=== PATIENT | male | born 1990 | race Two or more races ===

== ENCOUNTER 2018-04-27 02:12 | Emergency (ER) | payer MEDICAID ==
[~2018-04-27] VITALS: Ht 182.9 cm; Wt 79.4 kg
[2018-04-27] MEDS ORDERED: IV NS 0.9% 1,000 ML BAG IV ONE ×2 (02:30→04:00)
--- NOTE | 2018-04-27 02:30 | NUR ---
PT BIBSELF COMPLAINING OF GENERALIZED BODY PAIN X7 HOURS. PT COMPLAINING OF ABDOMINAL PAIN, NAUSEA, HEADACHE. PT DENIES SOB, CHEST PAIN, V/D. PT IS AAOX4. RESPIRATIONS EVEN AND UNLABORED. SKIN WARM AND INTACT. NO ACUTE DISTRESS NOTED AT THIS TIME. PT PLACED ON MONITOR, WILL CONTINUE TO MONITOR.
--- NOTE | 2018-04-27 02:41 | NUR ---
RT AT BEDSIDE FOR ABG
--- NOTE | 2018-04-27 02:45 | NUR ---
IV INITIATED LEFT AC 18G. LABS DRAWN FROM SITE. ELEMENTARY INSTRUCTIONAL COACH AT BEDSIDE FOR COLLECTION. IV INTACT AND PATENT.
[2018-04-27 02:48] LABS: ABG BASE EXCESS -1.9 mmol/L; ABG OXYGEN SATURATION 95.2 % (92.0-98.5); ABG PCO2 42.1 mmHg (35.0-45.0); ABG PH 7.364 (7.350-7.450); ABG PO2 86.5 mmHg (75.0-100.0); AaDO2 12.8 mmHg; COHb 3.2 % (0.5-1.5); O2Hb 92.2 % (94.0-97.0); SITE, ABG Right Radial; VENT MODE, BG ROOM AIR
[2018-04-27] MEDS ORDERED: oxyCODONE/APAP (5/325 MG) 1 UDTAB TABLET ONE (02:59)
[2018-04-27] MEDS ORDERED: ONDANSETRON HCL/PF 4 MG/2 ML VIAL ONE (02:59)
[2018-04-27] MEDS ORDERED: oxyCODONE/APAP (5/325 MG) 1 UDTAB TABLET PO ONE (03:00)
[2018-04-27] MEDS ORDERED: ONDANSETRON HCL/PF - ER 4 MG/2 ML VIAL IV ONE (03:00)
[2018-04-27 03:08] LABS: BASOPHILS # (AUTO) 0.1 /CMM (0.0-0.2); BASOPHILS % (AUTO) 0.9 % (0.0-2.0); EOSINOPHILS % (AUTO) 0.6 % (0.0-6.0); HEMATOCRIT 44 % (39-51); HEMOGLOBIN 14.5 g/dL (13.5-17.5); LYMPHOCYTES % (AUTO) 28.4 % (20.0-44.0); MEAN CORPUSCULAR HGB CONC 33 g/dl (31.0-36.0); MEAN CORPUSCULAR VOLUME 94 fL (80-96); MONOCYTES # (AUTO) 0.8 /CMM (0.1-1.30); MONOCYTES % (AUTO) 7.4 % (2.0-12.0); NEUTROPHILS # (AUTO) 6.7 /CMM (1.8-8.9); NEUTROPHILS % (AUTO) 62.7 % (43.0-81.0); PLATELET COUNT (AUTO) 264 /CMM (150-450); RED BLOOD CELL COUNT(AUTO) 4.66 MIL/uL (4.5-6.0); WHITE BLOOD COUNT (AUTO) 10.7 K/uL (4.3-11.0)
[2018-04-27 03:36] LABS: ALBUMIN 3.8 g/dL (3.4-5.0); BILIRUBIN,DIRECT 0.1 mg/dL (0.0-0.2); BILIRUBIN,TOTAL 0.7 mg/dL (0.2-1.0); CALCIUM, SERUM 8.8 mg/dL (8.5-10.1); CREATININE 1.4 mg/dL (0.6-1.3); TOTAL PROTEIN, SERUM 7.7 g/dL (6.4-8.2)
[2018-04-27] MEDS ORDERED: POTASSIUM CHLORIDE 20 MEQ TAB.PRT.SR PO ONE ×2 (04:00→04:07)
[2018-04-27] MEDS ORDERED: INSULIN REGULAR, HUMAN 100 UNIT/ML 10 ML VIAL IV ONE (04:00)
[2018-04-27] MEDS ORDERED: INSULIN REGULAR, HUMAN 100 UNIT/ML 10 ML VIAL ONE (04:07)
--- NOTE | 2018-04-27 05:27 | NUR ---
PT RESTING COMFORTABLY IN BED. DOZING INTERMITTENTLY BUT EASILY AROUSABLE. VITAL SIGNS STABLE. WILL CONTINUE TO MONITOR
[2018-04-27 06:15] LABS: CALCIUM, SERUM 7.7 mg/dL (8.5-10.1); CREATININE 1.3 mg/dL (0.6-1.3); POTASSIUM 3.6 mmol/L (3.5-5.1)
[2018-04-27 09:09] VITALS: BP 152/88
== END 2018-04-27 09:10 | disposition home or self-care (01) ==
LOC: ER 02:15
DX: E10.10 Type 1 diabetes mellitus with ketoacidosis without coma (principal); Z90.89 Acquired absence of other organs
CPT/HCPCS: 36415; 36600; 80048-TC; 80076-TC; 82010-TC; 82803-TC; 82962-TC; 83605-TC; 85025-TC; A4606; J1815; J2405; J7030; Z7610

== ENCOUNTER 2018-08-13 01:46 | Emergency (ER) | payer MEDICAID ==
[~2018-08-13] VITALS: Ht 182.9 cm; Wt 77.1 kg
--- NOTE | 2018-08-13 01:56 | NUR ---
PT BIBS FOR NAUSEA X ALL DAY; PT AAOX4, PT ON MONITOR, BS OF = HI; VSS, NAD NOTED, CHEKO RIZVI
[2018-08-13] MEDS ORDERED: ONDANSETRON HCL/PF 4 MG/2 ML VIAL ONE (01:59)
[2018-08-13] MEDS ORDERED: IV NS 0.9% 1,000 ML BAG IV ONE ×2 (02:00→03:30)
[2018-08-13] MEDS ORDERED: ONDANSETRON HCL/PF - ER 4 MG/2 ML VIAL IV ONE (02:00)
[2018-08-13] MEDS ORDERED: KETOROLAC TROMETHAMINE INJ 30 MG/ML VIAL ONE (02:05)
[2018-08-13 02:13] LABS: BASOPHILS # (AUTO) 0.1 /CMM (0.0-0.2); BASOPHILS % (AUTO) 0.6 % (0.0-2.0); EOSINOPHILS % (AUTO) 0.5 % (0.0-6.0); HEMATOCRIT 42 % (39-51); HEMOGLOBIN 13.8 g/dL (13.5-17.5); LYMPHOCYTES # (AUTO) 2.3 /CMM (0.8-4.8); LYMPHOCYTES % (AUTO) 23.1 % (20.0-44.0); MEAN CORPUSCULAR HGB CONC 33 g/dl (31.0-36.0); MEAN CORPUSCULAR VOLUME 93 fL (80-96); MONOCYTES # (AUTO) 0.8 /CMM (0.1-1.30); NEUTROPHILS # (AUTO) 6.7 /CMM (1.8-8.9); NEUTROPHILS % (AUTO) 67.8 % (43.0-81.0); PLATELET COUNT (AUTO) 261 /CMM (150-450); RED BLOOD CELL COUNT(AUTO) 4.54 MIL/uL (4.5-6.0); WHITE BLOOD COUNT (AUTO) 9.9 K/uL (4.3-11.0)
--- NOTE | 2018-08-13 02:17 | NUR ---
CALLED [facility]. SPOKE TO HOUSE JACOB HURT. REQUESTED PT MEDICAL RECORDS. WAITING FOR FAX NUMBER TO FAX CONSENT FOR MEDICAL INFORMATION.
[2018-08-13 02:26] LABS: ALANINE AMINOTRANSFERASE 20 U/L (12-78); ALBUMIN 4.1 g/dL (3.4-5.0); ALKALINE PHOSPHATASE 74 U/L (46-116); ASPARTATE AMINOTRANSFERASE 17 U/L (15-37); BILIRUBIN,DIRECT 0.2 mg/dL (0.0-0.2); BILIRUBIN,TOTAL 0.8 mg/dL (0.2-1.0); CALCIUM, SERUM 8.9 mg/dL (8.5-10.1); CARBON DIOXIDE 24 mmol/L (21-32); CHLORIDE 94 mmol/L (98-107); CREATININE 1.5 mg/dL (0.6-1.3); LIPASE 107 U/L (73-393); POTASSIUM 4.3 mmol/L (3.5-5.1); SODIUM SERUM 130 mmol/L (136-145); TOTAL PROTEIN, SERUM 7.2 g/dL (6.4-8.2); UREA NITROGEN, BLOOD 17 mg/dL (7-18)
[2018-08-13 02:28] LABS: GLUCOSE 727 mg/dL (74-106)
[2018-08-13] MEDS ORDERED: KETOROLAC TROMETHAMINE INJ 30 MG/ML VIAL IV ONE (02:30)
[2018-08-13 03:27] LABS: APPEARANCE,URINE CLEAR (CLEAR); BILIRUBIN,URINE NEGATIVE (NEGATIVE); BLOOD, URINE NEGATIVE Ery/uL (NEGATIVE); COLOR,URINE YELLOW (YELLOW); KETONES,URINE TRACE (NEGATIVE); LEUKOCYTE ESTERASE ,URINE NEGATIVE (NEGATIVE); NITRITE, URINE NEGATIVE (NEGATIVE); PROTEIN,URINE NEGATIVE (NEGATIVE); UGLUCOSE 3+ mg/dL (NEGATIVE); UROBILINOGEN,URINE 0.2 EU/dL (0.2)
[2018-08-13] MEDS ORDERED: POTASSIUM CL. PREMIX PERIPHER. 50 ML IV ONE (03:29)
[2018-08-13] MEDS ORDERED: INSULIN REGULAR, HUMAN 100 UNIT/ML 10 ML VIAL IV ONE (03:30)
[2018-08-13] MEDS ORDERED: POTASSIUM CHLORIDE 20 MEQ TAB.PRT.SR PO ONE ×2 (03:30→03:38)
[2018-08-13 03:34] LABS: BACTERIA,URINE Rare /HPF (None Seen); RBC,URINE 0-2 /HPF (0-2); SQUAMOUS EPITHELIAL CELL,UR Rare /HPF (None Seen); WBC,URINE 0-2 /HPF (0-3)
[2018-08-13] MEDS ORDERED: POTASSIUM CL. PREMIX PERIPHER. 50 ML ONE (03:37)
[2018-08-13] MEDS ORDERED: INSULIN REGULAR, HUMAN 100 UNIT/ML 10 ML VIAL ONE (03:40)
[2018-08-13] MEDS ORDERED: HYDROCODONE/APAP 10/325MG 1 EA TABLET ONE (04:23)
[2018-08-13] MEDS ORDERED: HYDROCODONE/APAP 10/325MG 1 EA TABLET PO ONE (04:30)
[2018-08-13 06:24] VITALS: BP 122/75
--- NOTE | 2018-08-13 06:24 | NUR ---
Patient discharged to home in stable condition. Written and verbal after care instructions given. Patient verbalizes understanding of instruction. IV removed. Catheter intact and site benign. Pressure and 4x4 applied to site. No bleeding noted.
== END 2018-08-13 06:25 | disposition home or self-care (01) ==
LOC: ER 01:47
DX: E10.65 Type 1 diabetes mellitus with hyperglycemia (principal); R11.2 Nausea with vomiting, unspecified; R10.10 Upper abdominal pain, unspecified; Z90.89 Acquired absence of other organs
CPT/HCPCS: 36415; 71045-TC; 80048-TC; 80076-TC; 81000-TC; 82010-TC; 82962-TC; 83690-TC; 84484-TC; 85025-TC; 85730-TC; J1815; J1885; J2405; J3480; J7030

== ENCOUNTER 2019-02-08 22:01 | Emergency (ER) | payer MEDICAID ==
[~2019-02-08] VITALS: Ht 182.9 cm; Wt 80.3 kg
[2019-02-08 22:23] VITALS: BP 108/76
== END 2019-02-09 01:32 | disposition home or self-care (01) ==
LOC: ER 22:03
DX: S39.012A Strain of muscle, fascia and tendon of lower back, initial encounter (principal); R11.2 Nausea with vomiting, unspecified; R10.9 Unspecified abdominal pain; E10.9 Type 1 diabetes mellitus without complications; Z90.89 Acquired absence of other organs; X58.XXXA Exposure to other specified factors, initial encounter; Y93.89 Activity, other specified; Y92.89 Other specified places as the place of occurrence of the external cause; Y99.8 Other external cause status
CPT/HCPCS: 72110-TC

== ENCOUNTER 2019-03-26 02:33 | Emergency (ER) | payer MEDICAID ==
[~2019-03-26] VITALS: Ht 182.9 cm; Wt 79.4 kg
--- NOTE | 2019-03-26 02:37 | NUR ---
PT BIB SELF C/O ABD PAIN WITH N/V SINCE YESTERDAY. PT IS AAOX4, NOT IN RESPIRAOTRY DISTRESS, V/S STABLE, KEPT RESTED AND COMFORTABLE, WILL CONTINUE TO MONITOR.
[2019-03-26] MEDS ORDERED: ONDANSETRON HCL/PF 4 MG/2 ML VIAL ONE (02:48)
--- NOTE | 2019-03-26 02:51 | NUR ---
AT BEDSIDE FOR EVAL.
[2019-03-26] MEDS ORDERED: ONDANSETRON HCL/PF 4 MG/2 ML VIAL IVP ONE (03:00)
[2019-03-26] MEDS ORDERED: MAG HYDROX/AL HYDROX/SIMETH 30 ML UDC PO ONE ×2 (03:00→05:00)
[2019-03-26] MEDS ORDERED: IV NS 0.9% 1,000 ML BAG IV ONE (03:00)
--- NOTE | 2019-03-26 03:05 | NUR ---
IV LINE ESTABLISHED, BLOOD DRAWN AND SENT TO LAB.
[2019-03-26 03:10] LABS: BASOPHILS # (AUTO) 0.1 /CMM (0.0-0.2); BASOPHILS % (AUTO) 0.8 % (0.0-2.0); EOSINOPHILS % (AUTO) 0.4 % (0.0-6.0); HEMATOCRIT 45 % (39-51); HEMOGLOBIN 15.5 g/dL (13.5-17.5); LYMPHOCYTES # (AUTO) 3.5 /CMM (0.8-4.8); LYMPHOCYTES % (AUTO) 27.5 % (20.0-44.0); MEAN CORPUSCULAR HGB CONC 35 g/dl (31.0-36.0); MEAN CORPUSCULAR VOLUME 89 fL (80-96); MONOCYTES # (AUTO) 0.9 /CMM (0.1-1.30); MONOCYTES % (AUTO) 7.2 % (2.0-12.0); NEUTROPHILS # (AUTO) 8.3 /CMM (1.8-8.9); NEUTROPHILS % (AUTO) 64.1 % (43.0-81.0); PLATELET COUNT (AUTO) 292 /CMM (150-450); WHITE BLOOD COUNT (AUTO) 12.9 K/uL (4.3-11.0)
[2019-03-26] MEDS ORDERED: MAG HYDROX/AL HYDROX/SIMETH 30 ML UDC ONE ×2 (03:17→04:51)
[2019-03-26 03:25] LABS: ALBUMIN 3.9 g/dL (3.4-5.0); BILIRUBIN,DIRECT 0.2 mg/dL (0.0-0.2); BILIRUBIN,TOTAL 0.8 mg/dL (0.2-1.0); CALCIUM, SERUM 8.6 mg/dL (8.5-10.1); CREATININE 1.1 mg/dL (0.6-1.3); POTASSIUM 3.3 mmol/L (3.5-5.1); TOTAL PROTEIN, SERUM 7.7 g/dL (6.4-8.2)
--- NOTE | 2019-03-26 04:41 | NUR ---
PT IS BACK FROM THE CT SCAN.
[2019-03-26] MEDS ORDERED: PANTOPRAZOLE 40 MG TABLET.DR PO ONE ×2 (04:51→05:00)
--- NOTE | 2019-03-26 05:20 | NUR ---
IV removed. Catheter intact and site benign. Pressure and 4x4 applied to site. No bleeding noted. Patient discharged to home in stable condition. Written and verbal after care instructions given. Patient verbalizes understanding of instruction.
[2019-03-26 05:21] VITALS: BP 122/91
== END 2019-03-26 05:22 | disposition home or self-care (01) ==
LOC: ER 02:34
DX: K52.9 Noninfective gastroenteritis and colitis, unspecified (principal); E10.9 Type 1 diabetes mellitus without complications; R11.2 Nausea with vomiting, unspecified; R10.13 Epigastric pain; Z90.89 Acquired absence of other organs
CPT/HCPCS: 36415; 74177; 80048; 80076; 82962; 83690; 85025; 96361; 96374; 99284; J2405; J7030

== ENCOUNTER 2021-08-23 19:08 | Emergency (ER) | payer MEDICAID ==
[~2021-08-23] VITALS: Ht 180.3 cm; Wt 77.1 kg
[2021-08-23] MEDS ORDERED: Potassium Chloride 20 MEQ in IV NS 0.9% 1,000 ML IV ONE (19:10)
--- NOTE | 2021-08-23 19:20 | NUR ---
BIBS FOR C/O N/V/D AND ABD PAIN, "I'M IN DKA". BLOOD SUGAR READ AT HOME "HI RAN OUT OF LANTUS X 2 DAYS. PATIENT ALERT AND ORIENTED X3. AMBULATORY WITH NON LABORED BREATHING IN BED 04 ON MONITOR.
[2021-08-23] MEDS ORDERED: ONDANSETRON HCL/PF - ER 4 MG/2 ML VIAL IV ONE (19:30)
[2021-08-23] MEDS ORDERED: IV NS 0.9% 2,000 ML IV ONE (19:30)
[2021-08-23] MEDS ORDERED: HALOPERIDOL LACTATE INJ 5 MG/ML VIAL ONE (19:36)
[2021-08-23] MEDS ORDERED: MORPHINE SULFATE INJ 4 MG/ML DISP.SYRIN ONE (19:36)
--- NOTE | 2021-08-23 19:44 | NUR ---
BLOOD COLLECTED AND SENT TO LAB
--- NOTE | 2021-08-23 19:45 | NUR ---
PATIENT UNABLE TO PROVIDE URINE AT THIS TIME.
[2021-08-23] MEDS ORDERED: MORPHINE SULFATE INJ 2 MG/ML DISP.SYRIN IV ONE (20:00)
[2021-08-23] MEDS ORDERED: HALOPERIDOL LACTATE INJ 5 MG/ML VIAL IM ONE (20:00)
[2021-08-23 20:08] LABS: CALCIUM, SERUM 9.6 mg/dL (8.5-10.1); CREATININE 1.7 mg/dL (0.6-1.3); POTASSIUM 3.5 mmol/L (3.5-5.1)
[2021-08-23 20:12] LABS: BASOPHILS # (AUTO) 0.1 K/uL (0.0-0.2); BASOPHILS % (AUTO) 0.3 % (0.0-2.0); HEMATOCRIT 45 % (39-51); HEMOGLOBIN 15.2 g/dL (13.5-17.5); LYMPHOCYTES # (AUTO) 1.6 K/uL (0.8-4.8); LYMPHOCYTES % (AUTO) 9.2 % (20.0-44.0); MEAN CORPUSCULAR HGB CONC 34 g/dl (31.0-36.0); MEAN CORPUSCULAR VOLUME 90 fL (80-96); MONOCYTES # (AUTO) 0.5 K/uL (0.1-1.30); MONOCYTES % (AUTO) 2.6 % (2.0-12.0); NEUTROPHILS # (AUTO) 15.3 K/uL (1.8-8.9); NEUTROPHILS % (AUTO) 87.9 % (43.0-81.0); PLATELET COUNT (AUTO) 383 K/uL (150-450); RED BLOOD CELL COUNT(AUTO) 5.04 MIL/uL (4.5-6.0); WHITE BLOOD COUNT (AUTO) 17.4 K/uL (4.3-11.0)
--- NOTE | 2021-08-23 20:19 | NUR ---
COVID SWAB COLLECTED AND SENT TO LAB
[2021-08-23] MEDS ORDERED: INSULIN REGULAR, HUMAN 100 UNIT/ML 10 ML VIAL ONE (20:28)
--- NOTE | 2021-08-23 20:28 | NUR ---
Pt was made aware he will be admitted. Pt stated he would like to AMA and not be admitted. MD aware. MD will speak to the pt regarding plan of care.
[2021-08-23] MEDS ORDERED: IV PREMIX NS +20MEQ KCL 1,000 L IV PRN (20:30)
[2021-08-23] MEDS ORDERED: INSULIN REGULAR, HUMAN 100 UNITS in IV NS 0.9% 100 ML IV PRN ×2 (20:30)
[2021-08-23 20:34] LABS: ALBUMIN 4.5 g/dL (3.4-5.0); BILIRUBIN,TOTAL 0.9 mg/dL (0.2-1.0); TOTAL PROTEIN, SERUM 8.9 g/dL (6.4-8.2)
--- NOTE | 2021-08-23 20:38 | NUR ---
DR MORA AT BED SIDE SPEAKING TO THE PT REGARDING RISK VS BENEFITS OF LEAVING AMA
[2021-08-23 20:49] LABS: MAGNESIUM 1.7 mg/dL (1.8-2.4); PHOSPHORUS 2.1 mg/dL (2.5-4.9)
--- NOTE | 2021-08-23 21:13 | NUR ---
Patient does not wish to proceed with medical care recommended by Dr. Hale. Patient given information related to possible complications, up to and including , which could occur as a result of leaving the hospital at this time. Patient verbalizes understanding of risks involved due to leaving against medical advice. Patient has signed AMA form. IV line removed.
[2021-08-23 21:22] VITALS: BP 122/67
== END 2021-08-23 21:22 | disposition left against medical advice (07) ==
LOC: ER 19:09
DX: E10.10 Type 1 diabetes mellitus with ketoacidosis without coma (principal); Z79.4 Long term (current) use of insulin; Z53.29 Procedure and treatment not carried out because of patient's decision for other reasons; Z20.822 Contact with and (suspected) exposure to COVID-19
CPT/HCPCS: 36415; 80053; 83690; 83735; 84100; 85025; 87426; 96361; 96365; 96366; 96375; 99291; C9803; J1630; J1815; J2270; J2405; J3480; J7030 ×4; J3490

== ENCOUNTER 2021-09-11 20:44 | Inpatient (IN) | payer MEDICAID ==
[~2021-09-11] VITALS: Ht 180.3 cm; Wt 73.7 kg
[2021-09-11] MEDS ORDERED: IV NS 0.9% 1,000 ML BAG IV ONE ×2 (21:00→23:30)
[2021-09-11] MEDS ORDERED: ONDANSETRON HCL/PF 4 MG/2 ML VIAL IVP ONE (21:00)
--- NOTE | 2021-09-11 21:00 | NUR ---
CLOTH SECONDS SORTER @ BEDSIDE
--- NOTE | 2021-09-11 21:00 | NUR ---
BIBS C/O NAUSEA AND VOMITTING SINCE 12PM. ALSO C/O BODY AND STOMACH PAIN BS 207. PATIENT ALERT AND ORIENTED X3. AMBULATORY WITH NON LABORED BREATHING IN BED 03 AWAITING MD RIZVI
--- NOTE | 2021-09-11 21:01 | NUR ---
PT UNABLE TO GIVE URINE AT THIS TIME.
[2021-09-11] MEDS ORDERED: ONDANSETRON HCL/PF 4 MG/2 ML VIAL ONE (21:02)
--- NOTE | 2021-09-11 21:04 | NUR ---
BLOOD COLLECTED AND SENT TO LAB
[2021-09-11 21:22] LABS: BASOPHILS # (AUTO) 0.1 K/uL (0.0-0.2); BASOPHILS % (AUTO) 0.5 % (0.0-2.0); EOSINOPHILS % (AUTO) 0.4 % (0.0-6.0); HEMATOCRIT 45 % (39-51); HEMOGLOBIN 15.1 g/dL (13.5-17.5); LYMPHOCYTES % (AUTO) 6.3 % (20.0-44.0); MEAN CORPUSCULAR HGB CONC 34 g/dl (31.0-36.0); MEAN CORPUSCULAR VOLUME 88 fL (80-96); MONOCYTES # (AUTO) 0.4 K/uL (0.1-1.30); MONOCYTES % (AUTO) 2.4 % (2.0-12.0); NEUTROPHILS # (AUTO) 14.5 K/uL (1.8-8.9); NEUTROPHILS % (AUTO) 90.4 % (43.0-81.0); PLATELET COUNT (AUTO) 377 K/uL (150-450); RED BLOOD CELL COUNT(AUTO) 5.09 MIL/uL (4.5-6.0)
[2021-09-11 21:34] LABS: CALCIUM, SERUM 10.2 mg/dL (8.5-10.1); CREATININE 1.7 mg/dL (0.6-1.3)
[2021-09-11] MEDS ORDERED: MORPHINE SULFATE INJ 2 MG/ML DISP.SYRIN ONE (21:52)
[2021-09-11] MEDS ORDERED: FAMOTIDINE/PF INJ 20 MG/2 ML VIAL IV ONE ×2 (21:52→22:00)
[2021-09-11] MEDS ORDERED: LORAZEPAM INJ 2 MG/ML VIAL ONE (21:56)
[2021-09-11] MEDS ORDERED: LORAZEPAM INJ 2 MG/ML VIAL IV ONE (22:00)
[2021-09-11] MEDS ORDERED: MORPHINE SULFATE INJ 2 MG/ML DISP.SYRIN IV ONE (22:00)
[2021-09-11 22:13] LABS: ALBUMIN 4.6 g/dL (3.4-5.0); BILIRUBIN,DIRECT 0.1 mg/dL (0.0-0.2); BILIRUBIN,TOTAL 0.8 mg/dL (0.2-1.0); TOTAL PROTEIN, SERUM 9.6 g/dL (6.4-8.2)
--- NOTE | 2021-09-11 22:19 | NUR ---
XRAY AT BEDSIDE
[2021-09-11 22:40] LABS: BAND % (MANUAL) 1 % (0.0-5.0); LYMPHOCYTES % (MANUAL) 9 % (16-48); NEUTROPHILS % (MANUAL) 90 (42-76)
[2021-09-11 23:25] LABS: ABG BASE EXCESS -0.1 mmol/L; ABG PH 7.405 (7.350-7.450); ABG PO2 38.6 mmHg (75.0-100.0); COHb 0.6 % (0.5-1.5); MetHb 0.5 % (0.0-1.5); O2Hb 78.2 % (94.0-97.0); VENT MODE, BG room air
--- NOTE | 2021-09-11 23:32 | NUR ---
COVID TEST COLLECTED AND SENT TO LAB
[2021-09-11 23:36] LABS: BILIRUBIN,URINE MODERATE (NEGATIVE); COLOR,URINE YELLOW (YELLOW); LEUKOCYTE ESTERASE ,URINE NEGATIVE (NEGATIVE); NITRITE, URINE NEGATIVE (NEGATIVE); PROTEIN,URINE >=300 mg/dl (NEGATIVE); UGLUCOSE NEGATIVE (NEGATIVE); UROBILINOGEN,URINE 0.2 EU/dL (0.2)
[2021-09-12] MEDS ORDERED: MAGNESIUM HYDROXIDE 30 ML UDC PO PRN
[2021-09-12] MEDS ORDERED: Z GUARD REMEDY 4 OZ OINT TP PRN
[2021-09-12] MEDS ORDERED: ACETAMINOPHEN 325 MG TABLET PO PRN
[2021-09-12] MEDS ORDERED: MORPHINE SULFATE INJ 2 MG/ML DISP.SYRIN IV PRN
[2021-09-12] MEDS ORDERED: MAG HYDROX/AL HYDROX/SIMETH 30 ML UDC PO PRN
[2021-09-12] MEDS ORDERED: DEXTROSE 50%-WATER 50 ML DISP.SYRIN IV PRN
--- NOTE | 2021-09-12 00:07 | NUR ---
MRSA SWAB COLLECTED AND SENT TO LAB. PATIENT'S BELONGINGS LIST DONE.
[2021-09-12] MEDS ORDERED: MORPHINE SULFATE INJ 2 MG/ML DISP.SYRIN ONE ×2 (02:21→08:14)
[2021-09-12] MEDS ORDERED: ONDANSETRON HCL/PF 4 MG/2 ML VIAL ONE (03:00)
[2021-09-12] MEDS: IV NS 0.9% 1,000 ML IV PRN ×3 (03:10→18:06)
[2021-09-12] MEDS: ONDANSETRON HCL/PF 4 MG/2 ML VIAL IVP PRN ×2 (03:10→10:47)
[2021-09-12 05:13] LABS: BASOPHILS # (AUTO) 0.1 K/uL (0.0-0.2); BASOPHILS % (AUTO) 0.4 % (0.0-2.0); HEMATOCRIT 42 % (39-51); HEMOGLOBIN 13.9 g/dL (13.5-17.5); LYMPHOCYTES # (AUTO) 1.8 K/uL (0.8-4.8); LYMPHOCYTES % (AUTO) 11.2 % (20.0-44.0); MEAN CORPUSCULAR HGB CONC 33 g/dl (31.0-36.0); MEAN CORPUSCULAR VOLUME 89 fL (80-96); MONOCYTES # (AUTO) 1.2 K/uL (0.1-1.30); MONOCYTES % (AUTO) 7.8 % (2.0-12.0); NEUTROPHILS # (AUTO) 12.8 K/uL (1.8-8.9); NEUTROPHILS % (AUTO) 80.6 % (43.0-81.0); PLATELET COUNT (AUTO) 312 K/uL (150-450); WHITE BLOOD COUNT (AUTO) 15.8 K/uL (4.3-11.0)
[2021-09-12 05:37] LABS: CALCIUM, SERUM 8.8 mg/dL (8.5-10.1); CREATININE 1.3 mg/dL (0.6-1.3); MAGNESIUM 1.9 mg/dL (1.8-2.4); PHOSPHORUS 3.8 mg/dL (2.5-4.9); POTASSIUM 3.7 mmol/L (3.5-5.1)
[2021-09-12] MEDS: BLOOD SUGAR DIAGNOSTIC 1 EACH STRIP VI SCH ×4 (07:29→21:35)
[2021-09-12] MEDS ORDERED: PANT40TA49 PO (07:49)
[2021-09-12] MEDS ORDERED: INSU100I26 SQ (07:49)
[2021-09-12] MEDS ORDERED: LORA-258 PO (07:49)
[2021-09-12] MEDS ORDERED: INSU100I34 SQ (07:49)
[2021-09-12] MEDS ORDERED: PANTOPRAZOLE 40 MG VIAL ONE (07:57)
[2021-09-12] MEDS: PANTOPRAZOLE 40 MG VIAL IV SCH (08:00)
[2021-09-12] MEDS: MORPHINE SULFATE INJ 2 MG/ML DISP.SYRIN IV PRN ×2 (08:20→13:11)
[2021-09-12] MEDS ORDERED: LORAZEPAM INJ 2 MG/ML VIAL ONE (08:30)
[2021-09-12] MEDS: LORAZEPAM INJ 2 MG/ML VIAL IV PRN ×3 (08:35→21:39)
--- NOTE | 2021-09-12 09:48 | NUR ---
room 313-1
--- NOTE | 2021-09-12 10:05 | NUR ---
report given to Lynsey for martina.
--- NOTE | 2021-09-12 10:06 | NUR ---
wheeled patient via wheelchair in no distress going to med surg room 313-1.
[2021-09-12 10:10] VITALS: BP 188/100
--- NOTE | 2021-09-12 10:10 | NUR ---
MS REFRIGERATION MECHANIC HELPER NOTES RECEIVED PATIENT FROM ER ENDORSED BY JACKIE LANDEROS VIA [facility]. PATIENT IS AWAKE AND A/O X4. ON ROOM AIR TOLERATING WELL. NO SOB NOTED. NOT IN DISTRESS. PATIENT IS AMBULATORY. SKIN IS INTACT. WITH COMPLAINTS OF ABDOMINAL PAIN AT THE SCALE OF 6/10. PATIENT SEEN VOMITING WATERY FLUID. COMFORT MEASURES PROVIDED. WITH IV ACCESS AT RIGHT AC G18 WITH IVF NS AT 125ML/HR INFUSING WELL. IV SITE IS PATENT AND INTACT. SAFETY MEASURES IN PLACED. CALL LIGHT WITHIN REACH. BED ON LOWEST LOCKED POSITION, SIDE RAILS UP X2. WILL CONTINUE TO MONITOR.
[2021-09-12 11:00] VITALS: BP 188/100
[2021-09-12] MEDS: INSULIN REGULAR, HUMAN 100 UNIT/ML 3 ML VIAL SQ PRN ×2 (13:02→18:04)
[2021-09-12] MEDS: MORPHINE SULFATE INJ 4 MG/ML DISP.SYRIN IV PRN ×3 (13:51→22:52)
[2021-09-12] MEDS: ONDANSETRON HCL/PF 4 MG/2 ML VIAL IVP SCH ×2 (18:03→23:11)
[2021-09-12] MEDS: HALOPERIDOL 5 MG TABLET PO SCH (18:03)
--- NOTE | 2021-09-12 18:44 | NUR ---
MS RN CLOSING NOTES PATIENT IN BED, AWAKE, ALERT AND ORIENTED X 4. ABLE TO MAKE NEEDS KNOWN. ON ROOM AIR TOLERATING WELL. NO COMPLAINTS OF PAIN AND DISCOMFORT AT THIS TIME. WITH IV ACCESS AT RIGHT AC G18 WITH IVF NS AT 125ML/HR INFUSING WELL. DUE MEDS GIVEN. SAFETY MEASURES IN PLACED: BED LOCKED ON LOWEST POSITION, SIDE RAILS UPX2, CALL LIGHT WITHIN REACH. WILL ENDORSE TO NEXT SHIFT FOR DONTAE.
[2021-09-12 20:00] VITALS: BP 149/86
[2021-09-12] MEDS: *INSULIN REGULAR(HUMULIN R)HUM 100 UNIT/ML VIAL SQ PRN (21:37)
[2021-09-13] MEDS: LORAZEPAM INJ 2 MG/ML VIAL IV PRN ×4 (03:51→23:33)
[2021-09-13] MEDS: MORPHINE SULFATE INJ 4 MG/ML DISP.SYRIN IV PRN ×4 (03:56→20:07)
[2021-09-13] MEDS: ONDANSETRON HCL/PF 4 MG/2 ML VIAL IVP SCH ×4 (06:01→23:34)
[2021-09-13] MEDS: BLOOD SUGAR DIAGNOSTIC 1 EACH STRIP VI SCH ×4 (06:38→21:46)
[2021-09-13 06:42] LABS: BASOPHILS # (AUTO) 0.1 K/uL (0.0-0.2); BASOPHILS % (AUTO) 0.6 % (0.0-2.0); HEMATOCRIT 36 % (39-51); HEMOGLOBIN 12.5 g/dL (13.5-17.5); LYMPHOCYTES # (AUTO) 3.9 K/uL (0.8-4.8); MEAN CORPUSCULAR HGB CONC 35 g/dl (31.0-36.0); MEAN CORPUSCULAR VOLUME 88 fL (80-96); MONOCYTES # (AUTO) 0.9 K/uL (0.1-1.30); MONOCYTES % (AUTO) 8.1 % (2.0-12.0); NEUTROPHILS # (AUTO) 5.6 K/uL (1.8-8.9); NEUTROPHILS % (AUTO) 53.3 % (43.0-81.0); PLATELET COUNT (AUTO) 271 K/uL (150-450); RED BLOOD CELL COUNT(AUTO) 4.08 MIL/uL (4.5-6.0); WHITE BLOOD COUNT (AUTO) 10.5 K/uL (4.3-11.0)
[2021-09-13 07:24] LABS: POTASSIUM 3.4 mmol/L (3.5-5.1)
--- NOTE | 2021-09-13 07:30 | NUR ---
MS RN OPENING NOTES PATIENT IN BED, AWAKE, ALERT AND ORIENTED X 4. ABLE TO MAKE NEEDS KNOWN. ON ROOM AIR TOLERATING WELL. NO COMPLAINTS OF PAIN AND DISCOMFORT AT THIS TIME. WITH IV ACCESS AT RIGHT AC G18 WITH IVF NS AT 125ML/HR INFUSING WELL. SAFETY MEASURES IN PLACED: BED LOCKED ON LOWEST POSITION, SIDE RAILS UPX2, CALL LIGHT WITHIN REACH. WILL ENDORSE TO NEXT SHIFT FOR DONTAE.
[2021-09-13 08:00] VITALS: BP 117/71
[2021-09-13] MEDS: PANTOPRAZOLE 40 MG VIAL IV SCH (08:25)
[2021-09-13] MEDS: HALOPERIDOL 5 MG TABLET PO SCH ×2 (08:25→16:05)
[2021-09-13] MEDS: INSULIN GLARGINE, 100 UNIT/ML CARTRIDGE SQ SCH (08:38)
[2021-09-13] MEDS ORDERED: POTASSIUM CHLORIDE 20 MEQ POWDER PACKET PO SCH (11:00)
[2021-09-13] MEDS: INSULIN REGULAR, HUMAN 100 UNIT/ML 3 ML VIAL SQ PRN ×2 (12:50→17:49)
[2021-09-13 16:00] VITALS: BP 126/107
[2021-09-13] MEDS: IV NS 0.9% 1,000 ML IV PRN (17:48)
[2021-09-13 20:00] VITALS: BP 164/97
--- NOTE | 2021-09-13 20:10 | NUR ---
MS RN NOTE PATIENT AWAKE IN BED, ALERT/ORIENTED X 4, PT ABLE TO MAKE NEEDS KNOWN. PATIENT REPORTING 8/10 ABDOMINAL PAIN, PRN MORPHINE 4 MG IV Q4H GIVEN ORDERED. PATIENT STABLE ON RA, NO S/S OF DISTRESS OR SOB NOTED, BREATHING EVEN AND UNLABORED. IV ACCESS ON LEFT AC INTACT AND FLUSHING WELL, INFUSING NS @ 125 ML/HR. PATIENT IS AMBULATORY AND STEADY, BRP. SAFETY MEASURES IN PLACE: CALL LIGHT WITHIN REACH, SIDE RAILS UP X 2, BED LOCKED IN LOWEST POSITION. WILL CONTINUE TO MONITOR PATIENT
--- NOTE | 2021-09-13 21:41 | NUR ---
MS RN NOTE PATIENT BLOOD SUGAR 67, GAVE PATIENT ORANGE JUICE AND SNACK. WILL CONTINUE TO MONITOR
[2021-09-13] MEDS: *INSULIN REGULAR(HUMULIN R)HUM 100 UNIT/ML VIAL SQ PRN (21:47)
--- NOTE | 2021-09-13 23:40 | NUR ---
MS RN NOTE PATIENT FEELING ANXIOUS, REQUESTED ATIVAN, MEDICATION GIVEN ORDERED. PT ALSO REQUESTED TO HAVE IVF DISCONNECTED FOR THE NIGHT SO HE CAN SLEEP WITHOUT HAVING TO KEEP GETTING UP TO PEE, PATIENT DRINKING PLENTY OF FLUIDS. WILL CONTINUE TO MONITOR PATIENT
[2021-09-14] MEDS: MORPHINE SULFATE INJ 4 MG/ML DISP.SYRIN IV PRN (03:21)
[2021-09-14] MEDS: IV NS 0.9% 1,000 ML IV PRN (05:20)
[2021-09-14] MEDS: ONDANSETRON HCL/PF 4 MG/2 ML VIAL IVP SCH ×2 (05:28→11:51)
--- NOTE | 2021-09-14 05:28 | NUR ---
MS RN NOTE PATIENT REFUSED SCHEDULED 6 AM ZOFRAN 4 MG IV, STATED HE DOESN'T HAVE ANY NAUSEA OR VOMITING. WILL CONTINUE TO MONITOR PATIENT
[2021-09-14 06:22] LABS: BASOPHILS % (AUTO) 0.5 % (0.0-2.0); CALCIUM, SERUM 8.5 mg/dL (8.5-10.1); CREATININE 0.9 mg/dL (0.6-1.3); EOSINOPHILS % (AUTO) 1.5 % (0.0-6.0); HEMATOCRIT 36 % (39-51); HEMOGLOBIN 12.3 g/dL (13.5-17.5); LYMPHOCYTES # (AUTO) 2.8 K/uL (0.8-4.8); LYMPHOCYTES % (AUTO) 31.8 % (20.0-44.0); MEAN CORPUSCULAR HGB CONC 34 g/dl (31.0-36.0); MEAN CORPUSCULAR VOLUME 89 fL (80-96); MONOCYTES # (AUTO) 0.8 K/uL (0.1-1.30); MONOCYTES % (AUTO) 8.5 % (2.0-12.0); NEUTROPHILS # (AUTO) 5.1 K/uL (1.8-8.9); NEUTROPHILS % (AUTO) 57.7 % (43.0-81.0); PLATELET COUNT (AUTO) 252 K/uL (150-450); POTASSIUM 3.8 mmol/L (3.5-5.1); RED BLOOD CELL COUNT(AUTO) 4.08 MIL/uL (4.5-6.0); WHITE BLOOD COUNT (AUTO) 8.8 K/uL (4.3-11.0)
--- NOTE | 2021-09-14 06:55 | NUR ---
MS RN NOTE PATIENT BS 58, GAVE ORANGE JUICE WITH SUGAR. WILL REASSESS IN 15 MINUTES
--- NOTE | 2021-09-14 07:24 | NUR ---
MS RN NOTE REASSESSED BS AND IT DROPPED TO 34 DESPITE 5 ORANGE JUICES WITH SUGAR GIVEN. DEXTROSE GIVEN PER PROTOCOL
--- NOTE | 2021-09-14 07:35 | NUR ---
MS RN CLOSING NOTE PATIENT AWAKE IN BED, PT SLEPT WELL THROUGHOUT THE NIGHT. PATIENT STABLE ON RA, NO S/S OF DISTRESS OR SOB NOTED, BREATHING EVEN AND UNLABORED. IV ACCESS ON LEFT AC INTACT AND INFUSING NS @ 125 ML/HR. PATIENT IS AMBULATORY AND STEADY, BRP. MEDICATIONS GIVEN ORDERED, PT NEEDS MET THROUGHOUT SHIFT. BS WAS 34 DESPITE 5 ORANGE JUICES GIVEN WITH SUGAR, GAVE DEXTROSE, ENDORSED TO DAY SHIFT NURSE TO REASSESS BS. SAFETY MEASURES IN PLACE: CALL LIGHT WITHIN REACH, SIDE RAILS UP X 2, BED LOCKED IN LOWEST POSITION. ENDORSED TO DAY SHIFT NURSE FOR CONTINUITY OF CARE
--- NOTE | 2021-09-14 07:43 | NUR ---
RN OPENING NOTES Patient seen comfortably lying in bed, able to make needs known, no tremors, breathing even and unlabored, no shortness of breath, no apparent distress noted, denies any pain or discomfort at this time, no grimacing. Call light left within reach, safety precautions in place, brakes locked, side rails up X 2, will monitor closely for any changes.
--- NOTE | 2021-09-14 08:14 | NUR ---
Blood sugar rechecked and resulted as 181, no s/s of hypo or hyperglycemia, no tremors, no change in level of consciousness, able to make needs known, can follow simple commands, per patient he is feeling okay right now and will call for assistance as needed, call light left within reach, will monitor closely for any changes.
[2021-09-14] MEDS: BLOOD SUGAR DIAGNOSTIC 1 EACH STRIP VI SCH ×2 (08:16→11:52)
[2021-09-14] MEDS: HALOPERIDOL 5 MG TABLET PO SCH (09:19)
[2021-09-14] MEDS: PANTOPRAZOLE 40 MG VIAL IV SCH (09:19)
[2021-09-14] MEDS: INSULIN GLARGINE, 100 UNIT/ML CARTRIDGE SQ SCH (09:21)
[2021-09-14] MEDS: INSULIN REGULAR, HUMAN 100 UNIT/ML 3 ML VIAL SQ PRN (11:52)
--- NOTE | 2021-09-14 12:22 | NUR ---
Patient to be discharged home today, no apparent distress noted, no shortness of breath, respirations even and unlabored, denies any pain or discomfort at this time, abdominal bowel sound present in all quadrants, no grimacing when abdomen palpated, no nausea, no vomiting, no dizziness, no palpitations, no chest pain, no numbness, no s/s of hypo/hyperglycemia, no change in level in consciousness, able to follow simple commands, can make needs known, can ambulate with steady gait. no tremors. Patient made aware of the situation, he signed all discharge paper works, all belongings taken, inventory list signed by patient. Health teaching provided, verbalized understanding and gratitude. Reminded patient to pick up driver prescribed medications in 1 week and to schedule a follow up with primary physician verbalized understanding and gratitude. Skin assessment done prior to discharge, skin intact, warm to touch, no pallor or cyanosis noted. Peripheral IV line on left antecubital removed prior to discharge, complete and intact, no excessive bleeding noted, site covered with dry dressing. Name wristband removed prior to discharge, surgical mask provided for patient to use. RN assisted patient going to the hospital parking lot via wheelchair, left unit at [id number] stable condition, exit care documents handed to patient.
[2021-09-15] MEDS ORDERED: PANTOPRAZOLE 40 MG/PACK PACK PO SCH (09:00)
== END 2021-09-14 12:20 | disposition home or self-care (01) | DRG 48 ==
LOC: ER 20:45 → TRANSITION 09-12 00:39 → MED 09-12 09:50
PROVIDERS: ADMIT Internal Medicine; ATTEND Family Medicine
DX: E11.43 Type 2 diabetes mellitus with diabetic autonomic (poly)neuropathy (principal); N17.0 Acute kidney failure with tubular necrosis; E11.00 Type 2 diabetes mellitus with hyperosmolarity without nonketotic hyperglycemic-hyperosmolar coma (NKHHC); K31.84 Gastroparesis; Z79.4 Long term (current) use of insulin; Z90.49 Acquired absence of other specified parts of digestive tract; Z91.19 Patient's noncompliance with other medical treatment and regimen; Z79.899 Other long term (current) drug therapy; E11.65 Type 2 diabetes mellitus with hyperglycemia
CPT/HCPCS: 36415; 36600; 74021; 80048-TC; 80076-TC; 82010-TC; 82803-TC; 82962-TC; 83605-TC; 83690-TC; 83735-TC; 84100-TC; 85025-TC; 87081-TC; C9113; C9803; G0378; J1815; J2060; J2270; J2405; J3490; J7030

== ENCOUNTER 2021-09-22 11:58 | Emergency (ER) | payer MEDICAID ==
[~2021-09-22] VITALS: Ht 170.2 cm; Wt 77.1 kg
[~2021-09-22 11:58] MED LIST: INSU100I26 SQ; INSU100I34 SQ; LORA-258 PO; PANT40TA49 PO
--- NOTE | 2021-09-22 12:06 | NUR ---
To ER bed 3, c/o "Feeling sick, nausea/vomiting. Blood Glucose monitor Hi." Diaphoretic/clammy,Dry Heaving, blood sugar 48 upon arrival, aaox3, connected to monitor
--- NOTE | 2021-09-22 12:12 | NUR ---
BLOOD SUGAR 148, PA WILMAN AWARE
[2021-09-22] MEDS ORDERED: METOCLOPRAMIDE HCL 10 MG/2 ML VIAL ONE (12:19)
[2021-09-22] MEDS ORDERED: FAMOTIDINE/PF INJ 20 MG/2 ML VIAL IV ONE ×2 (12:20→12:30)
[2021-09-22] MEDS ORDERED: MORPHINE SULFATE INJ 2 MG/ML DISP.SYRIN IV ONE (12:30)
[2021-09-22] MEDS ORDERED: METOCLOPRAMIDE HCL 10 MG/2 ML VIAL IV ONE (12:30)
[2021-09-22] MEDS ORDERED: HALOPERIDOL LACTATE INJ 5 MG/ML VIAL IVP ONE (12:30)
[2021-09-22] MEDS ORDERED: HALOPERIDOL LACTATE INJ 5 MG/ML VIAL ONE (12:41)
[2021-09-22] MEDS ORDERED: MORPHINE SULFATE INJ 4 MG/ML DISP.SYRIN ONE (12:41)
[2021-09-22 12:48] LABS: BASOPHILS # (AUTO) 0.1 K/uL (0.0-0.2); BASOPHILS % (AUTO) 0.6 % (0.0-2.0); EOSINOPHILS % (AUTO) 0.6 % (0.0-6.0); HEMATOCRIT 42 % (39-51); LYMPHOCYTES # (AUTO) 2.6 K/uL (0.8-4.8); LYMPHOCYTES % (AUTO) 17.3 % (20.0-44.0); MEAN CORPUSCULAR HGB CONC 34 g/dl (31.0-36.0); MEAN CORPUSCULAR VOLUME 88 fL (80-96); MONOCYTES # (AUTO) 0.7 K/uL (0.1-1.30); MONOCYTES % (AUTO) 4.8 % (2.0-12.0); NEUTROPHILS # (AUTO) 11.4 K/uL (1.8-8.9); NEUTROPHILS % (AUTO) 76.7 % (43.0-81.0); PLATELET COUNT (AUTO) 323 K/uL (150-450); RED BLOOD CELL COUNT(AUTO) 4.72 MIL/uL (4.5-6.0); WHITE BLOOD COUNT (AUTO) 14.8 K/uL (4.3-11.0)
--- NOTE | 2021-09-22 12:49 | NUR ---
PATIENT REFUSED CT, DR HOWARD AWARE
[2021-09-22 13:11] LABS: BILIRUBIN,DIRECT 0.1 mg/dL (0.0-0.2); BILIRUBIN,TOTAL 0.4 mg/dL (0.2-1.0); POTASSIUM 3.3 mmol/L (3.5-5.1); TOTAL PROTEIN, SERUM 7.8 g/dL (6.4-8.2)
--- NOTE | 2021-09-22 13:27 | NUR ---
Still unable to provide urine at this time
[2021-09-22] MEDS ORDERED: METO-295 PO (14:23)
[2021-09-22 14:37] VITALS: BP 145/88
--- NOTE | 2021-09-22 14:38 | NUR ---
Patient discharged to home in stable condition. Written and verbal after care instructions given. Patient verbalizes understanding of instruction.IV removed. Catheter intact and site benign. Pressure and 4x4 applied to site. No bleeding noted.
== END 2021-09-22 14:38 | disposition home or self-care (01) ==
LOC: ER 12:07
DX: K31.84 Gastroparesis (principal); R11.2 Nausea with vomiting, unspecified; R10.84 Generalized abdominal pain; E10.8 Type 1 diabetes mellitus with unspecified complications; Z90.89 Acquired absence of other organs; Z79.4 Long term (current) use of insulin; Z79.899 Other long term (current) drug therapy
CPT/HCPCS: 36415; 80048; 80076; 82962; 83690; 85025; 96374; 96375; 99284; J1630; J2270; J2765; J3490

== ENCOUNTER 2021-10-12 11:56 | Inpatient (IN) | payer MEDICAID ==
[~2021-10-12] VITALS: Ht 170.2 cm; Wt 77.1 kg
[~2021-10-12 11:56] MED LIST changes: +METO-295 PO
[2021-10-12] MEDS ORDERED: ONDANSETRON HCL/PF 4 MG/2 ML VIAL ONE (12:28)
[2021-10-12] MEDS ORDERED: ONDANSETRON HCL/PF 4 MG/2 ML VIAL IVP ONE (12:30)
[2021-10-12] MEDS ORDERED: IV NS 0.9% 1,000 ML BAG IV ONE (12:30)
[2021-10-12 12:32] LABS: BASOPHILS # (AUTO) 0.1 K/uL (0.0-0.2); BASOPHILS % (AUTO) 0.7 % (0.0-2.0); EOSINOPHILS % (AUTO) 1.5 % (0.0-6.0); HEMATOCRIT 46 % (39-51); LYMPHOCYTES # (AUTO) 3.1 K/uL (0.8-4.8); LYMPHOCYTES % (AUTO) 28.2 % (20.0-44.0); MEAN CORPUSCULAR HGB CONC 33 g/dl (31.0-36.0); MEAN CORPUSCULAR VOLUME 90 fL (80-96); MONOCYTES # (AUTO) 0.8 K/uL (0.1-1.30); MONOCYTES % (AUTO) 7.5 % (2.0-12.0); NEUTROPHILS # (AUTO) 6.8 K/uL (1.8-8.9); NEUTROPHILS % (AUTO) 62.1 % (43.0-81.0); PLATELET COUNT (AUTO) 276 K/uL (150-450); RED BLOOD CELL COUNT(AUTO) 5.06 MIL/uL (4.5-6.0)
[2021-10-12] MEDS ORDERED: HALOPERIDOL LACTATE INJ 5 MG/ML VIAL ONE (12:53)
--- NOTE | 2021-10-12 12:55 | NUR ---
MOVE SHEET SUBMITTED.
[2021-10-12] MEDS ORDERED: HALOPERIDOL LACTATE INJ 5 MG/ML VIAL IV ONE (13:00)
[2021-10-12 13:09] LABS: CALCIUM, SERUM 9.5 mg/dL (8.5-10.1); CREATININE 1.2 mg/dL (0.6-1.3); POTASSIUM 3.6 mmol/L (3.5-5.1)
--- NOTE | 2021-10-12 13:24 | NUR ---
[facility] CALLED CERTIFIED FIRE INVESTIGATOR PAGED.
[2021-10-12] MEDS ORDERED: MORPHINE SULFATE INJ 2 MG/ML DISP.SYRIN IV ONE (13:30)
[2021-10-12 13:58] LABS: ALBUMIN 4.3 g/dL (3.4-5.0); BILIRUBIN,DIRECT 0.1 mg/dL (0.0-0.2); BILIRUBIN,TOTAL 0.3 mg/dL (0.2-1.0); TOTAL PROTEIN, SERUM 8.3 g/dL (6.4-8.2)
[2021-10-12] MEDS ORDERED: MAG HYDROX/AL HYDROX/SIMETH 30 ML UDC PO PRN (14:30)
[2021-10-12] MEDS ORDERED: MORPHINE SULFATE INJ 2 MG/ML DISP.SYRIN IV PRN (14:30)
[2021-10-12] MEDS ORDERED: ACETAMINOPHEN 325 MG TABLET PO PRN (14:30)
[2021-10-12] MEDS ORDERED: LORAZEPAM INJ 2 MG/ML VIAL IV PRN (14:30)
[2021-10-12] MEDS ORDERED: Z GUARD REMEDY 4 OZ OINT TP PRN (14:30)
[2021-10-12] MEDS ORDERED: MAGNESIUM HYDROXIDE 30 ML UDC PO PRN (14:30)
[2021-10-12] MEDS ORDERED: IV 1/2NS 1000 ML 1,000 ML IV PRN (14:30)
[2021-10-12] MEDS ORDERED: INSULIN REGULAR, HUMAN 100 UNIT/ML 3 ML VIAL SQ PRN (14:30)
[2021-10-12] MEDS ORDERED: ZOLPIDEM TARTRATE 5 MG TABLET PO PRN (14:30)
[2021-10-12] MEDS ORDERED: ONDANSETRON HCL/PF 4 MG/2 ML VIAL IVP PRN (14:30)
[2021-10-12] MEDS ORDERED: DEXTROSE 50%-WATER 50 ML DISP.SYRIN IV PRN (14:30)
[2021-10-12] MEDS ORDERED: diphenhydrAMINE HCL 50 MG/ML VIAL IV ONE (17:00)
[2021-10-12] MEDS ORDERED: METOCLOPRAMIDE HCL 10 MG/2 ML VIAL IV SCH (17:00)
[2021-10-12] MEDS ORDERED: diphenhydrAMINE HCL 50 MG/ML VIAL ONE (18:15)
[2021-10-12] MEDS ORDERED: METOCLOPRAMIDE HCL 10 MG/2 ML VIAL ONE (18:15)
[2021-10-12] MEDS: BLOOD SUGAR DIAGNOSTIC 1 EACH STRIP IN SCH ×2 (18:22→19:11)
[2021-10-12] MEDS ORDERED: INSULIN REGULAR, HUMAN 100 UNIT/ML 10 ML VIAL ONE (18:23)
[2021-10-12 19:24] LABS: BILIRUBIN,URINE NEGATIVE (NEGATIVE); COLOR,URINE YELLOW (YELLOW); LEUKOCYTE ESTERASE ,URINE NEGATIVE (NEGATIVE); NITRITE, URINE NEGATIVE (NEGATIVE); PROTEIN,URINE 100 mg/dl (NEGATIVE); UGLUCOSE >=1000 mg/dL (NEGATIVE); UROBILINOGEN,URINE 0.2 EU/dL (0.2)
[2021-10-12 19:44] LABS: BACTERIA,URINE Few /HPF (None Seen); RBC,URINE 51-80 /HPF (0-2); SQUAMOUS EPITHELIAL CELL,UR Few /HPF (None Seen); WBC,URINE 0-2 /HPF (0-3)
--- NOTE | 2021-10-12 20:51 | NUR ---
Patient does not wish to proceed with medical care recommended by Dr. DENNEY . Patient given information related to possible complications, up to and including , which could occur as a result of leaving the hospital at this time. Patient verbalizes understanding of risks involved due to leaving against medical advice. Patient has signed AMA form.
[2021-10-12 20:53] VITALS: BP 138/75
[2021-10-12] MEDS ORDERED: INSULIN GLARGINE, 100 UNIT/ML CARTRIDGE SQ SCH (22:00)
[2021-10-13] MEDS ORDERED: PANTOPRAZOLE 40 MG VIAL IV SCH (09:00)
== END 2021-10-12 21:00 | disposition left against medical advice (07) | DRG 48 ==
LOC: ER 12:03 → TRANSITION 17:09 → MED 20:09
PROVIDERS: ADMIT Nurse Practitioner Family; ATTEND Nurse Practitioner Family
DX: E10.43 Type 1 diabetes mellitus with diabetic autonomic (poly)neuropathy (principal); E10.65 Type 1 diabetes mellitus with hyperglycemia; R11.15 Cyclical vomiting syndrome unrelated to migraine; K31.84 Gastroparesis; Z79.4 Long term (current) use of insulin; Z90.49 Acquired absence of other specified parts of digestive tract; Z79.899 Other long term (current) drug therapy; Z91.19 Patient's noncompliance with other medical treatment and regimen
CPT/HCPCS: 36415; 74018; 80048-TC; 80076-TC; 81001; 82010-TC; 82962-TC; 83690-TC; 85025-TC; C9803; G0378; J1200; J1630; J1815; J2405; J2765; J3490; J7030

== ENCOUNTER 2022-05-22 20:34 | Emergency (ER) | payer MEDICAID ==
[~2022-05-22] VITALS: Ht 172.7 cm; Wt 69.9 kg
[2022-05-22 22:04] VITALS: BP 117/73
[2022-05-22] MEDS ORDERED: ONDANSETRON HCL/PF 4 MG/2 ML VIAL ONE ×2 (22:13→23:44)
[2022-05-22] MEDS ORDERED: IV NS 0.9% 1,000 ML BAG IV ONE (22:30)
[2022-05-22] MEDS ORDERED: ONDANSETRON HCL/PF 4 MG/2 ML VIAL IVP ONE (22:30)
[2022-05-22] MEDS ORDERED: PANTOPRAZOLE 40 MG VIAL IV ONE (22:30)
[2022-05-22] MEDS ORDERED: PANTOPRAZOLE 40 MG VIAL ONE (22:31)
[2022-05-22 22:51] LABS: BASOPHILS # (AUTO) 0.1 K/uL (0.0-0.2); BASOPHILS % (AUTO) 0.5 % (0.0-2.0); EOSINOPHILS % (AUTO) 7.9 % (0.0-6.0); HEMATOCRIT 44 % (39-51); HEMOGLOBIN 14.4 g/dL (13.5-17.5); LYMPHOCYTES # (AUTO) 0.4 K/uL (0.8-4.8); LYMPHOCYTES % (AUTO) 2.7 % (20.0-44.0); MEAN CORPUSCULAR HGB CONC 33 g/dl (31.0-36.0); MEAN CORPUSCULAR VOLUME 89 fL (80-96); MONOCYTES % (AUTO) 0.1 % (2.0-12.0); NEUTROPHILS # (AUTO) 13.9 K/uL (1.8-8.9); NEUTROPHILS % (AUTO) 88.8 % (43.0-81.0); PLATELET COUNT (AUTO) 353 K/uL (150-450); RED BLOOD CELL COUNT(AUTO) 4.92 MIL/uL (4.5-6.0); WHITE BLOOD COUNT (AUTO) 15.6 K/uL (4.3-11.0)
[2022-05-22 23:14] LABS: CALCIUM, SERUM 9.3 mg/dL (8.5-10.1); CREATININE 1.5 mg/dL (0.6-1.3); POTASSIUM 4.2 mmol/L (3.5-5.1)
[2022-05-22 23:20] LABS: ALBUMIN 4.5 g/dL (3.4-5.0); BILIRUBIN,DIRECT 0.2 mg/dL (0.0-0.2); BILIRUBIN,TOTAL 0.7 mg/dL (0.2-1.0); TOTAL PROTEIN, SERUM 8.9 g/dL (6.4-8.2)
[2022-05-22] MEDS ORDERED: LORA-258 PO (23:29)
[2022-05-22] MEDS ORDERED: ONDANSETRON HCL/PF - ER 4 MG/2 ML VIAL IV ONE (23:30)
== END 2022-05-23 01:02 | disposition home or self-care (01) ==
LOC: ER 20:37
DX: E10.43 Type 1 diabetes mellitus with diabetic autonomic (poly)neuropathy (principal); K31.84 Gastroparesis; R11.2 Nausea with vomiting, unspecified; Z79.4 Long term (current) use of insulin; Z90.89 Acquired absence of other organs; Z79.899 Other long term (current) drug therapy
CPT/HCPCS: 99284; 96374; 71045; 96361; 96375; 85025; 80048; 83690; 80076; 36415; J2405; J7030; C9113

== ENCOUNTER 2022-05-23 12:56 | Emergency (ER) | payer MEDICAID ==
[~2022-05-23] VITALS: Ht 180.3 cm; Wt 77.1 kg
--- NOTE | 2022-05-23 13:30 | NUR ---
BIBS C/O ABDOMINAL PAIN, NAUSEA AND VOMITING SINCE YESTERDAY. AMBULATORY, PLACED ON BED, BREATHING UNLABORED.
[2022-05-23] MEDS ORDERED: ONDANSETRON HCL/PF 4 MG/2 ML VIAL ONE (13:53)
[2022-05-23] MEDS ORDERED: ONDANSETRON HCL/PF 4 MG/2 ML VIAL IVP ONE (14:00)
[2022-05-23] MEDS ORDERED: IV NS 0.9% 1,000 ML BAG IV ONE (14:00)
--- NOTE | 2022-05-23 14:04 | NUR ---
Patient does not wish to proceed with medical care recommended by . Patient verbalizes understanding of risks involved due to leaving against medical advice. Patient has signed AMA form.
[2022-05-23 14:07] VITALS: BP 156/115
== END 2022-05-23 14:04 | disposition left against medical advice (07) ==
LOC: ER 12:56
DX: R11.2 Nausea with vomiting, unspecified (principal); E10.43 Type 1 diabetes mellitus with diabetic autonomic (poly)neuropathy; K31.84 Gastroparesis; Z79.4 Long term (current) use of insulin
CPT/HCPCS: J2405

== ENCOUNTER 2022-05-25 23:11 | Emergency (ER) | payer MEDICAID ==
--- NOTE | 2022-05-26 | NUR ---
CALLED TO TRIAGE NO ANSWER
--- NOTE | 2022-05-26 00:30 | NUR ---
CALLED TO TRIAGE NO ANSWER
== END 2022-05-26 00:51 | disposition left against medical advice (07) ==
LOC: ER 23:12
DX: Z53.21 Procedure and treatment not carried out due to patient leaving prior to being seen by health care provider (principal)

== ENCOUNTER 2022-07-02 16:13 | Emergency (ER) | payer MEDICAID ==
[~2022-07-02] VITALS: Ht 180.3 cm; Wt 77.1 kg
--- NOTE | 2022-07-02 16:25 | NUR ---
BIBS FOR MED REFILL; STATES "I CAN'T GET IN TOUCH W/ PCP; NO INSULIN NOR SYRINGES AT THE MOMENT".
--- NOTE | 2022-07-02 17:05 | NUR ---
SEEN BY MD AT BEDSIDE
--- NOTE | 2022-07-02 17:37 | NUR ---
acchucheck bs 78mg/dl
--- NOTE | 2022-07-02 18:07 | NUR ---
SPOKE W/ [facility] PHARMACIST, OKAY FOR PT TO [facility] DIRECTLY; DR VAZQUEZ AWARE.
[2022-07-02 18:13] VITALS: BP 120/79
--- NOTE | 2022-07-02 18:13 | NUR ---
Patient discharged to home in stable condition. Written and verbal after care instructions given. Patient verbalizes understanding of instruction.
== END 2022-07-02 18:13 | disposition home or self-care (01) ==
LOC: ER 16:14
DX: E11.43 Type 2 diabetes mellitus with diabetic autonomic (poly)neuropathy (principal); K31.84 Gastroparesis; Z76.0 Encounter for issue of repeat prescription; Z79.899 Other long term (current) drug therapy; Z79.4 Long term (current) use of insulin
CPT/HCPCS: 82962-TC

== ENCOUNTER 2022-07-22 08:09 | Emergency (ER) | payer MEDICAID ==
[~2022-07-22] VITALS: Ht 180.3 cm; Wt 77.1 kg
--- NOTE | 2022-07-22 08:15 | NUR ---
bibself for abdominal pain 03/13 , + nausea. states that he went to [employer] but AMA for work.
--- NOTE | 2022-07-22 08:29 | NUR ---
at bedside for eval
[2022-07-22] MEDS ORDERED: ONDANSETRON HCL/PF 4 MG/2 ML VIAL IVP ONE (08:30)
[2022-07-22] MEDS ORDERED: IV NS 0.9% 1,000 ML BAG IV ONE (08:30)
[2022-07-22] MEDS ORDERED: LORAZEPAM INJ 2 MG/ML VIAL IV ONE (08:30)
[2022-07-22] MEDS ORDERED: ONDANSETRON HCL/PF 4 MG/2 ML VIAL ONE (08:36)
[2022-07-22] MEDS ORDERED: LORAZEPAM INJ 2 MG/ML VIAL ONE (08:36)
[2022-07-22 08:53] LABS: BASOPHILS % (AUTO) 0.4 % (0.0-2.0); EOSINOPHILS % (AUTO) 1.7 % (0.0-6.0); HEMATOCRIT 46 % (39-51); HEMOGLOBIN 15.2 g/dL (13.5-17.5); LYMPHOCYTES # (AUTO) 2.7 K/uL (0.8-4.8); MEAN CORPUSCULAR HGB CONC 33 g/dl (31.0-36.0); MEAN CORPUSCULAR VOLUME 88 fL (80-96); MONOCYTES # (AUTO) 0.9 K/uL (0.1-1.30); MONOCYTES % (AUTO) 9.8 % (2.0-12.0); NEUTROPHILS # (AUTO) 5.6 K/uL (1.8-8.9); NEUTROPHILS % (AUTO) 59.1 % (43.0-81.0); PLATELET COUNT (AUTO) 356 K/uL (150-450); RED BLOOD CELL COUNT(AUTO) 5.21 MIL/uL (4.5-6.0); WHITE BLOOD COUNT (AUTO) 9.5 K/uL (4.3-11.0)
--- NOTE | 2022-07-22 08:59 | NUR ---
medicated as order
[2022-07-22] MEDS ORDERED: diphenhydrAMINE HCL 50 MG/ML VIAL IV ONE (09:00)
[2022-07-22] MEDS ORDERED: diphenhydrAMINE HCL 50 MG/ML VIAL ONE (09:04)
[2022-07-22 09:13] LABS: CALCIUM, SERUM 9.7 mg/dL (8.5-10.1); CREATININE 1.3 mg/dL (0.6-1.3); POTASSIUM 3.5 mmol/L (3.5-5.1)
[2022-07-22 09:16] LABS: ALBUMIN 4.3 g/dL (3.4-5.0); BILIRUBIN,DIRECT 0.2 mg/dL (0.0-0.2); BILIRUBIN,TOTAL 0.6 mg/dL (0.2-1.0); TOTAL PROTEIN, SERUM 8.8 g/dL (6.4-8.2)
[2022-07-22] MEDS ORDERED: METO-295 PO (10:08)
--- NOTE | 2022-07-22 10:54 | NUR ---
IV removed. Catheter intact and site benign. Pressure and 4x4 applied to site. No bleeding noted.
[2022-07-22 11:01] VITALS: BP 165/98
== END 2022-07-22 11:05 | disposition home or self-care (01) ==
LOC: ER 08:20
DX: E11.43 Type 2 diabetes mellitus with diabetic autonomic (poly)neuropathy (principal); K31.84 Gastroparesis; Z79.4 Long term (current) use of insulin; Z79.899 Other long term (current) drug therapy
CPT/HCPCS: 99284; 96374; 96375; 96361; 85025; 80048; 83690; 80076; 36415; J2060; J1200; J2405; J7030

== ENCOUNTER 2022-08-21 01:27 | Emergency (ER) | payer MEDICAID ==
[~2022-08-21] VITALS: Ht 180.3 cm; Wt 77.1 kg
[2022-08-21 01:48] VITALS: BP 125/88
--- NOTE | 2022-08-21 01:48 | NUR ---
bibself from home C/o out of insulin pen and needle x today, needs Rx
--- NOTE | 2022-08-21 02:09 | NUR ---
Patient discharged to home in stable condition. Written and verbal after care instructions given. Patient verbalizes understanding of instruction.
== END 2022-08-21 02:11 | disposition home or self-care (01) ==
LOC: ER 01:29
DX: E10.43 Type 1 diabetes mellitus with diabetic autonomic (poly)neuropathy (principal); K31.84 Gastroparesis; Z79.899 Other long term (current) drug therapy; Z79.4 Long term (current) use of insulin

== ENCOUNTER 2022-12-21 22:59 | Emergency (ER) | payer MEDICAID ==
[~2022-12-21] VITALS: Ht 177.8 cm; Wt 78.5 kg
[~2022-12-21 22:59] MED LIST changes: -INSU100I26 SQ; +INSU100V7 SQ; -LORA-258 PO; -METO-295 PO; -PANT40TA49 PO; +Zantac PO
--- NOTE | 2022-12-21 23:41 | NUR ---
BIBGF CC OF NAUSEA/VOMITING(SEV EPISODES) DIARRHEA 4X TODAY AN HOUR AGO. BS 156 PATCH SETTER INJECTED 8U INSULIN. PT AAOX4, IN NAD, AMBULATORY. PLACED IN BED, VITALS CHECKED. AWAITING MD RIZVI.
[2022-12-21] MEDS ORDERED: METOCLOPRAMIDE HCL 10 MG/2 ML VIAL ONE (23:48)
[2022-12-21] MEDS ORDERED: MORPHINE SULFATE INJ 4 MG/ML DISP.SYRIN ONE (23:49)
--- NOTE | 2022-12-21 23:58 | NUR ---
20GA TO RIGHT HAND ESTABLISHED; BLOOD WORK COLLECTED, GIVEN TO LINK FABRIC MACHINE OPERATOR AT BEDSIDE
[2022-12-22] MEDS ORDERED: METOCLOPRAMIDE HCL 10 MG/2 ML VIAL IV ONE
[2022-12-22] MEDS ORDERED: IV NS 0.9% 1,000 ML BAG IV ONE
[2022-12-22] MEDS ORDERED: MORPHINE SULFATE INJ 2 MG/ML DISP.SYRIN IV ONE
--- NOTE | 2022-12-22 00:06 | NUR ---
PT TAKEN TO CT W/ TECH
--- NOTE | 2022-12-22 00:16 | NUR ---
PT RETURNED FROM CT
--- NOTE | 2022-12-22 00:26 | NUR ---
URINE COLLECTED, SENT TO LAB
--- NOTE | 2022-12-22 00:28 | NUR ---
URINE SPECIMEN COLLECTED AND SENT TO LAB.
[2022-12-22 00:48] LABS: POTASSIUM 4.3 mmol/L (3.5-5.1)
[2022-12-22 00:49] LABS: BILIRUBIN,DIRECT 0.1 mg/dL (0.0-0.2); BILIRUBIN,TOTAL 0.3 mg/dL (0.2-1.0); CALCIUM, SERUM 9.4 mg/dL (8.5-10.1); CREATININE 1.6 mg/dL (0.6-1.3)
[2022-12-22 00:50] LABS: ALBUMIN 4.2 g/dL (3.4-5.0); TOTAL PROTEIN, SERUM 8.5 g/dL (6.4-8.2)
[2022-12-22 01:10] LABS: BASOPHILS # (AUTO) 0.1 K/uL (0.0-0.2); BASOPHILS % (AUTO) 0.4 % (0.0-2.0); EOSINOPHILS % (AUTO) 0.9 % (0.0-6.0); HEMATOCRIT 39 % (39-51); HEMOGLOBIN 12.4 g/dL (13.5-17.5); LYMPHOCYTES # (AUTO) 3.1 K/uL (0.8-4.8); LYMPHOCYTES % (AUTO) 19.2 % (20.0-44.0); MEAN CORPUSCULAR HGB CONC 32 g/dl (31.0-36.0); MEAN CORPUSCULAR VOLUME 86 fL (80-96); MONOCYTES # (AUTO) 1.6 K/uL (0.1-1.30); MONOCYTES % (AUTO) 9.9 % (2.0-12.0); NEUTROPHILS # (AUTO) 11.1 K/uL (1.8-8.9); NEUTROPHILS % (AUTO) 69.6 % (43.0-81.0); PLATELET COUNT (AUTO) 322 K/uL (150-450); RED BLOOD CELL COUNT(AUTO) 4.51 MIL/uL (4.5-6.0)
[2022-12-22 01:32] LABS: BILIRUBIN,URINE NEGATIVE (NEGATIVE); COLOR,URINE YELLOW (YELLOW); LEUKOCYTE ESTERASE ,URINE NEGATIVE (NEGATIVE); NITRITE, URINE NEGATIVE (NEGATIVE); PH,URINE 5.5 (5.0-8.0); PROTEIN,URINE 2+ mg/dl (NEGATIVE); UGLUCOSE NEGATIVE (NEGATIVE); UROBILINOGEN,URINE 0.2 EU/dL (0.2)
[2022-12-22] MEDS ORDERED: ONDANSETRON HCL/PF 4 MG/2 ML VIAL ONE (01:40)
[2022-12-22 01:54] LABS: BACTERIA,URINE Few /HPF (None Seen); MUCUS,URINE Moderate /LPF (None Seen); SQUAMOUS EPITHELIAL CELL,UR None Seen /HPF (None Seen); WBC,URINE 0-2 /HPF (0-3)
[2022-12-22] MEDS ORDERED: METO-295 PO (01:58)
[2022-12-22] MEDS ORDERED: ONDANSETRON HCL/PF 4 MG/2 ML VIAL IV ONE (02:00)
[2022-12-22 02:12] VITALS: BP 149/99; TEMP 98; O2SAT 96
[2022-12-23] MEDS ORDERED: METO-295 PO (13:52)
[2022-12-23] MEDS ORDERED: ONDA4TAB11 PO (13:52)
== END 2022-12-22 02:20 | disposition home or self-care (01) ==
LOC: ER 23:03
DX: E11.43 Type 2 diabetes mellitus with diabetic autonomic (poly)neuropathy (principal); K31.84 Gastroparesis; Z90.49 Acquired absence of other specified parts of digestive tract; Z79.899 Other long term (current) drug therapy; Z88.1 Allergy status to other antibiotic agents
CPT/HCPCS: 99285; 74176; 36415; 82962; 96374; 96375; 96361; 85025; 80048; 83690; 80076; 81001; 85730; J2270; J2765; J2405; J7030

== ENCOUNTER 2022-12-23 11:26 | Emergency (ER) | payer MEDICAID ==
[~2022-12-23] VITALS: Ht 177.8 cm; Wt 79.4 kg
[~2022-12-23 11:26] MED LIST changes: +METO-295 PO
--- NOTE | 2022-12-23 11:40 | NUR ---
BIBS C/O NAUSEA AND VOMITING 2 HRS. AMBULATORY, PLACED IN BED, AAOX4.
--- NOTE | 2022-12-23 11:41 | NUR ---
BLOOD DRAWN AND SENT TO LAB
[2022-12-23] MEDS ORDERED: IV NS 0.9% 1,000 ML BAG IV ONE (12:00)
[2022-12-23] MEDS ORDERED: METOCLOPRAMIDE HCL 10 MG/2 ML VIAL IV ONE (12:00)
[2022-12-23] MEDS ORDERED: METOCLOPRAMIDE HCL 10 MG/2 ML VIAL ONE (12:22)
[2022-12-23 12:30] LABS: BASOPHILS % (AUTO) 0.2 % (0.0-2.0); EOSINOPHILS % (AUTO) 0.2 % (0.0-6.0); HEMATOCRIT 44 % (39-51); LYMPHOCYTES # (AUTO) 1.8 K/uL (0.8-4.8); LYMPHOCYTES % (AUTO) 12.4 % (20.0-44.0); MEAN CORPUSCULAR HGB CONC 32 g/dl (31.0-36.0); MEAN CORPUSCULAR VOLUME 85 fL (80-96); MONOCYTES # (AUTO) 0.7 K/uL (0.1-1.30); MONOCYTES % (AUTO) 4.7 % (2.0-12.0); NEUTROPHILS # (AUTO) 12.3 K/uL (1.8-8.9); NEUTROPHILS % (AUTO) 82.5 % (43.0-81.0); PLATELET COUNT (AUTO) 374 K/uL (150-450); RED BLOOD CELL COUNT(AUTO) 5.14 MIL/uL (4.5-6.0); WHITE BLOOD COUNT (AUTO) 14.9 K/uL (4.3-11.0)
[2022-12-23 12:56] LABS: CALCIUM, SERUM 9.7 mg/dL (8.5-10.1); POTASSIUM 3.5 mmol/L (3.5-5.1)
[2022-12-23 13:02] LABS: BILIRUBIN,DIRECT 0.1 mg/dL (0.0-0.2); BILIRUBIN,TOTAL 0.6 mg/dL (0.2-1.0); TOTAL PROTEIN, SERUM 8.2 g/dL (6.4-8.2)
[2022-12-23] MEDS ORDERED: DEXTROSE 50%-WATER 50 ML DISP.SYRIN ONE (13:11)
--- NOTE | 2022-12-23 13:14 | NUR ---
GLU- 44 DEXTROSE 50% 50ML IV GIVEN ORDERED.
[2022-12-23] MEDS ORDERED: DEXTROSE 50%-WATER 50 ML DISP.SYRIN IVP ONE (13:30)
[2022-12-23] MEDS ORDERED: IV D5/0.45 NACL 1,000 ML IV ONE (13:30)
--- NOTE | 2022-12-23 13:45 | NUR ---
RECHECKED GLU- 275 IV D5 1/2 NS INF. D/C ORDERED BY MD
[2022-12-23] MEDS ORDERED: METO-295 PO (13:52)
[2022-12-23] MEDS ORDERED: ONDA4TAB11 PO (13:52)
--- NOTE | 2022-12-23 13:58 | NUR ---
IV removed. Catheter intact and site benign. Pressure and 4x4 applied to site. No bleeding noted.Patient discharged to home in stable condition. Written and verbal after care instructions given. Patient verbalizes understanding of instruction.
[2022-12-23 13:59] VITALS: BP 125/70; TEMP 98.3; O2SAT 98
== END 2022-12-23 13:58 | disposition home or self-care (01) ==
LOC: ER 11:36
DX: E10.43 Type 1 diabetes mellitus with diabetic autonomic (poly)neuropathy (principal); K31.84 Gastroparesis; Z90.89 Acquired absence of other organs; Z88.8 Allergy status to other drugs, medicaments and biological substances
CPT/HCPCS: 99284; 96374; 96361 ×2; 96375; 85025; 80048; 83690; 80076; 36415; 82962 ×2; J2765; J3490; J7030; A4223

== ENCOUNTER 2023-01-06 13:11 | Inpatient (IN) | payer MEDICAID ==
[~2023-01-06] VITALS: Ht 180.3 cm; Wt 79.4 kg
[~2023-01-06 13:11] MED LIST changes: +ONDA4TAB11 PO
[2023-01-06] MEDS ORDERED: FAMOTIDINE/PF INJ 20 MG/2 ML VIAL IV ONE ×2 (14:30→14:35)
[2023-01-06] MEDS ORDERED: LORAZEPAM INJ 2 MG/ML VIAL IV ONE ×2 (14:30→16:00)
[2023-01-06] MEDS: PROMETHAZINE HCL 25 MG TABLET PO SCH ×2 (14:35→14:53)
[2023-01-06] MEDS ORDERED: LORAZEPAM INJ 2 MG/ML VIAL ONE ×2 (14:37→15:53)
[2023-01-06 14:48] LABS: BASOPHILS % (AUTO) 0.4 % (0.0-2.0); EOSINOPHILS % (AUTO) 0.1 % (0.0-6.0); HEMATOCRIT 43 % (39-51); HEMOGLOBIN 13.8 g/dL (13.5-17.5); LYMPHOCYTES # (AUTO) 0.9 K/uL (0.8-4.8); LYMPHOCYTES % (AUTO) 7.6 % (20.0-44.0); MEAN CORPUSCULAR HEMOGLOBIN 28 PG (26.0-33.0); MEAN CORPUSCULAR HGB CONC 32 g/dl (31.0-36.0); MEAN CORPUSCULAR VOLUME 86 fL (80-96); MONOCYTES # (AUTO) 0.3 K/uL (0.1-1.30); MONOCYTES % (AUTO) 2.5 % (2.0-12.0); NEUTROPHILS # (AUTO) 11.1 K/uL (1.8-8.9); NEUTROPHILS % (AUTO) 89.4 % (43.0-81.0); PLATELET COUNT (AUTO) 408 K/uL (150-450); RED BLOOD CELL COUNT(AUTO) 4.99 MIL/uL (4.5-6.0); RED CELL DISTRIBUTION WIDTH 15.3 % (11.5-15.0); WHITE BLOOD COUNT (AUTO) 12.4 K/uL (4.3-11.0)
[2023-01-06 15:06] LABS: INR 1.05 (0.91-1.10); PARTIAL THROMBOPLASTIN TIME 24.5 SEC (24.3-34.3)
[2023-01-06 15:07] LABS: CALCIUM, SERUM 10.3 mg/dL (8.5-10.1); CREATININE 1.3 mg/dL (0.6-1.3); POTASSIUM 4.1 mmol/L (3.5-5.1)
[2023-01-06 15:14] LABS: ALBUMIN 4.6 g/dL (3.4-5.0); BILIRUBIN,DIRECT 0.1 mg/dL (0.0-0.2); BILIRUBIN,TOTAL 0.7 mg/dL (0.2-1.0); TOTAL PROTEIN, SERUM 9.5 g/dL (6.4-8.2)
[2023-01-06] MEDS ORDERED: IV NS 0.9% 1,000 ML BAG IV ONE (15:30)
[2023-01-06 16:48] LABS: APPEARANCE,URINE CLEAR (CLEAR); BILIRUBIN,URINE NEGATIVE (NEGATIVE); BLOOD, URINE 1+ Ery/uL (NEGATIVE); COLOR,URINE YELLOW (YELLOW); KETONES,URINE 1+ mg/dL (NEGATIVE); LEUKOCYTE ESTERASE ,URINE NEGATIVE (NEGATIVE); NITRITE, URINE NEGATIVE (NEGATIVE); PROTEIN,URINE 3+ mg/dl (NEGATIVE); UGLUCOSE 3+ mg/dL (NEGATIVE); UROBILINOGEN,URINE 0.2 EU/dL (0.2)
[2023-01-06 16:53] LABS: ADD URINE CULTURE NO; BACTERIA,URINE None seen /HPF (None Seen); SQUAMOUS EPITHELIAL CELL,UR 0-2 /HPF (None Seen); WBC,URINE 0-2 /HPF (0-3)
[2023-01-06] MEDS ORDERED: INSULIN REGULAR, HUMAN 100 UNIT/ML 10 ML VIAL SQ ONE (17:30)
[2023-01-06] MEDS ORDERED: INSULIN REGULAR, HUMAN 100 UNIT/ML 10 ML VIAL ONE (17:35)
[2023-01-06] MEDS ORDERED: METO-295 PO (19:05)
[2023-01-06 21:33] LABS: AMPHETAMINE, URINE NEGATIVE (NEGATIVE); BARBITURATE, URINE NEGATIVE (NEGATIVE); BENZODIAZEPINE, URINE NEGATIVE (NEGATIVE); COCCAINE, URINE NEGATIVE (NEGATIVE); OPIATE, URINE NEGATIVE (NEGATIVE); PHENCYCLIDINE SCREEN,URINE NEGATIVE (NEGATIVE)
[2023-01-06 21:34] VITALS: BP 164/104; TEMP 97.8; O2SAT 100
[2023-01-06 21:35] LABS: CANNABINOID, URINE POSITIVE (NEGATIVE)
[2023-01-06] MEDS ORDERED: ONDANSETRON HCL/PF 4 MG/2 ML VIAL IVP PRN (22:30)
[2023-01-06] MEDS ORDERED: MAGNESIUM HYDROXIDE 30 ML UDC PO PRN (22:30)
[2023-01-06] MEDS ORDERED: MAG HYDROX/AL HYDROX/SIMETH 30 ML UDC PO PRN (22:30)
[2023-01-06] MEDS ORDERED: METOCLOPRAMIDE HCL 10 MG/2 ML VIAL IV PRN (22:30)
[2023-01-06] MEDS ORDERED: IV NS 0.9% 1,000 ML IV PRN (22:30)
[2023-01-06] MEDS ORDERED: INSULIN REGULAR, HUMAN 100 UNIT/ML 3 ML VIAL SQ PRN (22:30)
[2023-01-06] MEDS ORDERED: Z GUARD REMEDY 4 OZ OINT TP PRN (22:30)
[2023-01-06] MEDS ORDERED: ZOLPIDEM TARTRATE 5 MG TABLET PO PRN (22:30)
[2023-01-06] MEDS ORDERED: DEXTROSE 50%-WATER 50 ML DISP.SYRIN IV PRN (22:30)
[2023-01-06] MEDS ORDERED: ACETAMINOPHEN 325 MG TABLET PO PRN (22:30)
[2023-01-07] VITALS: BP 117/72; TEMP 97.8; O2SAT 100; O2SAT 99
[2023-01-07] MEDS ORDERED: BLOOD SUGAR DIAGNOSTIC 1 EACH STRIP IN SCH (07:30)
[2023-01-07] MEDS ORDERED: PANTOPRAZOLE 40 MG VIAL IV SCH (09:00)
== END 2023-01-07 03:30 | disposition left against medical advice (07) | DRG 48 ==
LOC: ER 13:12 → TELE 21:28 → MED 22:40
PROVIDERS: ADMIT Nurse Practitioner Acute Care; ATTEND Nurse Practitioner Acute Care
DX: E11.43 Type 2 diabetes mellitus with diabetic autonomic (poly)neuropathy (principal); F12.10 Cannabis abuse, uncomplicated; R11.2 Nausea with vomiting, unspecified; K31.84 Gastroparesis; Z79.4 Long term (current) use of insulin
CPT/HCPCS: 36415; 80048-TC; 80076-TC; 81001; 82962-TC; 83690-TC; 85025-TC; 85730-TC; A4223; G0378; J1815; J2060; J3490; J7030; Q0169

== ENCOUNTER 2023-01-17 18:42 | Inpatient (IN) | payer MEDICAID ==
[~2023-01-17] VITALS: Ht 180.3 cm; Wt 76.2 kg
[2023-01-17] MEDS ORDERED: MORPHINE SULFATE INJ 2 MG/ML DISP.SYRIN IV ONE (19:30)
[2023-01-17] MEDS ORDERED: IV NS 0.9% 1,000 ML BAG IV ONE ×2 (19:30→21:00)
[2023-01-17] MEDS ORDERED: FAMOTIDINE/PF INJ 20 MG/2 ML VIAL IV ONE ×2 (19:30→19:50)
[2023-01-17] MEDS ORDERED: ONDANSETRON HCL/PF - ER 4 MG/2 ML VIAL IV ONE (19:30)
[2023-01-17] MEDS ORDERED: MORPHINE SULFATE INJ 2 MG/ML DISP.SYRIN ONE (19:50)
[2023-01-17] MEDS ORDERED: ONDANSETRON HCL/PF 4 MG/2 ML VIAL ONE (19:50)
[2023-01-17 19:52] LABS: BASOPHILS # (AUTO) 0.1 K/uL (0.0-0.2); BASOPHILS % (AUTO) 1.3 % (0.0-2.0); HEMATOCRIT 42 % (39-51); HEMOGLOBIN 13.5 g/dL (13.5-17.5); LYMPHOCYTES # (AUTO) 0.8 K/uL (0.8-4.8); LYMPHOCYTES % (AUTO) 7.4 % (20.0-44.0); MEAN CORPUSCULAR HEMOGLOBIN 27 PG (26.0-33.0); MEAN CORPUSCULAR HGB CONC 32 g/dl (31.0-36.0); MEAN CORPUSCULAR VOLUME 85 fL (80-96); MONOCYTES # (AUTO) 0.3 K/uL (0.1-1.30); MONOCYTES % (AUTO) 2.5 % (2.0-12.0); NEUTROPHILS # (AUTO) 9.8 K/uL (1.8-8.9); NEUTROPHILS % (AUTO) 88.8 % (43.0-81.0); PLATELET COUNT (AUTO) 380 K/uL (150-450); RED BLOOD CELL COUNT(AUTO) 4.94 MIL/uL (4.5-6.0); RED CELL DISTRIBUTION WIDTH 15.5 % (11.5-15.0)
[2023-01-17 20:05] LABS: CALCIUM, SERUM 10.1 mg/dL (8.5-10.1); CARBON DIOXIDE 24 mmol/L (21-32); CHLORIDE 102 mmol/L (98-107); CREATININE 1.4 mg/dL (0.6-1.3); GLUCOSE 238 mg/dL (74-106); POTASSIUM 3.9 mmol/L (3.5-5.1); SODIUM SERUM 141 mmol/L (136-145); UREA NITROGEN, BLOOD 12 mg/dL (7-18)
[2023-01-17 20:14] LABS: ALANINE AMINOTRANSFERASE 25 U/L (12-78); ALBUMIN 4.7 g/dL (3.4-5.0); ALKALINE PHOSPHATASE 119 U/L (46-116); ASPARTATE AMINOTRANSFERASE 27 U/L (15-37); BILIRUBIN,DIRECT 0.1 mg/dL (0.0-0.2); BILIRUBIN,TOTAL 0.7 mg/dL (0.2-1.0); LIPASE 16 U/L (73-393); TOTAL PROTEIN, SERUM 9.1 g/dL (6.4-8.2)
[2023-01-17] MEDS ORDERED: METOCLOPRAMIDE HCL 10 MG/2 ML VIAL ONE (20:39)
[2023-01-17] MEDS ORDERED: LORAZEPAM INJ 2 MG/ML VIAL ONE (20:50)
[2023-01-17] MEDS ORDERED: LORAZEPAM INJ 2 MG/ML VIAL IV ONE (21:00)
[2023-01-17] MEDS ORDERED: METOCLOPRAMIDE HCL 10 MG/2 ML VIAL IV ONE (21:00)
[2023-01-17] MEDS ORDERED: IV NS 0.9% 1,000 ML IV PRN (22:30)
[2023-01-17] MEDS ORDERED: INSULIN REGULAR, HUMAN 100 UNIT/ML 3 ML VIAL SQ PRN (22:30)
[2023-01-17] MEDS ORDERED: DEXTROSE 50%-WATER 50 ML DISP.SYRIN IV PRN (22:30)
[2023-01-17] MEDS ORDERED: ONDANSETRON HCL/PF 4 MG/2 ML VIAL IVP PRN (22:30)
[2023-01-17] MEDS ORDERED: ACETAMINOPHEN 325 MG TABLET PO PRN (22:30)
[2023-01-17 23:19] VITALS: BP 160/94; TEMP 98.5; O2SAT 99
[2023-01-17] MEDS: METOCLOPRAMIDE HCL 10 MG/2 ML VIAL IV SCH (23:25)
[2023-01-17] MEDS: MORPHINE SULFATE INJ 2 MG/ML DISP.SYRIN IV PRN (23:41)
[2023-01-17] MEDS: BLOOD SUGAR DIAGNOSTIC 1 EACH STRIP IN SCH (23:51)
[2023-01-18 04:00] VITALS: BP 112/68; TEMP 98.6; O2SAT 99
[2023-01-18] MEDS: MORPHINE SULFATE INJ 2 MG/ML DISP.SYRIN IV PRN (04:18)
[2023-01-18 05:39] LABS: BASOPHILS % (AUTO) 0.4 % (0.0-2.0); EOSINOPHILS % (AUTO) 0.1 % (0.0-6.0); HEMATOCRIT 34 % (39-51); HEMOGLOBIN 11.2 g/dL (13.5-17.5); LYMPHOCYTES # (AUTO) 2.8 K/uL (0.8-4.8); MEAN CORPUSCULAR HEMOGLOBIN 28 PG (26.0-33.0); MEAN CORPUSCULAR HGB CONC 33 g/dl (31.0-36.0); MEAN CORPUSCULAR VOLUME 85 fL (80-96); MONOCYTES # (AUTO) 1.3 K/uL (0.1-1.30); MONOCYTES % (AUTO) 10.5 % (2.0-12.0); NEUTROPHILS # (AUTO) 8.4 K/uL (1.8-8.9); PLATELET COUNT (AUTO) 300 K/uL (150-450); RED BLOOD CELL COUNT(AUTO) 4.05 MIL/uL (4.5-6.0); RED CELL DISTRIBUTION WIDTH 15.9 % (11.5-15.0); WHITE BLOOD COUNT (AUTO) 12.5 K/uL (4.3-11.0)
[2023-01-18 05:53] LABS: CALCIUM, SERUM 8.5 mg/dL (8.5-10.1); CREATININE 1.2 mg/dL (0.6-1.3); MAGNESIUM 1.7 mg/dL (1.8-2.4); POTASSIUM 3.5 mmol/L (3.5-5.1)
[2023-01-18] MEDS: METOCLOPRAMIDE HCL 10 MG/2 ML VIAL IV SCH (05:58)
[2023-01-18] MEDS: BLOOD SUGAR DIAGNOSTIC 1 EACH STRIP IN SCH (07:44)
[2023-01-18] MEDS ORDERED: BLOO-668 IN (08:39)
[2023-01-18] MEDS ORDERED: INSU100V7 SQ (08:39)
[2023-01-18] MEDS ORDERED: MAGNESIUM OXIDE 400 MG TABLET PO ONE (09:00)
[2023-01-18] MEDS ORDERED: PANTOPRAZOLE 40 MG VIAL IV SCH (09:00)
== END 2023-01-18 10:17 | disposition left against medical advice (07) | DRG 48 ==
LOC: ER 19:07 → MEDSG1 22:32
PROVIDERS: ADMIT Nurse Practitioner Acute Care; ATTEND Nurse Practitioner Acute Care
DX: E11.43 Type 2 diabetes mellitus with diabetic autonomic (poly)neuropathy (principal); N17.0 Acute kidney failure with tubular necrosis; K31.84 Gastroparesis; Z90.49 Acquired absence of other specified parts of digestive tract; E11.65 Type 2 diabetes mellitus with hyperglycemia; Z79.4 Long term (current) use of insulin; Z88.8 Allergy status to other drugs, medicaments and biological substances; F12.188 Cannabis abuse with other cannabis-induced disorder
CPT/HCPCS: 36415; 71045-TC; 80048-TC; 80076-TC; 82962-TC; 83690-TC; 83735-TC; 84100-TC; 84484-TC; 85025-TC; 87081-TC; A4623; C9113; G0378; J1815; J2060; J2270; J2405; J2765; J3490; J7030

== ENCOUNTER 2023-02-08 11:43 | Emergency (ER) | payer MEDICAID ==
[~2023-02-08] VITALS: Ht 175.3 cm; Wt 77.1 kg
[~2023-02-08 11:43] MED LIST changes: +BLOO-668 IN; -METO-295 PO; -ONDA4TAB11 PO; -Zantac PO
[2023-02-08] MEDS ORDERED: HYDROMORPHONE INJ 2 MG/ML DISP.SYRIN IV ONE (12:30)
[2023-02-08] MEDS ORDERED: KETOROLAC TROMETHAMINE INJ 30 MG/ML VIAL IV ONE (12:30)
[2023-02-08] MEDS ORDERED: IV NS 0.9% 1,000 ML BAG IV ONE (12:30)
[2023-02-08] MEDS ORDERED: ONDANSETRON HCL/PF 4 MG/2 ML VIAL IVP ONE (12:30)
[2023-02-08] MEDS ORDERED: KETOROLAC TROMETHAMINE INJ 30 MG/ML VIAL ONE (12:43)
[2023-02-08] MEDS ORDERED: ONDANSETRON HCL/PF 4 MG/2 ML VIAL ONE (12:43)
[2023-02-08] MEDS ORDERED: HYDROMORPHONE 1 MG/1 ML DISP.SYRIN ONE (12:43)
[2023-02-08 12:51] LABS: BASOPHILS # (AUTO) 0.1 K/uL (0.0-0.2); BASOPHILS % (AUTO) 0.7 % (0.0-2.0); EOSINOPHILS # (AUTO) 0.1 K/uL (0.0-0.7); EOSINOPHILS % (AUTO) 0.9 % (0.0-6.0); HEMATOCRIT 40 % (39-51); HEMOGLOBIN 13.1 g/dL (13.5-17.5); LYMPHOCYTES # (AUTO) 2.3 K/uL (0.8-4.8); LYMPHOCYTES % (AUTO) 23.1 % (20.0-44.0); MEAN CORPUSCULAR HEMOGLOBIN 28 PG (26.0-33.0); MEAN CORPUSCULAR HGB CONC 33 g/dl (31.0-36.0); MEAN CORPUSCULAR VOLUME 87 fL (80-96); MONOCYTES # (AUTO) 0.5 K/uL (0.1-1.30); MONOCYTES % (AUTO) 4.6 % (2.0-12.0); NEUTROPHILS # (AUTO) 7.1 K/uL (1.8-8.9); NEUTROPHILS % (AUTO) 70.7 % (43.0-81.0); PLATELET COUNT (AUTO) 374 K/uL (150-450); RED BLOOD CELL COUNT(AUTO) 4.61 MIL/uL (4.5-6.0); RED CELL DISTRIBUTION WIDTH 16.1 % (11.5-15.0)
[2023-02-08 13:08] LABS: ALBUMIN 4.2 g/dL (3.4-5.0); BILIRUBIN,DIRECT 0.1 mg/dL (0.0-0.2); BILIRUBIN,TOTAL 0.5 mg/dL (0.2-1.0); CALCIUM, SERUM 9.6 mg/dL (8.5-10.1); CREATININE 1.2 mg/dL (0.6-1.3); POTASSIUM 3.8 mmol/L (3.5-5.1); TOTAL PROTEIN, SERUM 8.7 g/dL (6.4-8.2)
[2023-02-08] MEDS ORDERED: OMEP40CA21 PO (13:43)
[2023-02-08] MEDS ORDERED: ONDA4TAB5 PO (13:43)
[2023-02-08] MEDS ORDERED: METOCLOPRAMIDE HCL 10 MG/2 ML VIAL ONE ×2 (13:57→15:40)
[2023-02-08] MEDS ORDERED: METOCLOPRAMIDE HCL 10 MG/2 ML VIAL IV ONE ×2 (14:00→16:00)
[2023-02-08] MEDS ORDERED: MORPHINE SULFATE INJ 2 MG/ML DISP.SYRIN ONE (15:40)
[2023-02-08] MEDS ORDERED: MORPHINE SULFATE INJ 2 MG/ML DISP.SYRIN IV ONE (16:00)
[2023-02-08 16:44] VITALS: BP 151/98; TEMP 98.1; O2SAT 97
== END 2023-02-08 16:45 | disposition home or self-care (01) ==
LOC: ER 12:05
DX: E11.43 Type 2 diabetes mellitus with diabetic autonomic (poly)neuropathy (principal); Z79.899 Other long term (current) drug therapy; Z90.49 Acquired absence of other specified parts of digestive tract; Z88.1 Allergy status to other antibiotic agents
CPT/HCPCS: 99285; 74176; 96374; 96375; 96361; 96376; 85025; 80048; 83690; 80076; 36415; J2765 ×2; J1885; J2405; J7030; J2270; J1170

== ENCOUNTER 2023-02-12 09:07 | Emergency (ER) | payer MEDICAID ==
[~2023-02-12] VITALS: Ht 167.6 cm; Wt 77.1 kg
[~2023-02-12 09:07] MED LIST changes: +OMEP40CA21 PO; +ONDA4TAB5 PO
[2023-02-12] MEDS ORDERED: diphenhydrAMINE HCL 50 MG/ML VIAL ONE (09:43)
[2023-02-12] MEDS ORDERED: ONDANSETRON HCL/PF 4 MG/2 ML VIAL ONE (09:43)
[2023-02-12] MEDS ORDERED: LORAZEPAM INJ 2 MG/ML VIAL ONE (09:44)
[2023-02-12] MEDS ORDERED: diphenhydrAMINE HCL 50 MG/ML VIAL IV ONE (10:00)
[2023-02-12] MEDS ORDERED: LORAZEPAM INJ 2 MG/ML VIAL IV ONE (10:00)
[2023-02-12] MEDS ORDERED: ONDANSETRON HCL/PF - ER 4 MG/2 ML VIAL IV ONE (10:00)
[2023-02-12 10:24] LABS: ALBUMIN 4.6 g/dL (3.4-5.0); BILIRUBIN,DIRECT 0.1 mg/dL (0.0-0.2); BILIRUBIN,TOTAL 0.3 mg/dL (0.2-1.0); CREATININE 1.3 mg/dL (0.6-1.3); POTASSIUM 3.2 mmol/L (3.5-5.1); TOTAL PROTEIN, SERUM 8.8 g/dL (6.4-8.2)
[2023-02-12] MEDS ORDERED: DEXTROSE 50%-WATER 50 ML DISP.SYRIN ONE (10:30)
[2023-02-12 10:38] LABS: BASOPHILS # (AUTO) 0.1 K/uL (0.0-0.2); BASOPHILS % (AUTO) 0.4 % (0.0-2.0); EOSINOPHILS % (AUTO) 0.2 % (0.0-6.0); HEMATOCRIT 41 % (39-51); HEMOGLOBIN 13.4 g/dL (13.5-17.5); LYMPHOCYTES # (AUTO) 2.3 K/uL (0.8-4.8); LYMPHOCYTES % (AUTO) 16.7 % (20.0-44.0); MEAN CORPUSCULAR HEMOGLOBIN 28 PG (26.0-33.0); MEAN CORPUSCULAR HGB CONC 33 g/dl (31.0-36.0); MEAN CORPUSCULAR VOLUME 85 fL (80-96); MONOCYTES # (AUTO) 1.1 K/uL (0.1-1.30); NEUTROPHILS # (AUTO) 10.1 K/uL (1.8-8.9); NEUTROPHILS % (AUTO) 74.7 % (43.0-81.0); PLATELET COUNT (AUTO) 444 K/uL (150-450); RED CELL DISTRIBUTION WIDTH 15.7 % (11.5-15.0); WHITE BLOOD COUNT (AUTO) 13.6 K/uL (4.3-11.0)
[2023-02-12] MEDS ORDERED: ONDA4TAB5 PO (12:28)
[2023-02-12 13:18] VITALS: BP 142/68; TEMP 98.6; O2SAT 100
== END 2023-02-12 13:18 | disposition home or self-care (01) ==
LOC: ER 09:07
DX: E11.43 Type 2 diabetes mellitus with diabetic autonomic (poly)neuropathy (principal); K31.84 Gastroparesis; R10.84 Generalized abdominal pain; Z90.49 Acquired absence of other specified parts of digestive tract; Z79.899 Other long term (current) drug therapy; Z79.4 Long term (current) use of insulin; Z88.1 Allergy status to other antibiotic agents
CPT/HCPCS: 99285; 96374; 96375; 85025; 80048; 83690; 80076; 36415; 82962 ×2; J2060; J1200; J2405

== ENCOUNTER 2023-02-13 23:58 | Emergency (ER) | payer MEDICAID ==
[~2023-02-13] VITALS: Ht 177.8 cm; Wt 77.1 kg
[2023-02-14] MEDS ORDERED: METOCLOPRAMIDE HCL 10 MG/2 ML VIAL ONE (01:39)
[2023-02-14] MEDS ORDERED: DEXTROSE 50%-WATER 50 ML DISP.SYRIN ONE (01:50)
[2023-02-14] MEDS ORDERED: DICYCLOMINE HCL INJ 20 MG/2 ML AMPUL IM ONE (01:50)
[2023-02-14] MEDS ORDERED: IV NS 0.9% 1,000 ML BAG IV ONE (02:00)
[2023-02-14] MEDS ORDERED: METOCLOPRAMIDE HCL 10 MG/2 ML VIAL IV ONE (02:00)
[2023-02-14] MEDS ORDERED: DEXTROSE 50%-WATER 50 ML DISP.SYRIN IVP ONE (02:00)
[2023-02-14] MEDS: DICYCLOMINE HCL INJ 20 MG/2 ML AMPUL IM ONE ×2 (02:07→02:33)
[2023-02-14 02:21] LABS: BASOPHILS # (AUTO) 0.1 K/uL (0.0-0.2); BASOPHILS % (AUTO) 0.4 % (0.0-2.0); EOSINOPHILS # (AUTO) 0.1 K/uL (0.0-0.7); EOSINOPHILS % (AUTO) 0.6 % (0.0-6.0); HEMATOCRIT 39 % (39-51); HEMOGLOBIN 12.7 g/dL (13.5-17.5); LYMPHOCYTES # (AUTO) 3.3 K/uL (0.8-4.8); LYMPHOCYTES % (AUTO) 24.3 % (20.0-44.0); MEAN CORPUSCULAR HEMOGLOBIN 28 PG (26.0-33.0); MEAN CORPUSCULAR HGB CONC 33 g/dl (31.0-36.0); MEAN CORPUSCULAR VOLUME 86 fL (80-96); MONOCYTES # (AUTO) 1.2 K/uL (0.1-1.30); MONOCYTES % (AUTO) 8.7 % (2.0-12.0); NEUTROPHILS # (AUTO) 8.9 K/uL (1.8-8.9); PLATELET COUNT (AUTO) 403 K/uL (150-450); RED BLOOD CELL COUNT(AUTO) 4.52 MIL/uL (4.5-6.0); RED CELL DISTRIBUTION WIDTH 16.5 % (11.5-15.0); WHITE BLOOD COUNT (AUTO) 13.5 K/uL (4.3-11.0)
[2023-02-14 02:28] LABS: INR 1.09 (0.91-1.10); PARTIAL THROMBOPLASTIN TIME 28.5 SEC (24.3-34.3); PROTHROMBIN TIME 11.4 SECS (9.2-11.1)
[2023-02-14 02:36] LABS: ALBUMIN 4.4 g/dL (3.4-5.0); BILIRUBIN,DIRECT 0.1 mg/dL (0.0-0.2); BILIRUBIN,TOTAL 0.4 mg/dL (0.2-1.0); CALCIUM, SERUM 9.5 mg/dL (8.5-10.1); CREATININE 1.2 mg/dL (0.6-1.3); POTASSIUM 3.5 mmol/L (3.5-5.1); TOTAL PROTEIN, SERUM 8.4 g/dL (6.4-8.2)
[2023-02-14] MEDS ORDERED: diphenhydrAMINE HCL 50 MG/ML VIAL IV ONE (03:00)
[2023-02-14] MEDS ORDERED: METO-295 PO (03:09)
[2023-02-14] MEDS ORDERED: diphenhydrAMINE HCL 50 MG/ML VIAL ONE (03:12)
[2023-02-14 06:36] VITALS: BP 150/89; TEMP 98.3; O2SAT 99
== END 2023-02-14 06:37 | disposition home or self-care (01) ==
LOC: ER 23:59
DX: E11.43 Type 2 diabetes mellitus with diabetic autonomic (poly)neuropathy (principal); K31.84 Gastroparesis; Z90.49 Acquired absence of other specified parts of digestive tract; Z79.899 Other long term (current) drug therapy; Z79.4 Long term (current) use of insulin; Z88.1 Allergy status to other antibiotic agents
CPT/HCPCS: 99285; 96374; 96375; 96361; 85025; 80048; 83690; 80076; 36415; 85730; 82962 ×2; 96372; J1200; J2765; J7030; J0500

== ENCOUNTER 2023-03-10 11:30 | Emergency (ER) | payer MEDICAID ==
[~2023-03-10] VITALS: Ht 180.3 cm; Wt 77.1 kg
[~2023-03-10 11:30] MED LIST changes: +METO-295 PO
[2023-03-10] MEDS ORDERED: LORAZEPAM INJ 2 MG/ML VIAL IV ONE (12:00)
[2023-03-10] MEDS ORDERED: METOCLOPRAMIDE HCL 10 MG/2 ML VIAL IV ONE (12:00)
[2023-03-10] MEDS ORDERED: IV NS 0.9% 1,000 ML BAG IV ONE (12:00)
[2023-03-10] MEDS ORDERED: DICYCLOMINE HCL INJ 20 MG/2 ML AMPUL IM ONE ×2 (12:00→12:07)
[2023-03-10] MEDS ORDERED: diphenhydrAMINE HCL 50 MG/ML VIAL IV ONE (12:00)
[2023-03-10] MEDS ORDERED: diphenhydrAMINE HCL 50 MG/ML VIAL ONE (12:07)
[2023-03-10] MEDS ORDERED: LORAZEPAM INJ 2 MG/ML VIAL ONE (12:08)
[2023-03-10] MEDS ORDERED: METOCLOPRAMIDE HCL 10 MG/2 ML VIAL ONE (12:08)
[2023-03-10 12:46] LABS: BASOPHILS # (AUTO) 0.1 K/uL (0.0-0.2); BASOPHILS % (AUTO) 0.3 % (0.0-2.0); HEMATOCRIT 36 % (39-51); HEMOGLOBIN 11.6 g/dL (13.5-17.5); LYMPHOCYTES # (AUTO) 0.9 K/uL (0.8-4.8); LYMPHOCYTES % (AUTO) 5.8 % (20.0-44.0); MEAN CORPUSCULAR HEMOGLOBIN 28 PG (26.0-33.0); MEAN CORPUSCULAR HGB CONC 33 g/dl (31.0-36.0); MEAN CORPUSCULAR VOLUME 86 fL (80-96); MONOCYTES # (AUTO) 0.5 K/uL (0.1-1.30); MONOCYTES % (AUTO) 3.2 % (2.0-12.0); NEUTROPHILS # (AUTO) 13.6 K/uL (1.8-8.9); NEUTROPHILS % (AUTO) 90.7 % (43.0-81.0); PLATELET COUNT (AUTO) 245 K/uL (150-450); RED BLOOD CELL COUNT(AUTO) 4.14 MIL/uL (4.5-6.0); RED CELL DISTRIBUTION WIDTH 15.8 % (11.5-15.0)
[2023-03-10 12:53] LABS: CALCIUM, SERUM 8.9 mg/dL (8.5-10.1); CARBON DIOXIDE 24 mmol/L (21-32); CHLORIDE 105 mmol/L (98-107); CREATININE 1.1 mg/dL (0.6-1.3); GLUCOSE 277 mg/dL (74-106); POTASSIUM 3.4 mmol/L (3.5-5.1); SODIUM SERUM 140 mmol/L (136-145); UREA NITROGEN, BLOOD 16 mg/dL (7-18)
[2023-03-10 12:59] LABS: ALANINE AMINOTRANSFERASE 15 U/L (12-78); ALBUMIN 4.3 g/dL (3.4-5.0); ALKALINE PHOSPHATASE 103 U/L (46-116); ASPARTATE AMINOTRANSFERASE 19 U/L (15-37); BILIRUBIN,TOTAL 0.5 mg/dL (0.2-1.0); LIPASE 15 U/L (16-77); TOTAL PROTEIN, SERUM 8.2 g/dL (6.4-8.2)
[2023-03-10] MEDS ORDERED: METO-295 PO (13:36)
[2023-03-10] MEDS ORDERED: DICY10CA37 PO (13:36)
[2023-03-10 13:48] LABS: ACETONE, SERUM NEGATIVE (NEGATIVE)
[2023-03-10] MEDS ORDERED: ONDANSETRON HCL/PF 4 MG/2 ML VIAL ONE (13:50)
[2023-03-10] MEDS ORDERED: ONDANSETRON HCL/PF 4 MG/2 ML VIAL IV ONE (14:00)
[2023-03-10 14:46] VITALS: BP 137/110; TEMP 97.9; O2SAT 100
[2023-03-11 08:51] LABS: SITE, VBG Other; VBG BASE EXCESS -3.5 mmol/L (-3-3); VBG COHb 0.8 %; VBG MetHb 0.1 %; VBG O2Hb 45.9 %; VBG OXYGEN SATURATION 46.3 %; VBG PH 7.333 (7.31-7.41); VBG PO2 27.1 mmHg (30-50); VBG TOTAL HEMOGLOBIN 13.5 G/dL (13.5-18.0); VENT MODE, VBG ROOM AIR
== END 2023-03-10 14:46 | disposition home or self-care (01) ==
LOC: ER 11:41
DX: E11.43 Type 2 diabetes mellitus with diabetic autonomic (poly)neuropathy (principal); K31.84 Gastroparesis; R11.15 Cyclical vomiting syndrome unrelated to migraine; E11.65 Type 2 diabetes mellitus with hyperglycemia; Z90.49 Acquired absence of other specified parts of digestive tract; Z79.899 Other long term (current) drug therapy; Z79.4 Long term (current) use of insulin
CPT/HCPCS: 99284; 96374; 96375; 96361; 82803; 85025; 82010; 83690; 36415; 80053; 82962; 96372; J2060; J1200; J2765; J2405; J7030; J0500

== ENCOUNTER 2023-04-20 21:09 | Emergency (ER) | payer MEDICAID ==
[~2023-04-20] VITALS: Ht 180.3 cm; Wt 77.1 kg
[~2023-04-20 21:09] MED LIST changes: +DICY10CA37 PO
[2023-04-20] MEDS ORDERED: INSU100V7 SQ ×2 (22:00→22:59)
[2023-04-20 22:09] VITALS: BP 133/80; TEMP 98.3; O2SAT 99
== END 2023-04-20 22:09 | disposition home or self-care (01) ==
LOC: ER 21:11
DX: E11.9 Type 2 diabetes mellitus without complications (principal); Z76.0 Encounter for issue of repeat prescription; Z98.890 Other specified postprocedural states; Z79.899 Other long term (current) drug therapy; Z79.4 Long term (current) use of insulin

== ENCOUNTER 2023-06-17 13:00 | Emergency (ER) | payer MEDICAID, OTHER ==
[~2023-06-17] VITALS: Ht 180.3 cm; Wt 77.6 kg
[2023-06-17 13:58] LABS: BASOPHILS # (AUTO) 0.1 K/uL (0.0-0.2); BASOPHILS % (AUTO) 0.8 % (0.0-2.0); EOSINOPHILS # (AUTO) 0.1 K/uL (0.0-0.7); EOSINOPHILS % (AUTO) 0.7 % (0.0-6.0); HEMATOCRIT 41 % (39-51); HEMOGLOBIN 13.2 g/dL (13.5-17.5); LYMPHOCYTES # (AUTO) 2.7 K/uL (0.8-4.8); LYMPHOCYTES % (AUTO) 24.9 % (20.0-44.0); MEAN CORPUSCULAR HEMOGLOBIN 28 PG (26.0-33.0); MEAN CORPUSCULAR HGB CONC 32 g/dl (31.0-36.0); MEAN CORPUSCULAR VOLUME 87 fL (80-96); MONOCYTES # (AUTO) 0.5 K/uL (0.1-1.30); MONOCYTES % (AUTO) 4.8 % (2.0-12.0); NEUTROPHILS # (AUTO) 7.5 K/uL (1.8-8.9); NEUTROPHILS % (AUTO) 68.8 % (43.0-81.0); PLATELET COUNT (AUTO) 309 K/uL (150-450); RED BLOOD CELL COUNT(AUTO) 4.74 MIL/uL (4.5-6.0); RED CELL DISTRIBUTION WIDTH 15.6 % (11.5-15.0); WHITE BLOOD COUNT (AUTO) 10.9 K/uL (4.3-11.0)
[2023-06-17] MEDS ORDERED: IV NS 0.9% 1,000 ML BAG IV ONE (14:00)
[2023-06-17 14:15] LABS: BILIRUBIN,DIRECT 0.1 mg/dL (0.0-0.2); BILIRUBIN,TOTAL 0.4 mg/dL (0.2-1.0); CALCIUM, SERUM 9.4 mg/dL (8.5-10.1); CREATININE 1.2 mg/dL (0.6-1.3); POTASSIUM 3.6 mmol/L (3.5-5.1); TOTAL PROTEIN, SERUM 8.4 g/dL (6.4-8.2)
[2023-06-17] MEDS ORDERED: METOCLOPRAMIDE HCL 10 MG/2 ML VIAL ONE (14:24)
[2023-06-17] MEDS ORDERED: HYDROMORPHONE 1 MG/1 ML DISP.SYRIN ONE ×2 (14:24→15:30)
[2023-06-17] MEDS ORDERED: HYDROMORPHONE INJ 2 MG/ML DISP.SYRIN IV ONE ×2 (14:30→15:30)
[2023-06-17] MEDS ORDERED: METOCLOPRAMIDE HCL 10 MG/2 ML VIAL IV ONE (14:30)
[2023-06-17 15:58] VITALS: BP 145/87; TEMP 98.4; O2SAT 97
== END 2023-06-17 15:59 | disposition home or self-care (01) ==
LOC: ER 13:06
DX: E11.43 Type 2 diabetes mellitus with diabetic autonomic (poly)neuropathy (principal); K31.84 Gastroparesis; Z90.89 Acquired absence of other organs; Z88.8 Allergy status to other drugs, medicaments and biological substances; Z91.013 Allergy to seafood
CPT/HCPCS: 99284; 96374; 96361; 96375; 85025; 80048; 83690; 80076; 36415; 82962; 96372; J2765; J7030; J1170 ×2

== ENCOUNTER 2023-06-30 11:54 | Emergency (ER) | payer OTHER ==
[~2023-06-30] VITALS: Ht 180.3 cm; Wt 77.1 kg
[2023-06-30 11:55] VITALS: TEMP 98
[2023-06-30] MEDS ORDERED: METOCLOPRAMIDE HCL 10 MG/2 ML VIAL ONE (12:05)
[2023-06-30] MEDS ORDERED: ONDANSETRON HCL/PF 4 MG/2 ML VIAL ONE (12:05)
[2023-06-30] MEDS ORDERED: KETOROLAC TROMETHAMINE 15 MG/ML VIAL ONE (12:05)
[2023-06-30] MEDS: ONDANSETRON HCL/PF 4 MG/2 ML VIAL IVP ONE (12:05)
[2023-06-30] MEDS: KETOROLAC TROMETHAMINE 15 MG/ML VIAL IV ONE (12:07)
[2023-06-30] MEDS: IV NS 0.9% 1,000 ML BAG IV ONE ×2 (12:10→13:20)
[2023-06-30] MEDS: METOCLOPRAMIDE HCL 10 MG/2 ML VIAL IV ONE (12:12)
[2023-06-30 12:16] LABS: BASOPHILS # (AUTO) 0.1 K/uL (0.0-0.2); BASOPHILS % (AUTO) 1.2 % (0.0-2.0); EOSINOPHILS # (AUTO) 0.2 K/uL (0.0-0.7); EOSINOPHILS % (AUTO) 1.6 % (0.0-6.0); HEMATOCRIT 41 % (39-51); HEMOGLOBIN 13.4 g/dL (13.5-17.5); LYMPHOCYTES # (AUTO) 2.3 K/uL (0.8-4.8); LYMPHOCYTES % (AUTO) 20.6 % (20.0-44.0); MEAN CORPUSCULAR HEMOGLOBIN 28 PG (26.0-33.0); MEAN CORPUSCULAR HGB CONC 33 g/dl (31.0-36.0); MEAN CORPUSCULAR VOLUME 85 fL (80-96); MONOCYTES # (AUTO) 0.7 K/uL (0.1-1.30); MONOCYTES % (AUTO) 6.6 % (2.0-12.0); NEUTROPHILS # (AUTO) 7.7 K/uL (1.8-8.9); PLATELET COUNT (AUTO) 377 K/uL (150-450); RED BLOOD CELL COUNT(AUTO) 4.81 MIL/uL (4.5-6.0); RED CELL DISTRIBUTION WIDTH 15.2 % (11.5-15.0); WHITE BLOOD COUNT (AUTO) 11.1 K/uL (4.3-11.0)
[2023-06-30] MEDS ORDERED: diphenhydrAMINE HCL 50 MG/ML VIAL ONE (12:18)
[2023-06-30] MEDS: diphenhydrAMINE HCL 50 MG/ML VIAL IV ONE (12:24)
[2023-06-30 12:36] LABS: CALCIUM, SERUM 9.8 mg/dL (8.5-10.1); CARBON DIOXIDE 27 mmol/L (21-32); CHLORIDE 97 mmol/L (98-107); CREATININE 1.3 mg/dL (0.6-1.3); GLUCOSE 238 mg/dL (74-106); POTASSIUM 3.7 mmol/L (3.5-5.1); SODIUM SERUM 137 mmol/L (136-145); UREA NITROGEN, BLOOD 13 mg/dL (7-18)
[2023-06-30 12:42] LABS: ALANINE AMINOTRANSFERASE 19 U/L (12-78); ALBUMIN 4.3 g/dL (3.4-5.0); ALKALINE PHOSPHATASE 114 U/L (46-116); ASPARTATE AMINOTRANSFERASE 14 U/L (15-37); BILIRUBIN,DIRECT 0.1 mg/dL (0.0-0.2); BILIRUBIN,TOTAL 0.6 mg/dL (0.2-1.0); LIPASE 19 U/L (16-77); TOTAL PROTEIN, SERUM 8.6 g/dL (6.4-8.2)
[2023-06-30] MEDS ORDERED: IOHEXOL-300 100 ML VIAL IV ONE (12:58)
[2023-06-30] MEDS ORDERED: IV NS 0.9% 250 ML IV ONE (12:59)
[2023-06-30] MEDS ORDERED: INSULIN REGULAR, HUMAN 100 UNIT/ML 10 ML VIAL ONE (13:03)
[2023-06-30] MEDS ORDERED: PROCHLORPERAZINE EDISYLATE 10 MG/2 ML VIAL ONE (13:03)
[2023-06-30] MEDS: PROCHLORPERAZINE EDISYLATE 10 MG/2 ML VIAL IVP ONE (13:05)
[2023-06-30] MEDS: INSULIN REGULAR, HUMAN 100 UNIT/ML 10 ML VIAL SQ ONE (13:10)
[2023-06-30] MEDS ORDERED: DIAZEPAM 5 MG/ML 2 ML DISP.SYRIN ONE (13:17)
[2023-06-30] MEDS: DIAZEPAM 5 MG/ML 2 ML DISP.SYRIN IV ONE ×2 (13:20)
[2023-06-30] MEDS: LORAZEPAM INJ 2 MG/ML VIAL IV ONE (13:22)
[2023-06-30 13:31] LABS: LACTIC ACID 3.3 mmol/L (0.4-2.0)
[2023-06-30] MEDS ORDERED: DICY10CA37 PO (13:42)
[2023-06-30] MEDS ORDERED: ONDA4TAB5 PO (13:42)
[2023-06-30] MEDS ORDERED: PROC5TAB56 PO (13:42)
[2023-06-30] MEDS ORDERED: METO-295 PO (13:42)
[2023-06-30 15:08] LABS: APPEARANCE,URINE CLEAR (CLEAR); BILIRUBIN,URINE NEGATIVE (NEGATIVE); BLOOD, URINE TRACE-INTA Ery/uL (NEGATIVE); COLOR,URINE YELLOW (YELLOW); KETONES,URINE NEGATIVE (NEGATIVE); LEUKOCYTE ESTERASE ,URINE NEGATIVE (NEGATIVE); NITRITE, URINE NEGATIVE (NEGATIVE); PROTEIN,URINE 2+ mg/dl (NEGATIVE); UGLUCOSE 1+ mg/dL (NEGATIVE); UROBILINOGEN,URINE 0.2 EU/dL (0.2)
[2023-06-30 15:31] LABS: ADD URINE CULTURE NO; BACTERIA,URINE None seen /HPF (None Seen); RBC,URINE 0-2 /HPF (0-2); SQUAMOUS EPITHELIAL CELL,UR None Seen /HPF (None Seen); WBC,URINE NONE SEEN /HPF (0-3)
[2023-06-30] MEDS: ERYTHROMYCIN BASE (250 MG) 250 MG CAPSULE.DR PO ONE (17:00)
[2023-06-30] MEDS ORDERED: ERYTHROMYCIN BASE (250 MG) 250 MG CAPSULE.DR PO ONE (17:06)
[2023-06-30 17:18] VITALS: BP 125/70; O2SAT 100
== END 2023-06-30 17:19 | disposition home or self-care (01) ==
LOC: ER 12:07
DX: E11.43 Type 2 diabetes mellitus with diabetic autonomic (poly)neuropathy (principal); K31.84 Gastroparesis; R11.2 Nausea with vomiting, unspecified; Z90.89 Acquired absence of other organs; Z88.8 Allergy status to other drugs, medicaments and biological substances; Z91.013 Allergy to seafood; Z79.4 Long term (current) use of insulin; Z79.899 Other long term (current) drug therapy
CPT/HCPCS: 99284; 96375; 96374; 96361; 85025; 80048; 83605 ×2; 83690; 80076; 81001; 36415; 82962 ×2; 96372; J0780; J3360; J1200; J1815; J2765; J2405; J7030 ×3; J7050; Q9967; J1885

== ENCOUNTER 2023-07-23 22:20 | Emergency (ER) | payer OTHER ==
[~2023-07-23] VITALS: Ht 180.3 cm; Wt 77.1 kg
[~2023-07-23 22:20] MED LIST changes: +PROC5TAB56 PO
[2023-07-24 00:37] VITALS: BP 130/83; TEMP 97.9; O2SAT 100
[2023-07-24] MEDS ORDERED: INSULIN REGULAR, HUMAN 100 UNIT/ML 10 ML VIAL ONE (00:48)
[2023-07-24] MEDS: INSULIN REGULAR, HUMAN 100 UNIT/ML 10 ML VIAL SQ ONE (00:51)
== END 2023-07-24 00:58 | disposition home or self-care (01) ==
LOC: ER 22:23
DX: E11.65 Type 2 diabetes mellitus with hyperglycemia (principal); Z90.89 Acquired absence of other organs; Z88.8 Allergy status to other drugs, medicaments and biological substances; Z91.013 Allergy to seafood; Z79.4 Long term (current) use of insulin; Z79.899 Other long term (current) drug therapy
CPT/HCPCS: 99283; 96372; 82962; J1815

== ENCOUNTER 2023-09-17 23:59 | Emergency (ER) | payer MEDICAID, OTHER ==
[~2023-09-17] VITALS: Ht 177.8 cm; Wt 74.8 kg
[2023-09-18 01:00] VITALS: BP 132/81; TEMP 98.8; O2SAT 98
[2023-09-18 01:51] LABS: BASOPHILS % (AUTO) 0.4 % (0.0-2.0); EOSINOPHILS % (AUTO) 1.6 % (0.0-6.0); HEMATOCRIT 34 % (39-51); HEMOGLOBIN 11.3 g/dL (13.5-17.5); LYMPHOCYTES % (AUTO) 24.9 % (20.0-44.0); MEAN CORPUSCULAR HEMOGLOBIN 29 PG (26.0-33.0); MEAN CORPUSCULAR HGB CONC 33 g/dl (31.0-36.0); MEAN CORPUSCULAR VOLUME 86 fL (80-96); MONOCYTES % (AUTO) 13.6 % (2.0-12.0); NEUTROPHILS % (AUTO) 59.5 % (43.0-81.0); PLATELET COUNT (AUTO) 320 K/uL (150-450); RED BLOOD CELL COUNT(AUTO) 3.95 MIL/uL (4.5-6.0); RED CELL DISTRIBUTION WIDTH 16.6 % (11.5-15.0); WHITE BLOOD COUNT (AUTO) 10.3 K/uL (4.3-11.0)
[2023-09-18 01:52] LABS: EOSINOPHILS # (AUTO) 0.2 K/uL (0.0-0.7); LYMPHOCYTES # (AUTO) 2.6 K/uL (0.8-4.8); MONOCYTES # (AUTO) 1.4 K/uL (0.1-1.30); NEUTROPHILS # (AUTO) 6.1 K/uL (1.8-8.9)
[2023-09-18 02:09] LABS: CALCIUM, SERUM 8.8 mg/dL (8.5-10.1); CARBON DIOXIDE 32 mmol/L (21-32); CHLORIDE 101 mmol/L (98-107); CREATININE 1.5 mg/dL (0.6-1.3); GLUCOSE 212 mg/dL (74-106); POTASSIUM 3.9 mmol/L (3.5-5.1); SODIUM SERUM 137 mmol/L (136-145); UREA NITROGEN, BLOOD 13 mg/dL (7-18)
[2023-09-18 02:15] LABS: ALANINE AMINOTRANSFERASE 15 U/L (12-78); ALBUMIN 3.5 g/dL (3.4-5.0); ALCOHOL, BLOOD < 3 mg/dL (0-10); ALKALINE PHOSPHATASE 102 U/L (46-116); ASPARTATE AMINOTRANSFERASE 15 U/L (15-37); BILIRUBIN,TOTAL 0.2 mg/dL (0.2-1.0); LIPASE 90 U/L (16-77); TOTAL PROTEIN, SERUM 7.3 g/dL (6.4-8.2)
[2023-09-18 02:17] LABS: LACTIC ACID 1.5 mmol/L (0.4-2.0)
[2023-09-18] MEDS ORDERED: DICY10CA37 PO (03:19)
[2023-09-18] MEDS ORDERED: DICYCLOMINE HCL 10 MG CAPSULE PO ONE (03:29)
[2023-09-18] MEDS ORDERED: KETOROLAC TROMETHAMINE INJ 30 MG/ML VIAL ONE (03:29)
[2023-09-18] MEDS: KETOROLAC TROMETHAMINE INJ 60 MG/2 ML VIAL IM ONE (03:39)
[2023-09-18] MEDS: DICYCLOMINE HCL 10 MG CAPSULE PO ONE (03:40)
== END 2023-09-18 03:42 | disposition home or self-care (01) ==
LOC: ER 09-18 00:03
DX: R10.9 Unspecified abdominal pain (principal); E11.9 Type 2 diabetes mellitus without complications; Z90.89 Acquired absence of other organs; Z91.013 Allergy to seafood; Z88.8 Allergy status to other drugs, medicaments and biological substances; Z79.4 Long term (current) use of insulin; Z79.899 Other long term (current) drug therapy
CPT/HCPCS: 99284; 74176; 85025; 83605; 83690; 36415; 80053; 80320; J1885; G0480

== ENCOUNTER 2023-10-03 13:12 | Emergency (ER) | payer MEDICAID ==
[~2023-10-03] VITALS: Ht 177.8 cm; Wt 77.6 kg
[2023-10-03] MEDS ORDERED: diphenhydrAMINE HCL 50 MG/ML VIAL ONE (13:34)
[2023-10-03] MEDS ORDERED: MAG HYDROX/AL HYDROX/SIMETH 30 ML UDC ONE (13:34)
[2023-10-03] MEDS ORDERED: METOCLOPRAMIDE HCL 10 MG/2 ML VIAL ONE (13:35)
[2023-10-03] MEDS ORDERED: HYDROMORPHONE 1 MG/1 ML DISP.SYRIN ONE (13:35)
[2023-10-03] MEDS ORDERED: FAMOTIDINE/PF INJ 20 MG/2 ML VIAL IV ONE (13:35)
[2023-10-03] MEDS ORDERED: LIDOCAINE VISCOUS 2% UD 15 ML UDC ONE (13:35)
[2023-10-03] MEDS: diphenhydrAMINE HCL 50 MG/ML VIAL IV ONE (13:45)
[2023-10-03] MEDS: IV NS 0.9% 1,000 ML BAG IV ONE (13:46)
[2023-10-03] MEDS: LIDOCAINE VISCOUS 2% UD 15 ML UDC MM ONE (13:46)
[2023-10-03] MEDS: FAMOTIDINE/PF INJ 20 MG/2 ML VIAL IV ONE (13:46)
[2023-10-03] MEDS: MAG HYDROX/AL HYDROX/SIMETH 30 ML UDC PO ONE (13:47)
[2023-10-03] MEDS: HYDROMORPHONE INJ 2 MG/ML DISP.SYRIN IV ONE (13:50)
[2023-10-03] MEDS: METOCLOPRAMIDE HCL 10 MG/2 ML VIAL IV ONE (13:51)
[2023-10-03 14:01] LABS: ABG OXYGEN SATURATION 63.4 % (92.0-98.5); ABG PCO2 40.4 mmHg (35.0-45.0); ABG PH 7.419 (7.350-7.450); ABG PO2 33.1 mmHg (75.0-100.0); ABG TOTAL HEMOGLOBIN 12.5 G/dL (13.5-18.0); COHb 0.1 % (0.5-1.5); MetHb 0.3 % (0.0-1.5); O2Hb 63.1 % (94.0-97.0); SITE, ABG Other; VENT MODE, BG ROOM AIR
[2023-10-03 14:05] LABS: BASOPHILS # (AUTO) 0.1 K/uL (0.0-0.2); BASOPHILS % (AUTO) 0.7 % (0.0-2.0); EOSINOPHILS # (AUTO) 0.1 K/uL (0.0-0.7); EOSINOPHILS % (AUTO) 0.7 % (0.0-6.0); HEMATOCRIT 40 % (39-51); HEMOGLOBIN 12.9 g/dL (13.5-17.5); LYMPHOCYTES % (AUTO) 16.6 % (20.0-44.0); MEAN CORPUSCULAR HEMOGLOBIN 27 PG (26.0-33.0); MEAN CORPUSCULAR HGB CONC 32 g/dl (31.0-36.0); MEAN CORPUSCULAR VOLUME 84 fL (80-96); MONOCYTES # (AUTO) 0.5 K/uL (0.1-1.30); NEUTROPHILS # (AUTO) 9.3 K/uL (1.8-8.9); PLATELET COUNT (AUTO) 386 K/uL (150-450); RED BLOOD CELL COUNT(AUTO) 4.78 MIL/uL (4.5-6.0); RED CELL DISTRIBUTION WIDTH 16.8 % (11.5-15.0); WHITE BLOOD COUNT (AUTO) 11.9 K/uL (4.3-11.0)
[2023-10-03 14:22] LABS: CALCIUM, SERUM 9.2 mg/dL (8.5-10.1); CREATININE 1.2 mg/dL (0.6-1.3); POTASSIUM 4.3 mmol/L (3.5-5.1)
[2023-10-03 14:35] LABS: ALBUMIN 4.1 g/dL (3.4-5.0); BILIRUBIN,DIRECT 0.2 mg/dL (0.0-0.2); BILIRUBIN,TOTAL 0.5 mg/dL (0.2-1.0); TOTAL PROTEIN, SERUM 8.8 g/dL (6.4-8.2)
[2023-10-03] MEDS ORDERED: ONDANSETRON HCL/PF 4 MG/2 ML VIAL ONE (16:06)
[2023-10-03] MEDS: ONDANSETRON HCL/PF 4 MG/2 ML VIAL IV ONE (16:11)
[2023-10-03 16:27] LABS: APPEARANCE,URINE Clear (CLEAR); BILIRUBIN,URINE Negative (NEGATIVE); BLOOD, URINE Trace-intact Ery/uL (NEGATIVE); COLOR,URINE YELLOW (YELLOW); KETONES,URINE 15 mg/dL (NEGATIVE); LEUKOCYTE ESTERASE ,URINE Negative (NEGATIVE); NITRITE, URINE Negative (NEGATIVE); PH,URINE 8.5 (5.0-8.0); PROTEIN,URINE >=300 mg/dl (NEGATIVE); UGLUCOSE 500 MG/DL mg/dL (NEGATIVE); UROBILINOGEN,URINE 0.2 EU/dL (0.2)
[2023-10-03 16:36] LABS: AMPHETAMINE, URINE NEGATIVE (NEGATIVE); BARBITURATE, URINE NEGATIVE (NEGATIVE); BENZODIAZEPINE, URINE NEGATIVE (NEGATIVE); COCCAINE, URINE NEGATIVE (NEGATIVE); PHENCYCLIDINE SCREEN,URINE NEGATIVE (NEGATIVE)
[2023-10-03 16:40] LABS: CANNABINOID, URINE POSITIVE (NEGATIVE); OPIATE, URINE POSITIVE (NEGATIVE)
[2023-10-03 16:48] VITALS: BP 156/76; TEMP 98.2; O2SAT 98
[2023-10-03 16:58] LABS: RBC,URINE 0-2 /HPF (0-2)
[2023-10-03 16:59] LABS: ADD URINE CULTURE NO; BACTERIA,URINE Rare /HPF (None Seen); SQUAMOUS EPITHELIAL CELL,UR Rare /HPF (None Seen); WBC,URINE 0-2 /HPF (0-3)
== END 2023-10-03 16:49 | disposition home or self-care (01) ==
LOC: ER 13:18
DX: E11.65 Type 2 diabetes mellitus with hyperglycemia (principal); E11.43 Type 2 diabetes mellitus with diabetic autonomic (poly)neuropathy; K31.84 Gastroparesis; R11.15 Cyclical vomiting syndrome unrelated to migraine; Z90.89 Acquired absence of other organs; Z88.8 Allergy status to other drugs, medicaments and biological substances; Z91.013 Allergy to seafood; Z79.899 Other long term (current) drug therapy
CPT/HCPCS: 99285; 96374; 96361; 96375; 82803; 71045; 82010; 85025; 80048; 83690; 80076; 81001; 36415; 82962; 36600; 80320; 80307; J1200; J3490; J2765; J2405; J7030; J1170; G0480

== ENCOUNTER 2023-12-19 22:51 | Emergency (ER) | payer MEDICAID ==
[~2023-12-19] VITALS: Ht 180.3 cm; Wt 77.1 kg
[2023-12-20 00:50] VITALS: TEMP 98
[2023-12-20] MEDS ORDERED: HYDROCODONE/APAP 10/325MG TABLET ONE (01:57)
[2023-12-20] MEDS: HYDROCODONE/APAP 10/325MG TABLET PO ONE (02:01)
[2023-12-20] MEDS ORDERED: CYCL10TA9 PO (02:26)
[2023-12-20 03:59] VITALS: BP 136/88; O2SAT 98
== END 2023-12-20 04:08 | disposition home or self-care (01) ==
LOC: ER 22:57
DX: S16.1XXA Strain of muscle, fascia and tendon at neck level, initial encounter (principal); R51.9 Headache, unspecified; E11.9 Type 2 diabetes mellitus without complications; F19.10 Other psychoactive substance abuse, uncomplicated; Z90.49 Acquired absence of other specified parts of digestive tract; Z88.8 Allergy status to other drugs, medicaments and biological substances; Z91.013 Allergy to seafood; V43.92XA Unspecified car occupant injured in collision with other type car in traffic accident, initial encounter; Y93.89 Activity, other specified; Y92.488 Other paved roadways as the place of occurrence of the external cause; Y99.8 Other external cause status
CPT/HCPCS: 70450-TC; 72125-TC

== ENCOUNTER 2024-01-12 10:16 | Inpatient (IN) | payer MEDICAID, OTHER ==
[~2024-01-12] VITALS: Ht 180.3 cm; Wt 77.1 kg
[~2024-01-12 10:16] MED LIST changes: +CYCL10TA9 PO
[2024-01-12] MEDS: IV LR 1000 ML 1,000 ML IV ONE (10:49)
[2024-01-12] MEDS: IV NS 0.9% 1,000 ML BAG IV ONE (10:49)
[2024-01-12 10:54] LABS: BASOPHILS # (AUTO) 0.1 K/uL (0.0-0.2); BASOPHILS % (AUTO) 1.1 % (0.0-2.0); EOSINOPHILS # (AUTO) 0.1 K/uL (0.0-0.7); EOSINOPHILS % (AUTO) 0.7 % (0.0-6.0); HEMATOCRIT 37 % (39-51); HEMOGLOBIN 12.2 g/dL (13.5-17.5); LYMPHOCYTES # (AUTO) 2.1 K/uL (0.8-4.8); LYMPHOCYTES % (AUTO) 23.6 % (20.0-44.0); MEAN CORPUSCULAR HEMOGLOBIN 27 PG (26.0-33.0); MEAN CORPUSCULAR HGB CONC 33 g/dl (31.0-36.0); MEAN CORPUSCULAR VOLUME 81 fL (80-96); MONOCYTES # (AUTO) 0.7 K/uL (0.1-1.30); MONOCYTES % (AUTO) 7.4 % (2.0-12.0); NEUTROPHILS % (AUTO) 67.2 % (43.0-81.0); PLATELET COUNT (AUTO) 369 K/uL (150-450); RED CELL DISTRIBUTION WIDTH 16.9 % (11.5-15.0); WHITE BLOOD COUNT (AUTO) 8.9 K/uL (4.3-11.0)
[2024-01-12] MEDS ORDERED: ONDANSETRON HCL/PF 4 MG/2 ML VIAL ONE (10:57)
[2024-01-12] MEDS ORDERED: DICYCLOMINE HCL INJ 20 MG/2 ML AMPUL IM ONE (10:57)
[2024-01-12 10:58] LABS: CALCIUM, SERUM 9.9 mg/dL (8.5-10.1); CREATININE 1.6 mg/dL (0.6-1.3)
[2024-01-12 11:04] LABS: BILIRUBIN,DIRECT 0.1 mg/dL (0.0-0.2); BILIRUBIN,TOTAL 0.6 mg/dL (0.2-1.0); TOTAL PROTEIN, SERUM 8.5 g/dL (6.4-8.2)
[2024-01-12] MEDS: ONDANSETRON HCL/PF 4 MG/2 ML VIAL IVP ONE (11:11)
[2024-01-12] MEDS: DICYCLOMINE HCL INJ 20 MG/2 ML AMPUL IM ONE (11:12)
[2024-01-12] MEDS ORDERED: MORPHINE SULFATE INJ 4 MG/ML DISP.SYRIN ONE (11:17)
[2024-01-12] MEDS: MORPHINE SULFATE INJ 2 MG/ML DISP.SYRIN IV ONE (11:19)
[2024-01-12 12:08] LABS: SITE, VBG Other; VBG BASE EXCESS 2.5 mmol/L (-3-3); VBG COHb 0.1 %; VBG MetHb 0.9 %; VBG O2Hb 31.3 %; VBG OXYGEN SATURATION 31.6 %; VBG PCO2 33.8 mmHg (40-52); VBG PH 7.494 (7.31-7.41); VBG PO2 18.6 mmHg (30-50); VENT MODE, VBG VBG
[2024-01-12] MEDS ORDERED: LORAZEPAM INJ 2 MG/ML VIAL ONE (12:25)
[2024-01-12] MEDS ORDERED: INSU100I28 SQ (12:26)
[2024-01-12] MEDS: LORAZEPAM INJ 2 MG/ML VIAL IV ONE (12:30)
[2024-01-12] MEDS ORDERED: FAMOTIDINE (20 MG) 20 MG TABLET ONE (16:12)
[2024-01-12] MEDS: FAMOTIDINE (20 MG) 20 MG TABLET PO ONE (16:13)
[2024-01-12] MEDS ORDERED: ACETAMINOPHEN 325 MG TABLET PO PRN (18:00)
[2024-01-12] MEDS: PANTOPRAZOLE 40 MG VIAL IV SCH (18:10)
[2024-01-12] MEDS: IV NS 0.9% 1,000 ML IV PRN (18:11)
[2024-01-12] MEDS: MORPHINE SULFATE INJ 2 MG/ML DISP.SYRIN IV PRN (19:41)
[2024-01-12] MEDS: ONDANSETRON HCL/PF 4 MG/2 ML VIAL IVP PRN (19:41)
[2024-01-12 20:00] VITALS: BP 159/109; TEMP 97.7; O2SAT 100
[2024-01-12] MEDS: BLOOD SUGAR DIAGNOSTIC 1 EACH STRIP IN SCH (21:04)
[2024-01-12] MEDS: INSULIN REGULAR, HUMAN 100 UNIT/ML 3 ML VIAL SQ PRN (21:05)
[2024-01-13] VITALS: BP 159/112; TEMP 97.6; O2SAT 100
[2024-01-13] MEDS: INSULIN GLARGINE, 100 UNIT/ML CARTRIDGE SQ SCH (06:31)
[2024-01-13 06:39] LABS: BASOPHILS % (AUTO) 0.4 % (0.0-2.0); EOSINOPHILS % (AUTO) 0.3 % (0.0-6.0); HEMATOCRIT 37 % (39-51); HEMOGLOBIN 11.6 g/dL (13.5-17.5); LYMPHOCYTES # (AUTO) 2.2 K/uL (0.8-4.8); LYMPHOCYTES % (AUTO) 19.8 % (20.0-44.0); MEAN CORPUSCULAR HEMOGLOBIN 26 PG (26.0-33.0); MEAN CORPUSCULAR HGB CONC 32 g/dl (31.0-36.0); MEAN CORPUSCULAR VOLUME 82 fL (80-96); MONOCYTES # (AUTO) 0.9 K/uL (0.1-1.30); MONOCYTES % (AUTO) 8.2 % (2.0-12.0); NEUTROPHILS # (AUTO) 7.8 K/uL (1.8-8.9); NEUTROPHILS % (AUTO) 71.3 % (43.0-81.0); PLATELET COUNT (AUTO) 372 K/uL (150-450); RED BLOOD CELL COUNT(AUTO) 4.51 MIL/uL (4.5-6.0)
[2024-01-13 07:01] LABS: CALCIUM, SERUM 8.8 mg/dL (8.5-10.1); MAGNESIUM 1.7 mg/dL (1.8-2.4); PHOSPHORUS 2.8 mg/dL (2.5-4.9); POTASSIUM 3.1 mmol/L (3.5-5.1)
[2024-01-13 07:30] VITALS: BP 144/108; TEMP 98.2; O2SAT 97
[2024-01-13] MEDS ORDERED: METOCLOPRAMIDE HCL 10 MG/2 ML VIAL IV SCH ×2 (10:00→10:30)
[2024-01-13] MEDS ORDERED: MORPHINE SULFATE INJ 2 MG/ML DISP.SYRIN IV PRN (10:00)
[2024-01-13] MEDS: POTASSIUM CL. PREMIX PERIPHER. 50 ML IV SCH (10:00)
[2024-01-13] MEDS ORDERED: Magnesium 1GM/D5W 100ML PREMIX 100 ML IV SCH (10:30)
[2024-01-13] MEDS: IV D5/ 0.9% NACL 1,000 ML IV PRN (13:31)
[2024-01-13] MEDS: HYDROMORPHONE 1 MG/1 ML DISP.SYRIN IV PRN (13:36)
[2024-01-13] MEDS: ONDANSETRON HCL/PF 4 MG/2 ML VIAL IVP PRN (13:37)
[2024-01-13] MEDS: MAGNESIUM OXIDE 400 MG TABLET PO ONE (14:19)
[2024-01-13] MEDS: POTASSIUM CHLORIDE 20 MEQ TAB.PRT.SR PO ONE (14:19)
[2024-01-13 16:00] VITALS: BP 150/101; TEMP 98.2; O2SAT 100
[2024-01-13] MEDS ORDERED: IV NS 0.9% 1,000 ML BAG IV PRN (19:30)
[2024-01-13] MEDS: IV NS 0.9% 1,000 ML IV PRN (23:04)
[2024-01-14] VITALS: BP 164/119; TEMP 98.4; O2SAT 99
[2024-01-14 06:57] LABS: BASOPHILS % (AUTO) 0.6 % (0.0-2.0); EOSINOPHILS % (AUTO) 0.6 % (0.0-6.0); HEMATOCRIT 33 % (39-51); HEMOGLOBIN 10.7 g/dL (13.5-17.5); LYMPHOCYTES # (AUTO) 1.3 K/uL (0.8-4.8); LYMPHOCYTES % (AUTO) 17.1 % (20.0-44.0); MEAN CORPUSCULAR HEMOGLOBIN 27 PG (26.0-33.0); MEAN CORPUSCULAR HGB CONC 32 g/dl (31.0-36.0); MEAN CORPUSCULAR VOLUME 82 fL (80-96); MONOCYTES # (AUTO) 0.8 K/uL (0.1-1.30); MONOCYTES % (AUTO) 10.2 % (2.0-12.0); NEUTROPHILS # (AUTO) 5.4 K/uL (1.8-8.9); NEUTROPHILS % (AUTO) 71.5 % (43.0-81.0); PLATELET COUNT (AUTO) 301 K/uL (150-450); RED BLOOD CELL COUNT(AUTO) 4.04 MIL/uL (4.5-6.0); RED CELL DISTRIBUTION WIDTH 16.8 % (11.5-15.0); WHITE BLOOD COUNT (AUTO) 7.6 K/uL (4.3-11.0)
[2024-01-14 07:13] LABS: CALCIUM, SERUM 8.4 mg/dL (8.5-10.1); CREATININE 1.1 mg/dL (0.6-1.3); MAGNESIUM 1.9 mg/dL (1.8-2.4); PHOSPHORUS 2.4 mg/dL (2.5-4.9); POTASSIUM 3.5 mmol/L (3.5-5.1)
[2024-01-14 08:00] VITALS: BP 135/92; TEMP 98.2; O2SAT 100
[2024-01-14] MEDS: IV D5/ 0.9% NACL 1,000 ML IV PRN (11:40)
[2024-01-14] MEDS: diphenhydrAMINE HCL 50 MG/ML VIAL IV PRN (15:17)
[2024-01-14] MEDS: K PHOS NEUTRAL 250 MG TABLET PO ONE (17:30)
[2024-01-14] MEDS: DEXTROSE 50%-WATER 50 ML DISP.SYRIN IV PRN (21:54)
[2024-01-14 22:00] VITALS: BP 150/100; TEMP 97.5; O2SAT 100
[2024-01-15 07:00] LABS: BASOPHILS # (AUTO) 0.1 K/uL (0.0-0.2); BASOPHILS % (AUTO) 0.7 % (0.0-2.0); EOSINOPHILS # (AUTO) 0.1 K/uL (0.0-0.7); EOSINOPHILS % (AUTO) 0.9 % (0.0-6.0); HEMATOCRIT 37 % (39-51); HEMOGLOBIN 11.8 g/dL (13.5-17.5); LYMPHOCYTES % (AUTO) 37.9 % (20.0-44.0); MEAN CORPUSCULAR HEMOGLOBIN 26 PG (26.0-33.0); MEAN CORPUSCULAR HGB CONC 32 g/dl (31.0-36.0); MEAN CORPUSCULAR VOLUME 81 fL (80-96); MONOCYTES # (AUTO) 0.7 K/uL (0.1-1.30); MONOCYTES % (AUTO) 9.1 % (2.0-12.0); NEUTROPHILS # (AUTO) 4.1 K/uL (1.8-8.9); NEUTROPHILS % (AUTO) 51.4 % (43.0-81.0); PLATELET COUNT (AUTO) 347 K/uL (150-450); RED BLOOD CELL COUNT(AUTO) 4.49 MIL/uL (4.5-6.0); RED CELL DISTRIBUTION WIDTH 16.9 % (11.5-15.0)
[2024-01-15 07:25] LABS: CALCIUM, SERUM 9.1 mg/dL (8.5-10.1); CREATININE 1.1 mg/dL (0.6-1.3); MAGNESIUM 1.9 mg/dL (1.8-2.4); PHOSPHORUS 2.6 mg/dL (2.5-4.9); POTASSIUM 3.1 mmol/L (3.5-5.1)
[2024-01-15] MEDS: PANTOPRAZOLE 40 MG TABLET.DR PO SCH (07:54)
[2024-01-15 08:26] VITALS: BP 153/89; TEMP 97.9; O2SAT 100
[2024-01-15] MEDS ORDERED: KETOROLAC TROMETHAMINE 15 MG/ML VIAL IV PRN (11:30)
[2024-01-15] MEDS: POTASSIUM CHLORIDE 20 MEQ TAB.PRT.SR PO ONE (11:44)
[2024-01-15 15:57] VITALS: BP 154/100; TEMP 97.9; O2SAT 98
[2024-01-15 20:00] VITALS: BP 146/90; TEMP 98.6; O2SAT 99
[2024-01-15] MEDS: MORPHINE SULFATE INJ 2 MG/ML DISP.SYRIN IV PRN (20:10)
[2024-01-15] MEDS: HYDROMORPHONE 1 MG/1 ML DISP.SYRIN IV ONE (21:37)
[2024-01-16 02:45] VITALS: BP 144/76; TEMP 98.2; O2SAT 100
[2024-01-16] MEDS: HYDROCODONE/APAP 5/325MG TABLET PO PRN (02:46)
[2024-01-16 07:10] LABS: BASOPHILS # (AUTO) 0.1 K/uL (0.0-0.2); BASOPHILS % (AUTO) 0.6 % (0.0-2.0); EOSINOPHILS # (AUTO) 0.1 K/uL (0.0-0.7); EOSINOPHILS % (AUTO) 1.4 % (0.0-6.0); HEMATOCRIT 32 % (39-51); HEMOGLOBIN 10.4 g/dL (13.5-17.5); LYMPHOCYTES # (AUTO) 3.8 K/uL (0.8-4.8); LYMPHOCYTES % (AUTO) 37.5 % (20.0-44.0); MEAN CORPUSCULAR HEMOGLOBIN 27 PG (26.0-33.0); MEAN CORPUSCULAR HGB CONC 33 g/dl (31.0-36.0); MEAN CORPUSCULAR VOLUME 82 fL (80-96); MONOCYTES # (AUTO) 0.8 K/uL (0.1-1.30); MONOCYTES % (AUTO) 7.9 % (2.0-12.0); NEUTROPHILS # (AUTO) 5.4 K/uL (1.8-8.9); NEUTROPHILS % (AUTO) 52.6 % (43.0-81.0); PLATELET COUNT (AUTO) 306 K/uL (150-450); RED BLOOD CELL COUNT(AUTO) 3.86 MIL/uL (4.5-6.0); RED CELL DISTRIBUTION WIDTH 17.2 % (11.5-15.0); WHITE BLOOD COUNT (AUTO) 10.2 K/uL (4.3-11.0)
[2024-01-16 07:48] LABS: CALCIUM, SERUM 8.1 mg/dL (8.5-10.1); CREATININE 1.1 mg/dL (0.6-1.3); MAGNESIUM 1.9 mg/dL (1.8-2.4); PHOSPHORUS 3.2 mg/dL (2.5-4.9); POTASSIUM 3.3 mmol/L (3.5-5.1)
[2024-01-16 08:00] VITALS: BP 177/121; TEMP 98.1; O2SAT 98
[2024-01-16] MEDS: POTASSIUM CHLORIDE 20 MEQ TAB.PRT.SR PO SCH (11:05)
== END 2024-01-16 15:00 | disposition home or self-care (01) | DRG 48 ==
LOC: ER 10:16 → TELE 16:44 → MED 01-14 11:51
PROVIDERS: ADMIT Nurse Practitioner Acute Care; ATTEND Nurse Practitioner Acute Care
PROC: 05HC33Z Insertion of Infusion Device into Left Basilic Vein, Percutaneous Approach (ICD-10-PCS; principal; 2024-01-13)
DX: E11.43 Type 2 diabetes mellitus with diabetic autonomic (poly)neuropathy (principal); N17.0 Acute kidney failure with tubular necrosis; E11.649 Type 2 diabetes mellitus with hypoglycemia without coma; K31.84 Gastroparesis; R11.2 Nausea with vomiting, unspecified; E11.65 Type 2 diabetes mellitus with hyperglycemia; E87.6 Hypokalemia; F12.10 Cannabis abuse, uncomplicated; Z88.8 Allergy status to other drugs, medicaments and biological substances; Z90.49 Acquired absence of other specified parts of digestive tract; Z79.4 Long term (current) use of insulin
CPT/HCPCS: 36415; 80048-TC; 80076-TC; 82010-TC; 82803-TC; 82962-TC; 83690-TC; 83735-TC; 84100-TC; 85025-TC; A4223; G0378; J0500; J1170; J1200; J1815; J2060; J2270; J2405; J2470; J3475; J3480; J7030; J7042; J7120

== ENCOUNTER 2024-02-05 07:28 | Emergency (ER) | payer OTHER ==
[~2024-02-05] VITALS: Ht 180.3 cm; Wt 77.1 kg
[~2024-02-05 07:28] MED LIST changes: -CYCL10TA9 PO; -DICY10CA37 PO; +INSU100I28 SQ; -INSU100I34 SQ; -METO-295 PO; -OMEP40CA21 PO; -ONDA4TAB5 PO; -PROC5TAB56 PO
[2024-02-05] MEDS: ONDANSETRON HCL/PF - ER 4 MG/2 ML VIAL IV ONE (08:00)
[2024-02-05] MEDS: IV LR 1000 ML 1,000 ML BAG IV ONE (08:00)
[2024-02-05] MEDS: IV NS 0.9% 1,000 ML BAG IV ONE (08:00)
[2024-02-05] MEDS: HYDROMORPHONE 1 MG/1 ML DISP.SYRIN IV ONE ×2 (08:00→08:40)
[2024-02-05] MEDS ORDERED: ONDANSETRON HCL/PF 4 MG/2 ML VIAL ONE (08:02)
[2024-02-05] MEDS ORDERED: HYDROMORPHONE 1 MG/1 ML DISP.SYRIN ONE ×2 (08:03→08:39)
[2024-02-05 08:04] LABS: BASOPHILS # (AUTO) 0.1 K/uL (0.0-0.2); BASOPHILS % (AUTO) 0.5 % (0.0-2.0); EOSINOPHILS % (AUTO) 0.2 % (0.0-6.0); HEMATOCRIT 36 % (39-51); HEMOGLOBIN 11.2 g/dL (13.5-17.5); LYMPHOCYTES # (AUTO) 1.4 K/uL (0.8-4.8); LYMPHOCYTES % (AUTO) 10.9 % (20.0-44.0); MEAN CORPUSCULAR HEMOGLOBIN 26 PG (26.0-33.0); MEAN CORPUSCULAR HGB CONC 32 g/dl (31.0-36.0); MEAN CORPUSCULAR VOLUME 82 fL (80-96); MONOCYTES # (AUTO) 0.6 K/uL (0.1-1.30); MONOCYTES % (AUTO) 4.4 % (2.0-12.0); NEUTROPHILS # (AUTO) 10.5 K/uL (1.8-8.9); PLATELET COUNT (AUTO) 342 K/uL (150-450); RED BLOOD CELL COUNT(AUTO) 4.35 MIL/uL (4.5-6.0); RED CELL DISTRIBUTION WIDTH 17.1 % (11.5-15.0); WHITE BLOOD COUNT (AUTO) 12.4 K/uL (4.3-11.0)
[2024-02-05 08:11] LABS: CALCIUM, SERUM 9.2 mg/dL (8.5-10.1); CREATININE 1.3 mg/dL (0.6-1.3); POTASSIUM 3.2 mmol/L (3.5-5.1)
[2024-02-05 08:17] LABS: ALBUMIN 4.2 g/dL (3.4-5.0); BILIRUBIN,DIRECT 0.1 mg/dL (0.0-0.2); BILIRUBIN,TOTAL 0.5 mg/dL (0.2-1.0); TOTAL PROTEIN, SERUM 8.1 g/dL (6.4-8.2)
--- NOTE | 2024-02-05 08:18 | NUR ---
move sheet and clinicals submitted
[2024-02-05] MEDS ORDERED: INSULIN REGULAR, HUMAN 100 UNIT/ML 10 ML VIAL ONE (08:39)
[2024-02-05] MEDS: INSULIN REGULAR, HUMAN 100 UNIT/ML 10 ML VIAL SQ ONE (08:42)
--- NOTE | 2024-02-05 08:56 | NUR ---
[facility] [phone] CALLED FOR CLINICALS
--- NOTE | 2024-02-05 08:59 | NUR ---
DR. FUENTES [phone] FOR PEER TO PEER
--- NOTE | 2024-02-05 09:00 | NUR ---
FAX CLINICALS TO [facility] [phone]
--- NOTE | 2024-02-05 09:01 | NUR ---
LEFT VOICEMAIL FOR DR. FUENTES [phone] FOR PEER TO PEER
--- NOTE | 2024-02-05 09:04 | NUR ---
Clinicals faxed to [facility] [phone]
--- NOTE | 2024-02-05 09:10 | NUR ---
LATERAL TRANSFER TO [facility] IN PLACE ABD PAIN BETTER CONTROLLED PT STABLE FOR TRANSFER
--- NOTE | 2024-02-05 09:49 | NUR ---
Peer to Peer done with Dr. Randle. Pt is accepted at [facility]
[2024-02-05 10:00] LABS: COLOR,URINE STRAW (YELLOW)
--- NOTE | 2024-02-05 10:00 | NUR ---
IV START TIME 0800 IV END TIME 0900
[2024-02-05 10:01] LABS: APPEARANCE,URINE CLEAR (CLEAR); BILIRUBIN,URINE NEGATIVE (NEGATIVE); BLOOD, URINE 1+ Ery/uL (NEGATIVE); KETONES,URINE 2+ mg/dL (NEGATIVE); LEUKOCYTE ESTERASE ,URINE NEGATIVE (NEGATIVE); NITRITE, URINE NEGATIVE (NEGATIVE); PROTEIN,URINE 2+ mg/dl (NEGATIVE); UGLUCOSE 3+ mg/dL (NEGATIVE); UROBILINOGEN,URINE 0.2 EU/dL (0.2)
[2024-02-05 10:15] LABS: WBC,URINE 0-2 /HPF (0-3)
[2024-02-05 10:17] LABS: ADD URINE CULTURE NO; BACTERIA,URINE None seen /HPF (None Seen); SQUAMOUS EPITHELIAL CELL,UR None Seen /HPF (None Seen)
--- NOTE | 2024-02-05 10:18 | NUR ---
Peer to peer dr casper at [phone]
--- NOTE | 2024-02-05 11:05 | NUR ---
TRANSFER UPDATE: STILL WAITING FOR BED ASSIGMENT AT [facility] @ THIS TIME
--- NOTE | 2024-02-05 11:15 | NUR ---
Crystal from [facility] [phone] She is working on bed assignment at [facility]
--- NOTE | 2024-02-05 13:32 | NUR ---
Pt accepted to [facility] 5796 Give report to [phone] [facility] ETA [phone]
--- NOTE | 2024-02-05 13:46 | NUR ---
REPORT GIVEN TO [facility] RECEIVING RN PT REMAINS STABLE FOR TRANSFER
--- NOTE | 2024-02-05 14:15 | NUR ---
Crystal from [facility] called, the pt will be going to room 6421 not [phone]
[2024-02-05 14:32] VITALS: BP 128/69; TEMP 98; O2SAT 98
--- NOTE | 2024-02-05 15:20 | NUR ---
TRANSFER TO [facility] PT STABLE FOR TRANSFER IVHL AMAURY LEFT UPON TRANSFER
== END 2024-02-05 15:26 ==
LOC: ER 07:30
DX: E10.43 Type 1 diabetes mellitus with diabetic autonomic (poly)neuropathy (principal); K31.84 Gastroparesis; R11.15 Cyclical vomiting syndrome unrelated to migraine; G89.29 Other chronic pain; R10.9 Unspecified abdominal pain; Z90.49 Acquired absence of other specified parts of digestive tract; Z88.8 Allergy status to other drugs, medicaments and biological substances; Z91.013 Allergy to seafood
CPT/HCPCS: 99285; 96374; 96361; 96375; 93005; 82803; 96376; 85025; 80048; 82010; 83690; 80076; 81001; 36415; 94799; 96372; J1815; J2405 ×2; J7120 ×2; J7030; J1170 ×2

== ENCOUNTER 2024-03-05 19:35 | Emergency (ER) | payer OTHER ==
[~2024-03-05] VITALS: Ht 180.3 cm; Wt 74.8 kg
[2024-03-05 22:15] VITALS: BP 134/95; TEMP 98.4; O2SAT 98
[2024-03-05 22:33] LABS: APPEARANCE,URINE CLEAR (CLEAR); BILIRUBIN,URINE NEGATIVE (NEGATIVE); BLOOD, URINE NEGATIVE Ery/uL (NEGATIVE); COLOR,URINE YELLOW (YELLOW); KETONES,URINE TRACE mg/dL (NEGATIVE); LEUKOCYTE ESTERASE ,URINE NEGATIVE (NEGATIVE); NITRITE, URINE NEGATIVE (NEGATIVE); PROTEIN,URINE 2+ mg/dl (NEGATIVE); UGLUCOSE 3+ mg/dL (NEGATIVE); UROBILINOGEN,URINE 0.2 EU/dL (0.2)
[2024-03-05] MEDS ORDERED: FLUC150T PO (23:01)
[2024-03-05] MEDS ORDERED: ACETAMINOPHEN ES 500 MG TABLET ONE (23:07)
[2024-03-05] MEDS ORDERED: CEFTRIAXONE 1 G VIAL ONE (23:07)
[2024-03-05] MEDS ORDERED: LIDOCAINE /MPF 1% VIAL 5 ML VIAL ONE (23:07)
[2024-03-05] MEDS: CEFTRIAXONE 1 G VIAL IM ONE (23:17)
[2024-03-05] MEDS: AZITHROMYCIN 250 MG TABLET PO ONE (23:18)
[2024-03-07 23:06] LABS: CHLAMYDIA TRACHOMATIS NAA Negative (Negative); NEISSERIA GONORRHOEAE NAA Negative (Negative)
== END 2024-03-05 23:19 | disposition home or self-care (01) ==
LOC: ER 19:37
DX: N34.2 Other urethritis (principal); E11.43 Type 2 diabetes mellitus with diabetic autonomic (poly)neuropathy; K31.84 Gastroparesis; F19.10 Other psychoactive substance abuse, uncomplicated; Z90.49 Acquired absence of other specified parts of digestive tract; Z88.8 Allergy status to other drugs, medicaments and biological substances; Z91.013 Allergy to seafood
CPT/HCPCS: 99283; 96372; 81003; 87491; 87591; J0696; J3490

== ENCOUNTER 2024-03-28 00:10 | Emergency (ER) | payer MEDICAID, OTHER ==
[~2024-03-28] VITALS: Ht 180.3 cm; Wt 79.4 kg
[~2024-03-28 00:10] MED LIST changes: +FLUC150T PO
[2024-03-28] MEDS ORDERED: ACETAMINOPHEN W/ CODEINE#3 1 EA TABLET ONE (02:07)
[2024-03-28] MEDS: ACETAMINOPHEN W/ CODEINE#3 1 EA TABLET PO ONE (02:09)
[2024-03-28 03:33] VITALS: BP 129/68; TEMP 98.2; O2SAT 98
== END 2024-03-28 03:34 | disposition home or self-care (01) ==
LOC: ER 00:12
DX: S63.591A Other specified sprain of right wrist, initial encounter (principal); S50.11XA Contusion of right forearm, initial encounter; F19.10 Other psychoactive substance abuse, uncomplicated; E10.9 Type 1 diabetes mellitus without complications; Z88.8 Allergy status to other drugs, medicaments and biological substances; Z90.49 Acquired absence of other specified parts of digestive tract; Z91.013 Allergy to seafood; V00.848A Other accident with standing micro-mobility pedestrian conveyance, initial encounter; Y93.89 Activity, other specified; Y92.488 Other paved roadways as the place of occurrence of the external cause; Y99.8 Other external cause status
CPT/HCPCS: 73080-TC; 73090-TC; 73110

== ENCOUNTER 2024-04-09 15:44 | Emergency (ER) | payer MEDICAID ==
[~2024-04-09] VITALS: Ht 180.3 cm; Wt 77.1 kg
[2024-04-09 15:59] VITALS: TEMP 98.5
[2024-04-09] MEDS ORDERED: LIDOCAINE 1% INJ 50 ML MDV IJ ONE (16:11)
[2024-04-09] MEDS: LIDOCAINE 1% INJ 50 ML MDV IJ ONE (16:42)
[2024-04-09] MEDS: BACI/NEOM/POLY B OINT PKT 1 UDPKT PACKET TP ONE (16:42)
[2024-04-09] MEDS ORDERED: CEPH-570 PO (17:08)
[2024-04-09] MEDS ORDERED: SULF1TAB48 PO (17:08)
[2024-04-09 17:13] VITALS: BP 112/60; O2SAT 100
== END 2024-04-09 17:14 | disposition home or self-care (01) ==
LOC: ER 16:01
DX: L02.413 Cutaneous abscess of right upper limb (principal); E11.43 Type 2 diabetes mellitus with diabetic autonomic (poly)neuropathy; K31.84 Gastroparesis; Z90.49 Acquired absence of other specified parts of digestive tract; Z79.899 Other long term (current) drug therapy; Z88.8 Allergy status to other drugs, medicaments and biological substances
CPT/HCPCS: 99283; 10060; J3490; A6407

== ENCOUNTER → 2024-04-24 | Emergency (ER) | payer MEDICAID ==
[~2024-04-24] VITALS: Ht 180.3 cm; Wt 79.4 kg
[~2024-04-24] MED LIST changes: +CEPH-570 PO; +INSU100I14 SQ; +SULF1TAB48 PO
[2024-04-24 20:35] VITALS: BP 131/74; TEMP 98.4; O2SAT 100
== END | disposition home or self-care (01) ==
LOC: ER 19:54
DX: E10.9 Type 1 diabetes mellitus without complications (principal); K31.84 Gastroparesis; Z76.0 Encounter for issue of repeat prescription; Z90.49 Acquired absence of other specified parts of digestive tract; Z88.8 Allergy status to other drugs, medicaments and biological substances; Z91.013 Allergy to seafood

== ENCOUNTER 2024-04-30 09:38 | Inpatient (IN) | payer MEDICAID ==
[~2024-04-30] VITALS: Ht 180.3 cm; Wt 79.4 kg
[2024-04-30] MEDS ORDERED: ONDANSETRON HCL/PF 4 MG/2 ML VIAL ONE ×2 (10:01→12:04)
[2024-04-30] MEDS ORDERED: diphenhydrAMINE HCL 50 MG/ML VIAL ONE (10:01)
[2024-04-30] MEDS ORDERED: PANTOPRAZOLE 40 MG VIAL ONE (10:01)
[2024-04-30] MEDS ORDERED: MAG HYDROX/AL HYDROX/SIMETH 30 ML UDC ONE (10:02)
[2024-04-30] MEDS ORDERED: FAMOTIDINE/PF INJ 20 MG/2 ML VIAL IV ONE (10:02)
[2024-04-30] MEDS: IV NS 0.9% 1,000 ML BAG IV ONE ×2 (10:16→12:59)
[2024-04-30] MEDS: diphenhydrAMINE HCL 50 MG/ML VIAL IV ONE (10:18)
[2024-04-30] MEDS: MAG HYDROX/AL HYDROX/SIMETH 30 ML UDC PO ONE (10:19)
[2024-04-30] MEDS: ONDANSETRON HCL/PF 4 MG/2 ML VIAL IV ONE ×2 (10:20→12:09)
[2024-04-30] MEDS: FAMOTIDINE/PF INJ 20 MG/2 ML VIAL IV ONE (10:20)
[2024-04-30] MEDS: PANTOPRAZOLE 40 MG VIAL IV ONE (10:21)
[2024-04-30] MEDS ORDERED: PANT20TA2 PO (10:44)
[2024-04-30] MEDS ORDERED: ONDA4TAB5 PO (10:44)
[2024-04-30] MEDS ORDERED: LORAZEPAM INJ 2 MG/ML VIAL ONE (12:11)
[2024-04-30] MEDS: LORAZEPAM INJ 2 MG/ML VIAL IM ONE (12:16)
[2024-04-30 12:50] LABS: BASOPHILS % (AUTO) 0.4 % (0.0-2.0); HEMATOCRIT 39 % (39-51); HEMOGLOBIN 12.3 g/dL (13.5-17.5); LYMPHOCYTES # (AUTO) 0.9 K/uL (0.8-4.8); LYMPHOCYTES % (AUTO) 8.4 % (20.0-44.0); MEAN CORPUSCULAR HEMOGLOBIN 26 PG (26.0-33.0); MEAN CORPUSCULAR HGB CONC 32 g/dl (31.0-36.0); MEAN CORPUSCULAR VOLUME 83 fL (80-96); MONOCYTES # (AUTO) 0.2 K/uL (0.1-1.30); MONOCYTES % (AUTO) 2.1 % (2.0-12.0); NEUTROPHILS # (AUTO) 9.4 K/uL (1.8-8.9); NEUTROPHILS % (AUTO) 89.1 % (43.0-81.0); PLATELET COUNT (AUTO) 388 K/uL (150-450); RED BLOOD CELL COUNT(AUTO) 4.68 MIL/uL (4.5-6.0); RED CELL DISTRIBUTION WIDTH 17.9 % (11.5-15.0); WHITE BLOOD COUNT (AUTO) 10.6 K/uL (4.3-11.0)
[2024-04-30 13:12] LABS: SITE, VBG CL; VBG BASE EXCESS -1.8 mmol/L (-2.0-3.0); VBG COHb 0.1 % (0.5-1.5); VBG MetHb 0.2 % (0.5-1.5); VBG O2Hb 64.6 % (0-79); VBG OXYGEN SATURATION 64.8 % (60.0-85.0); VBG PCO2 34.5 mmHg (38.0-54.0); VBG PH 7.423 (7.320-7.430); VBG PO2 32.8 mmHg (23.0-48.0); VBG TOTAL HEMOGLOBIN 11.9 G/dL (13.5-17.5)
[2024-04-30 13:14] LABS: ALBUMIN 4.5 g/dL (3.4-5.0); BILIRUBIN,DIRECT 0.1 mg/dL (0.0-0.2); BILIRUBIN,TOTAL 0.6 mg/dL (0.2-1.0); CALCIUM, SERUM 9.3 mg/dL (8.5-10.1); POTASSIUM 3.8 mmol/L (3.5-5.1); TOTAL PROTEIN, SERUM 9.2 g/dL (6.4-8.2)
[2024-04-30] MEDS ORDERED: DEXTROSE 50%-WATER 50 ML DISP.SYRIN IV PRN (15:00)
[2024-04-30] MEDS ORDERED: METOCLOPRAMIDE HCL 10 MG/2 ML VIAL IV PRN (15:00)
[2024-04-30 15:05] LABS: LACTIC ACID 2.9 mmol/L (0.4-2.0)
[2024-04-30 15:10] VITALS: O2SAT 100
[2024-04-30 16:00] VITALS: BP 196/106; TEMP 98.2; O2SAT 100
[2024-04-30] MEDS: ONDANSETRON HCL/PF 4 MG/2 ML VIAL IV PRN (16:39)
[2024-04-30] MEDS: BLOOD SUGAR DIAGNOSTIC 1 EACH STRIP IN SCH (17:14)
[2024-04-30 20:00] VITALS: BP 171/102; TEMP 98.4; O2SAT 100
[2024-04-30 20:50] LABS: IRON, SERUM 33 ug/dl (50-175); TOTAL IRON BINDING CAPACITY 424 ug/dl (250-450)
[2024-04-30] MEDS ORDERED: IOHEXOL-350 100 ML VIAL IV ONE (21:03)
[2024-04-30] MEDS ORDERED: IV NS 0.9% 250 ML IV ONE (21:03)
[2024-04-30] MEDS: IV LR 1000 ML 1,000 ML IV ONE (21:20)
[2024-04-30] MEDS: IV LR 1000 ML 1,000 ML IV PRN (22:04)
[2024-05-01] MEDS ORDERED: TEMAZEPAM 7.5 MG CAPSULE PO PRN (02:00)
[2024-05-01] MEDS: INSULIN REGULAR, HUMAN 100 UNIT/ML 3 ML VIAL SQ PRN (06:11)
[2024-05-01] MEDS: PANTOPRAZOLE 40 MG TABLET.DR PO SCH (07:37)
[2024-05-01] MEDS: INSULIN GLARGINE, 100 UNIT/ML CARTRIDGE SQ SCH (09:00)
[2024-05-01] MEDS: HYDROMORPHONE 1 MG/1 ML DISP.SYRIN IV ONE (09:43)
[2024-05-01] MEDS: DEXTROSE 50%-WATER 50 ML DISP.SYRIN IVP ONE (12:25)
[2024-05-01] MEDS ORDERED: LORAZEPAM INJ 2 MG/ML VIAL IM ONE ×2 (13:30→14:00)
[2024-05-01] MEDS ORDERED: ONDA4TAB11 PO (13:39)
[2024-05-01] MEDS ORDERED: LORA-259 PO (13:39)
[2024-05-01] MEDS: LORAZEPAM INJ 2 MG/ML VIAL IM ONE (14:15)
[2024-05-01] MEDS: PROCHLORPERAZINE EDISYLATE 10 MG/2 ML VIAL IM ONE (14:15)
[2024-05-01 14:43] LABS: BASOPHILS # (AUTO) 0.1 K/uL (0.0-0.2); BASOPHILS % (AUTO) 0.5 % (0.0-2.0); EOSINOPHILS % (AUTO) 0.1 % (0.0-6.0); HEMATOCRIT 36 % (39-51); HEMOGLOBIN 11.4 g/dL (13.5-17.5); LYMPHOCYTES # (AUTO) 1.7 K/uL (0.8-4.8); LYMPHOCYTES % (AUTO) 13.3 % (20.0-44.0); MEAN CORPUSCULAR HEMOGLOBIN 26 PG (26.0-33.0); MEAN CORPUSCULAR HGB CONC 32 g/dl (31.0-36.0); MEAN CORPUSCULAR VOLUME 81 fL (80-96); MONOCYTES # (AUTO) 0.8 K/uL (0.1-1.30); NEUTROPHILS # (AUTO) 10.6 K/uL (1.8-8.9); NEUTROPHILS % (AUTO) 80.1 % (43.0-81.0); PLATELET COUNT (AUTO) 313 K/uL (150-450); RED BLOOD CELL COUNT(AUTO) 4.41 MIL/uL (4.5-6.0); RED CELL DISTRIBUTION WIDTH 18.1 % (11.5-15.0); WHITE BLOOD COUNT (AUTO) 13.2 K/uL (4.3-11.0)
[2024-05-01 14:57] LABS: CALCIUM, SERUM 8.7 mg/dL (8.5-10.1); CREATININE 0.9 mg/dL (0.6-1.3); PHOSPHORUS 3.8 mg/dL (2.5-4.9); POTASSIUM 3.7 mmol/L (3.5-5.1)
[2024-05-01] MEDS: MAGNESIUM OXIDE 400 MG TABLET PO ONE (15:18)
== END 2024-05-01 18:00 | disposition home or self-care (01) | DRG 48 ==
LOC: ER 09:41 → MED 14:04
PROVIDERS: ADMIT Nurse Practitioner Acute Care; ATTEND Nurse Practitioner Acute Care
DX: E10.43 Type 1 diabetes mellitus with diabetic autonomic (poly)neuropathy (principal); E87.20 Acidosis, unspecified; R11.15 Cyclical vomiting syndrome unrelated to migraine; K31.84 Gastroparesis; F12.10 Cannabis abuse, uncomplicated; E10.65 Type 1 diabetes mellitus with hyperglycemia; Z79.4 Long term (current) use of insulin; I10 Essential (primary) hypertension; Z88.8 Allergy status to other drugs, medicaments and biological substances; Z88.6 Allergy status to analgesic agent; Z91.013 Allergy to seafood; F44.9 Dissociative and conversion disorder, unspecified; Z90.49 Acquired absence of other specified parts of digestive tract; R00.0 Tachycardia, unspecified
CPT/HCPCS: 36415; 76705-TC; 80048-TC; 80076-TC; 82803-TC; 82962-TC; 83540-TC; 83605-TC; 83690-TC; 83735-TC; 84100-TC; 85025-TC; 87040-TC; G0378; J0780; J1171; J1200; J1815; J2060; J2405; J2470; J3490; J7030; J7050; J7120; Q9967

== ENCOUNTER 2024-07-15 11:57 | Inpatient (IN) | payer MEDICAID, OTHER ==
[~2024-07-15] VITALS: Ht 177.8 cm; Wt 66.7 kg
[~2024-07-15 11:57] MED LIST changes: -CEPH-570 PO; -FLUC150T PO; -INSU100I28 SQ; +LORA-259 PO; +ONDA4TAB11 PO; -SULF1TAB48 PO
[2024-07-15] MEDS ORDERED: MORPHINE SULFATE INJ 4 MG/ML DISP.SYRIN ONE (12:17)
[2024-07-15] MEDS ORDERED: ONDANSETRON HCL/PF 4 MG/2 ML VIAL ONE (12:17)
[2024-07-15] MEDS: IV NS 0.9% 1,000 ML BAG IV ONE (12:30)
[2024-07-15] MEDS: ONDANSETRON HCL/PF 4 MG/2 ML VIAL IVP ONE (12:30)
[2024-07-15] MEDS: MORPHINE SULFATE INJ 2 MG/ML DISP.SYRIN IV ONE (12:32)
[2024-07-15 12:34] LABS: BASOPHILS # (AUTO) 0.1 K/uL (0.0-0.2); BASOPHILS % (AUTO) 0.6 % (0.0-2.0); EOSINOPHILS # (AUTO) 0.1 K/uL (0.0-0.7); EOSINOPHILS % (AUTO) 0.5 % (0.0-6.0); HEMATOCRIT 36 % (39-51); LYMPHOCYTES % (AUTO) 13.8 % (20.0-44.0); MEAN CORPUSCULAR HEMOGLOBIN 25 PG (26.0-33.0); MEAN CORPUSCULAR HGB CONC 31 g/dl (31.0-36.0); MEAN CORPUSCULAR VOLUME 82 fL (80-96); MONOCYTES # (AUTO) 0.7 K/uL (0.1-1.30); MONOCYTES % (AUTO) 4.8 % (2.0-12.0); NEUTROPHILS # (AUTO) 11.7 K/uL (1.8-8.9); NEUTROPHILS % (AUTO) 80.3 % (43.0-81.0); PLATELET COUNT (AUTO) 366 K/uL (150-450); RED BLOOD CELL COUNT(AUTO) 4.34 MIL/uL (4.5-6.0); RED CELL DISTRIBUTION WIDTH 18.2 % (11.5-15.0); WHITE BLOOD COUNT (AUTO) 14.6 K/uL (4.3-11.0)
[2024-07-15 12:48] LABS: SITE, VBG RIGHT RADIAL; VBG BASE EXCESS -2.9 mmol/L (-2.0-3.0); VBG COHb 0.3 % (0.5-1.5); VBG HCO3 21.2 mmol/L (22.0-29.0); VBG MetHb 0.1 % (0.5-1.5); VBG O2Hb 97.4 % (0-79); VBG OXYGEN SATURATION 97.8 % (60.0-85.0); VBG PCO2 34.4 mmHg (38.0-54.0); VBG PH 7.407 (7.320-7.430); VBG PO2 107.4 mmHg (23.0-48.0); VBG TOTAL HEMOGLOBIN 12.1 G/dL (13.5-17.5)
[2024-07-15 12:54] LABS: MAGNESIUM 1.7 mg/dL (1.8-2.4); PHOSPHORUS 3.1 mg/dL (2.5-4.9)
[2024-07-15 13:06] LABS: ALBUMIN 4.2 g/dL (3.4-5.0); BILIRUBIN,DIRECT 0.1 mg/dL (0.0-0.2); BILIRUBIN,TOTAL 0.5 mg/dL (0.2-1.0); CALCIUM, SERUM 8.9 mg/dL (8.5-10.1); CREATININE 1.3 mg/dL (0.6-1.3); POTASSIUM 4.1 mmol/L (3.5-5.1); TOTAL PROTEIN, SERUM 8.4 g/dL (6.4-8.2)
[2024-07-15] MEDS ORDERED: LORAZEPAM INJ 2 MG/ML VIAL ONE (13:12)
[2024-07-15 13:15] LABS: ACETONE, SERUM MODERATE (NEGATIVE)
[2024-07-15] MEDS: LORAZEPAM INJ 2 MG/ML VIAL IV ONE (13:22)
[2024-07-15] MEDS ORDERED: HYDROMORPHONE 1 MG/1 ML DISP.SYRIN ONE (13:57)
[2024-07-15] MEDS: HYDROMORPHONE 1 MG/1 ML DISP.SYRIN IV ONE ×2 (14:05→21:07)
[2024-07-15] MEDS: INSULIN REGULAR, HUMAN 100 UNIT/ML 10 ML VIAL SQ ONE (14:18)
[2024-07-15] MEDS: Magnesium 1GM/D5W 100ML PREMIX 100 ML IV SCH (14:18)
[2024-07-15] MEDS: IV LR 1000 ML 1,000 ML IV ONE (15:30)
[2024-07-15] MEDS ORDERED: ACETAMINOPHEN 325 MG TABLET PO PRN (18:00)
[2024-07-15] MEDS ORDERED: DEXTROSE 50%-WATER 50 ML DISP.SYRIN IV PRN (18:00)
[2024-07-15] MEDS: MORPHINE SULFATE INJ 2 MG/ML DISP.SYRIN IV PRN (18:08)
[2024-07-15] MEDS: ONDANSETRON HCL/PF 4 MG/2 ML VIAL IVP PRN (18:08)
[2024-07-15 19:07] LABS: CALCIUM, SERUM 9.1 mg/dL (8.5-10.1); CREATININE 1.1 mg/dL (0.6-1.3); POTASSIUM 3.8 mmol/L (3.5-5.1)
[2024-07-15] MEDS: hydrALAZINE HCL IV 20 MG VIAL IV PRN (21:07)
[2024-07-15] MEDS: IV NS 0.9% 1,000 ML IV PRN (21:18)
[2024-07-15] MEDS: BLOOD SUGAR DIAGNOSTIC 1 EACH STRIP IN SCH (21:36)
[2024-07-15] MEDS: INSULIN REGULAR, HUMAN 100 UNIT/ML 3 ML VIAL SQ PRN (21:40)
[2024-07-16] MEDS: MAG HYDROX/AL HYDROX/SIMETH 30 ML UDC PO PRN (01:51)
[2024-07-16 04:00] VITALS: BP 155/98; TEMP 98.9; O2SAT 98
[2024-07-16] MEDS: INSULIN GLARGINE, 100 UNIT/ML CARTRIDGE SQ SCH (07:54)
[2024-07-16] MEDS: PANTOPRAZOLE 40 MG VIAL IV SCH (08:31)
[2024-07-16 10:27] LABS: BASOPHILS # (AUTO) 0.1 K/uL (0.0-0.2); BASOPHILS % (AUTO) 0.5 % (0.0-2.0); EOSINOPHILS % (AUTO) 0.2 % (0.0-6.0); HEMATOCRIT 38 % (39-51); LYMPHOCYTES # (AUTO) 1.8 K/uL (0.8-4.8); LYMPHOCYTES % (AUTO) 11.3 % (20.0-44.0); MEAN CORPUSCULAR HEMOGLOBIN 26 PG (26.0-33.0); MEAN CORPUSCULAR HGB CONC 32 g/dl (31.0-36.0); MEAN CORPUSCULAR VOLUME 80 fL (80-96); MONOCYTES # (AUTO) 0.8 K/uL (0.1-1.30); MONOCYTES % (AUTO) 5.1 % (2.0-12.0); NEUTROPHILS # (AUTO) 13.3 K/uL (1.8-8.9); NEUTROPHILS % (AUTO) 82.9 % (43.0-81.0); PLATELET COUNT (AUTO) 364 K/uL (150-450); RED BLOOD CELL COUNT(AUTO) 4.71 MIL/uL (4.5-6.0); RED CELL DISTRIBUTION WIDTH 18.6 % (11.5-15.0)
[2024-07-16 10:40] LABS: CALCIUM, SERUM 8.9 mg/dL (8.5-10.1); MAGNESIUM 2.1 mg/dL (1.8-2.4); PHOSPHORUS 3.2 mg/dL (2.5-4.9); POTASSIUM 3.5 mmol/L (3.5-5.1)
[2024-07-16] MEDS: ERYTHROMYCIN BASE 250 MG PO SCH (11:00)
[2024-07-16] MEDS: METOCLOPRAMIDE HCL 10 MG/2 ML VIAL IV SCH (11:35)
[2024-07-16] MEDS: diphenhydrAMINE HCL 50 MG/ML VIAL IV PRN (11:35)
[2024-07-16] MEDS: HYDROMORPHONE 1 MG/1 ML DISP.SYRIN IV PRN (11:49)
[2024-07-16 16:00] VITALS: BP 166/111; TEMP 98; O2SAT 100
[2024-07-16 16:20] VITALS: BP 157/100
[2024-07-16 20:53] VITALS: BP 150/102; TEMP 97.8; O2SAT 100
[2024-07-17 04:11] VITALS: BP 140/90; TEMP 98.1; O2SAT 100
[2024-07-17 07:04] LABS: BASOPHILS # (AUTO) 0.1 K/uL (0.0-0.2); BASOPHILS % (AUTO) 0.7 % (0.0-2.0); EOSINOPHILS # (AUTO) 0.1 K/uL (0.0-0.7); EOSINOPHILS % (AUTO) 0.6 % (0.0-6.0); HEMATOCRIT 32 % (39-51); HEMOGLOBIN 10.2 g/dL (13.5-17.5); LYMPHOCYTES # (AUTO) 2.4 K/uL (0.8-4.8); LYMPHOCYTES % (AUTO) 23.1 % (20.0-44.0); MEAN CORPUSCULAR HEMOGLOBIN 26 PG (26.0-33.0); MEAN CORPUSCULAR HGB CONC 32 g/dl (31.0-36.0); MEAN CORPUSCULAR VOLUME 81 fL (80-96); MONOCYTES # (AUTO) 0.9 K/uL (0.1-1.30); MONOCYTES % (AUTO) 8.5 % (2.0-12.0); NEUTROPHILS # (AUTO) 6.9 K/uL (1.8-8.9); NEUTROPHILS % (AUTO) 67.1 % (43.0-81.0); PLATELET COUNT (AUTO) 296 K/uL (150-450); RED BLOOD CELL COUNT(AUTO) 3.96 MIL/uL (4.5-6.0); RED CELL DISTRIBUTION WIDTH 18.3 % (11.5-15.0); WHITE BLOOD COUNT (AUTO) 10.3 K/uL (4.3-11.0)
[2024-07-17 07:16] LABS: CALCIUM, SERUM 8.1 mg/dL (8.5-10.1); CREATININE 1.1 mg/dL (0.6-1.3); MAGNESIUM 2.1 mg/dL (1.8-2.4); PHOSPHORUS 3.6 mg/dL (2.5-4.9); POTASSIUM 3.9 mmol/L (3.5-5.1)
[2024-07-17 10:29] VITALS: BP 151/104
[2024-07-17] MEDS ORDERED: INSU100V39 SQ (10:45)
[2024-07-17] MEDS ORDERED: HYDR-4075 PO (10:47)
== END 2024-07-17 14:50 | disposition home or self-care (01) | DRG 48 ==
LOC: ER 12:00 → TELE1 19:48 → MEDSG1 21:05
PROVIDERS: ADMIT Nurse Practitioner Acute Care; ATTEND Nurse Practitioner Acute Care
DX: E11.43 Type 2 diabetes mellitus with diabetic autonomic (poly)neuropathy (principal); D72.829 Elevated white blood cell count, unspecified; E11.65 Type 2 diabetes mellitus with hyperglycemia; E83.42 Hypomagnesemia; F12.90 Cannabis use, unspecified, uncomplicated; I16.0 Hypertensive urgency; K31.84 Gastroparesis; I10 Essential (primary) hypertension; R11.15 Cyclical vomiting syndrome unrelated to migraine; Z90.49 Acquired absence of other specified parts of digestive tract; Z88.8 Allergy status to other drugs, medicaments and biological substances; Z91.013 Allergy to seafood; Z79.4 Long term (current) use of insulin; Z79.899 Other long term (current) drug therapy; Z91.148 Patient's other noncompliance with medication regimen for other reason
CPT/HCPCS: 36415; 36600; 80048-TC; 80076-TC; 82010-TC; 82803-TC; 82962-TC; 83690-TC; 83735-TC; 84100-TC; 85025-TC; A4223; G0378; J0360; J1171; J1200; J1815; J2060; J2270; J2405; J2470; J2765; J3475; J7030; J7120

== ENCOUNTER 2024-07-27 17:20 | Emergency (ER) | payer MEDICAID ==
[~2024-07-27] VITALS: Ht 180.3 cm; Wt 77.1 kg
[~2024-07-27 17:20] MED LIST changes: +HYDR-4075 PO; -INSU100I14 SQ; +INSU100V39 SQ; -LORA-259 PO; -ONDA4TAB11 PO
[2024-07-27 17:34] VITALS: BP 136/96; TEMP 98.1; O2SAT 100
[2024-07-27] MEDS ORDERED: INSU100V39 SQ (17:48)
== END 2024-07-27 18:12 | disposition home or self-care (01) ==
LOC: ER 17:23
DX: E11.43 Type 2 diabetes mellitus with diabetic autonomic (poly)neuropathy (principal); I10 Essential (primary) hypertension; K31.84 Gastroparesis; Z79.899 Other long term (current) drug therapy; Z90.49 Acquired absence of other specified parts of digestive tract; Z76.0 Encounter for issue of repeat prescription

== ENCOUNTER 2024-08-05 18:25 | Emergency (ER) | payer MEDICAID ==
[~2024-08-05] VITALS: Ht 180.3 cm; Wt 77.1 kg
[2024-08-05] MEDS ORDERED: TETRAcaine 5 ML BOTTLE ONE (20:10)
[2024-08-05] MEDS: FLUORESCEIN SODIUM OPHTH 1 EA STRIP OP ONE (20:12)
[2024-08-05 22:32] VITALS: BP 125/82; TEMP 99.3; O2SAT 100
[2024-08-06] MEDS ORDERED: ONDA4TAB5 PO (08:30)
== END 2024-08-05 22:33 | disposition left against medical advice (07) ==
LOC: ER 18:35
DX: H53.8 Other visual disturbances (principal); E10.43 Type 1 diabetes mellitus with diabetic autonomic (poly)neuropathy; F17.200 Nicotine dependence, unspecified, uncomplicated; I10 Essential (primary) hypertension; K31.84 Gastroparesis; Z79.4 Long term (current) use of insulin; Z79.899 Other long term (current) drug therapy; Z90.49 Acquired absence of other specified parts of digestive tract
CPT/HCPCS: 82962-TC

== ENCOUNTER 2024-08-06 06:01 | Emergency (ER) | payer MEDICAID ==
[~2024-08-06] VITALS: Ht 175.3 cm; Wt 77.1 kg
[2024-08-06] MEDS ORDERED: MORPHINE SULFATE INJ 4 MG/ML DISP.SYRIN ONE (06:21)
[2024-08-06] MEDS ORDERED: diphenhydrAMINE HCL 50 MG/ML VIAL ONE (06:23)
[2024-08-06] MEDS ORDERED: ONDANSETRON HCL/PF 4 MG/2 ML VIAL ONE (06:23)
[2024-08-06] MEDS: ONDANSETRON HCL/PF 4 MG/2 ML VIAL IVP ONE (06:28)
[2024-08-06] MEDS: diphenhydrAMINE HCL 50 MG/ML VIAL IV ONE (06:28)
[2024-08-06] MEDS: IV NS 0.9% 1,000 ML BAG IV ONE (06:28)
[2024-08-06] MEDS: MORPHINE SULFATE INJ 2 MG/ML DISP.SYRIN IV ONE (06:28)
[2024-08-06 06:40] LABS: BASOPHILS % (AUTO) 0.3 % (0.0-2.0); EOSINOPHILS # (AUTO) 0.1 K/uL (0.0-0.7); EOSINOPHILS % (AUTO) 0.8 % (0.0-6.0); HEMATOCRIT 39 % (39-51); HEMOGLOBIN 12.2 g/dL (13.5-17.5); LYMPHOCYTES % (AUTO) 20.6 % (20.0-44.0); MEAN CORPUSCULAR HEMOGLOBIN 25 PG (26.0-33.0); MEAN CORPUSCULAR HGB CONC 31 g/dl (31.0-36.0); MEAN CORPUSCULAR VOLUME 79 fL (80-96); MONOCYTES # (AUTO) 0.6 K/uL (0.1-1.30); MONOCYTES % (AUTO) 6.1 % (2.0-12.0); NEUTROPHILS # (AUTO) 7.1 K/uL (1.8-8.9); NEUTROPHILS % (AUTO) 72.2 % (43.0-81.0); PLATELET COUNT (AUTO) 325 K/uL (150-450); RED BLOOD CELL COUNT(AUTO) 4.98 MIL/uL (4.5-6.0); RED CELL DISTRIBUTION WIDTH 17.7 % (11.5-15.0); WHITE BLOOD COUNT (AUTO) 9.9 K/uL (4.3-11.0)
[2024-08-06 06:53] LABS: CALCIUM, SERUM 9.5 mg/dL (8.5-10.1); CREATININE 1.2 mg/dL (0.6-1.3); POTASSIUM 3.7 mmol/L (3.5-5.1)
[2024-08-06 07:00] LABS: ALBUMIN 4.3 g/dL (3.4-5.0); BILIRUBIN,DIRECT 0.1 mg/dL (0.0-0.2); BILIRUBIN,TOTAL 0.5 mg/dL (0.2-1.0); TOTAL PROTEIN, SERUM 8.5 g/dL (6.4-8.2)
[2024-08-06 07:01] LABS: ALCOHOL, BLOOD < 3 mg/dL (0-10)
[2024-08-06 07:16] LABS: ACETONE, SERUM NEGATIVE (NEGATIVE)
[2024-08-06] MEDS ORDERED: HYDROMORPHONE 1 MG/1 ML DISP.SYRIN ONE ×2 (07:43→09:02)
[2024-08-06] MEDS ORDERED: METOCLOPRAMIDE HCL 10 MG/2 ML VIAL ONE (07:43)
[2024-08-06] MEDS: METOCLOPRAMIDE HCL 10 MG/2 ML VIAL IV ONE (07:53)
[2024-08-06] MEDS: HYDROMORPHONE 1 MG/1 ML DISP.SYRIN IV ONE ×2 (07:53→09:00)
[2024-08-06] MEDS ORDERED: ONDA4TAB5 PO (08:30)
[2024-08-06 10:47] VITALS: BP 149/91; TEMP 98.1; O2SAT 99
== END 2024-08-06 10:48 | disposition home or self-care (01) ==
LOC: ER 06:03
DX: K31.84 Gastroparesis (principal); R10.13 Epigastric pain; H53.8 Other visual disturbances; R11.15 Cyclical vomiting syndrome unrelated to migraine; H33.21 Serous retinal detachment, right eye; E11.43 Type 2 diabetes mellitus with diabetic autonomic (poly)neuropathy; F12.90 Cannabis use, unspecified, uncomplicated; F17.200 Nicotine dependence, unspecified, uncomplicated; I10 Essential (primary) hypertension; Z79.899 Other long term (current) drug therapy; Z90.49 Acquired absence of other specified parts of digestive tract
CPT/HCPCS: 99285; 96374; 96361; 96375; 93005; 71045; 96376; 85025; 80048; 82010; 83690; 80076; 36415; 82962; 80320; J1200; J2270; J2765; J2405; J1171 ×2; G0480

== ENCOUNTER 2024-08-09 06:09 | Emergency (ER) | payer MEDICAID ==
[~2024-08-09] VITALS: Ht 170.2 cm; Wt 77.1 kg
[~2024-08-09 06:09] MED LIST changes: +ONDA4TAB5 PO
[2024-08-09] MEDS ORDERED: ONDANSETRON HCL/PF 4 MG/2 ML VIAL ONE (06:53)
[2024-08-09] MEDS: IV NS 0.9% 1,000 ML BAG IV ONE (07:19)
[2024-08-09] MEDS: ONDANSETRON HCL/PF 4 MG/2 ML VIAL IVP ONE (07:19)
[2024-08-09] MEDS: FAMOTIDINE/PF INJ 20 MG/2 ML VIAL IV ONE (07:20)
[2024-08-09] MEDS: ACETAMINOPHEN ES 500 MG TABLET PO ONE (07:20)
[2024-08-09 07:22] LABS: SITE, VBG VBG - N/A; VBG BASE EXCESS -13.2 mmol/L (-2.0-3.0); VBG COHb 0.3 % (0.5-1.5); VBG HCO3 10.1 mmol/L (22.0-29.0); VBG MetHb 0.7 % (0.5-1.5); VBG O2Hb 34.2 % (0-79); VBG OXYGEN SATURATION 34.5 % (60.0-85.0); VBG PCO2 15.6 mmHg (38.0-54.0); VBG PH 7.427 (7.320-7.430); VBG PO2 21.9 mmHg (23.0-48.0); VBG TOTAL HEMOGLOBIN 5.7 G/dL (13.5-17.5)
[2024-08-09 07:34] LABS: BASOPHILS # (AUTO) 0.1 K/uL (0.0-0.2); BASOPHILS % (AUTO) 0.6 % (0.0-2.0); EOSINOPHILS # (AUTO) 0.1 K/uL (0.0-0.7); EOSINOPHILS % (AUTO) 0.5 % (0.0-6.0); HEMATOCRIT 41 % (39-51); HEMOGLOBIN 13.3 g/dL (13.5-17.5); LYMPHOCYTES # (AUTO) 2.1 K/uL (0.8-4.8); LYMPHOCYTES % (AUTO) 15.4 % (20.0-44.0); MEAN CORPUSCULAR HEMOGLOBIN 26 PG (26.0-33.0); MEAN CORPUSCULAR HGB CONC 33 g/dl (31.0-36.0); MEAN CORPUSCULAR VOLUME 78 fL (80-96); MONOCYTES % (AUTO) 7.3 % (2.0-12.0); NEUTROPHILS # (AUTO) 10.6 K/uL (1.8-8.9); NEUTROPHILS % (AUTO) 76.2 % (43.0-81.0); PLATELET COUNT (AUTO) 459 K/uL (150-450); RED BLOOD CELL COUNT(AUTO) 5.22 MIL/uL (4.5-6.0); RED CELL DISTRIBUTION WIDTH 17.4 % (11.5-15.0); WHITE BLOOD COUNT (AUTO) 13.9 K/uL (4.3-11.0)
[2024-08-09 07:43] LABS: ALANINE AMINOTRANSFERASE 26 U/L (12-78); ALKALINE PHOSPHATASE 160 U/L (46-116); ASPARTATE AMINOTRANSFERASE 23 U/L (15-37); BILIRUBIN,DIRECT 0.2 mg/dL (0.0-0.2); CARBON DIOXIDE 25 mmol/L (21-32); CHLORIDE 91 mmol/L (98-107); CREATININE 1.5 mg/dL (0.6-1.3); LIPASE 36 U/L (16-77); SODIUM SERUM 129 mmol/L (136-145); TOTAL PROTEIN, SERUM 9.6 g/dL (6.4-8.2); UREA NITROGEN, BLOOD 24 mg/dL (7-18)
[2024-08-09 07:54] LABS: GLUCOSE 404 mg/dL (74-106)
[2024-08-09 08:06] VITALS: BP 152/89; TEMP 98.2; O2SAT 97
== END 2024-08-09 08:06 | disposition left against medical advice (07) ==
LOC: ER 06:12
DX: R10.84 Generalized abdominal pain (principal); E11.43 Type 2 diabetes mellitus with diabetic autonomic (poly)neuropathy; F17.200 Nicotine dependence, unspecified, uncomplicated; I10 Essential (primary) hypertension; Z79.899 Other long term (current) drug therapy; Z90.49 Acquired absence of other specified parts of digestive tract; Z88.8 Allergy status to other drugs, medicaments and biological substances; Z91.013 Allergy to seafood
CPT/HCPCS: 99284; 96374; 96361; 93005; 82803 ×2; 85025; 80048; 83690; 80076; 36415; 84484; 82962; J2405; J7030

== ENCOUNTER 2024-08-12 19:59 | Emergency (ER) | payer BC, MEDICAID, OTHER ==
[~2024-08-12] VITALS: Ht 180.3 cm; Wt 77.1 kg
[2024-08-12 21:02] LABS: APPEARANCE,URINE CLEAR (CLEAR); BILIRUBIN,URINE NEGATIVE (NEGATIVE); BLOOD, URINE NEGATIVE Ery/uL (NEGATIVE); COLOR,URINE YELLOW (YELLOW); KETONES,URINE NEGATIVE (NEGATIVE); LEUKOCYTE ESTERASE ,URINE NEGATIVE (NEGATIVE); NITRITE, URINE NEGATIVE (NEGATIVE); PROTEIN,URINE 2+ mg/dl (NEGATIVE); UGLUCOSE NEGATIVE (NEGATIVE); UROBILINOGEN,URINE 0.2 EU/dL (0.2)
[2024-08-12 21:07] VITALS: BP 127/73; TEMP 99.1; O2SAT 100
[2024-08-12 21:21] LABS: ADD URINE CULTURE NO; BACTERIA,URINE Rare /HPF (None Seen); SQUAMOUS EPITHELIAL CELL,UR None Seen /HPF (None Seen); WBC,URINE 0-2 /HPF (0-3)
[2024-08-12 21:22] LABS: SPERM,URINE Few /HPF (None Seen)
[2024-08-12] MEDS ORDERED: SULF1TAB48 PO (21:34)
== END 2024-08-12 21:56 | disposition home or self-care (01) ==
LOC: ER 20:03
DX: R30.0 Dysuria (principal); E11.43 Type 2 diabetes mellitus with diabetic autonomic (poly)neuropathy; F17.200 Nicotine dependence, unspecified, uncomplicated; I10 Essential (primary) hypertension; K31.84 Gastroparesis; Z79.899 Other long term (current) drug therapy; Z90.49 Acquired absence of other specified parts of digestive tract; Z91.013 Allergy to seafood; Z88.8 Allergy status to other drugs, medicaments and biological substances; Z88.6 Allergy status to analgesic agent
CPT/HCPCS: 81001

== ENCOUNTER 2024-08-17 23:15 | Emergency (ER) | payer BC, MEDICAID ==
[~2024-08-17] VITALS: Ht 180.3 cm; Wt 88.5 kg
[~2024-08-17 23:15] MED LIST changes: +SULF1TAB48 PO
[2024-08-18] MEDS ORDERED: CEPHALEXIN MONOHYDRATE 500 MG CAPSULE PO ONE ×2 (02:06→02:30)
[2024-08-18] MEDS ORDERED: CEPH500C2 PO (02:16)
[2024-08-18 02:20] VITALS: BP 124/78; TEMP 97.9; O2SAT 98
== END 2024-08-18 02:20 | disposition home or self-care (01) ==
LOC: ER 23:30
DX: S61.210A Laceration without foreign body of right index finger without damage to nail, initial encounter (principal); I10 Essential (primary) hypertension; E11.43 Type 2 diabetes mellitus with diabetic autonomic (poly)neuropathy; F17.200 Nicotine dependence, unspecified, uncomplicated; K31.84 Gastroparesis; Z48.00 Encounter for change or removal of nonsurgical wound dressing; Z79.899 Other long term (current) drug therapy; Z90.49 Acquired absence of other specified parts of digestive tract; W26.0XXA Contact with knife, initial encounter; Y93.G3 Activity, cooking and baking; Y92.89 Other specified places as the place of occurrence of the external cause; Y99.8 Other external cause status

== ENCOUNTER 2024-09-21 19:52 | Emergency (ER) | payer MEDICAID ==
[~2024-09-21] VITALS: Ht 180.3 cm; Wt 77.1 kg
[~2024-09-21 19:52] MED LIST changes: +CEPH500C2 PO
[2024-09-21 20:57] VITALS: TEMP 98.4
[2024-09-21] MEDS ORDERED: HYDR-3972 PO (22:52)
[2024-09-21 23:01] VITALS: BP 125/70; O2SAT 100
== END 2024-09-21 23:02 | disposition home or self-care (01) ==
LOC: ER 19:57
DX: M79.604 Pain in right leg (principal); M51.372 Other intervertebral disc degeneration, lumbosacral region with discogenic back pain and lower extremity pain; F17.200 Nicotine dependence, unspecified, uncomplicated; I10 Essential (primary) hypertension; E11.43 Type 2 diabetes mellitus with diabetic autonomic (poly)neuropathy; K31.84 Gastroparesis; Z79.899 Other long term (current) drug therapy; Z90.49 Acquired absence of other specified parts of digestive tract; W01.0XXA Fall on same level from slipping, tripping and stumbling without subsequent striking against object, initial encounter; Y93.89 Activity, other specified; Y92.89 Other specified places as the place of occurrence of the external cause; Y99.8 Other external cause status
CPT/HCPCS: 73502; 73552; 73564-TC; 73590-TC

== ENCOUNTER 2024-12-10 13:21 | Emergency (ER) | payer MEDICAID ==
[~2024-12-10] VITALS: Ht 180.3 cm; Wt 76.2 kg
[~2024-12-10 13:21] MED LIST changes: +HYDR-3972 PO
[2024-12-10] MEDS: IV NS 0.9% 1,000 ML BAG IV ONE (13:30)
[2024-12-10] MEDS: ONDANSETRON HCL/PF 4 MG/2 ML VIAL IVP ONE (13:30)
[2024-12-10 13:53] LABS: PLATELET COUNT (AUTO) 341 K/uL (150-450); RED BLOOD CELL COUNT(AUTO) 4.51 MIL/uL (4.5-6.0); RED CELL DISTRIBUTION WIDTH 18.9 % (11.5-15.0); WHITE BLOOD COUNT (AUTO) 8.2 K/uL (4.3-11.0)
[2024-12-10] MEDS ORDERED: ONDANSETRON HCL/PF 4 MG/2 ML VIAL ONE (14:07)
[2024-12-10 14:10] LABS: CALCIUM, SERUM 9.0 mg/dL (8.5-10.1); CREATININE 1.3 mg/dL (0.6-1.3); SODIUM SERUM 143.0 mmol/L (136-145); UREA NITROGEN, BLOOD 25.0 mg/dL (7-18)
[2024-12-10 14:12] LABS: ALCOHOL, BLOOD < 3 mg/dL (0-10)
[2024-12-10 14:16] LABS: ASPARTATE AMINOTRANSFERASE 19.0 U/L (15-37); TOTAL PROTEIN, SERUM 7.8 g/dL (6.4-8.2)
[2024-12-10 14:17] LABS: ACETONE, SERUM NEGATIVE (NEGATIVE)
[2024-12-10 14:35] LABS: FRACTIONATED INSPIRED OXYGEN-V 21.0 %; SITE, VBG VBG - N/A; VBG BASE EXCESS 1.9 mmol/L (-2.0-3.0); VBG HCO3 26.8 mmol/L (22.0-29.0); VBG MetHb 0.0 % (0.5-1.5); VBG OXYGEN SATURATION 89.0 % (60.0-85.0); VBG PCO2 43.3 mmHg (38.0-54.0); VBG PH 7.410 (7.320-7.430); VBG PO2 59.0 mmHg (23.0-48.0); VBG TOTAL HEMOGLOBIN 10.9 G/dL (13.5-17.5)
[2024-12-10 15:32] VITALS: BP 121/66; TEMP 98.5; O2SAT 99
== END 2024-12-10 15:33 | disposition home or self-care (01) ==
LOC: ER 13:23
DX: E11.43 Type 2 diabetes mellitus with diabetic autonomic (poly)neuropathy (principal); I10 Essential (primary) hypertension; F17.200 Nicotine dependence, unspecified, uncomplicated; K31.84 Gastroparesis; Z79.899 Other long term (current) drug therapy; Z90.49 Acquired absence of other specified parts of digestive tract; Z88.8 Allergy status to other drugs, medicaments and biological substances; Z91.013 Allergy to seafood; Z98.890 Other specified postprocedural states
CPT/HCPCS: 99285; 96360; 93005; 82803 ×2; 71045; 85025; 80048; 82010; 83690; 80076; 83036; 36415; 80320; J2405; J7030; G0480